=== PATIENT | female | born 1975 | race African-American/Black ===

== ENCOUNTER 2022-05-24 14:57 | Emergency (ER) | payer BC, SELFPAY ==
--- NOTE | ~2022-05-24 | XR_ITS ---
EXAM: XR finger 5th LT min 2V DATE: 05/24/2022 15:34 HISTORY: LT 5TH FINGER PAIN , INJURY . COMPARISON: None available. FINDINGS: Normal mineralization. No fracture or dislocation. No lytic or blastic lesion. Mild scatte red degenerative change. No erosion or periosteal change. Soft tissues within normal limits. IMPRESSION: No acute osseous finding in the left fifth digit. Reviewed, dictated and finalized at location [facility]
--- NOTE | 2022-05-24 15:01 | ED.UPPEXIN ---
HPI - Extremity Injury (Upper) General Chief Complaint: Extremity Injury, Upper Stated Complaint: Left pinky finger injury Time Seen by Provider: 05/24/22 15:01 Source: patient Mode of arrival: ambulatory Limitations: no limitations History of Present Illness HPI narrative: Ms. Choi is a 47-year-old female patient presenting to the clinic today with complaints of left 5th finger injury. She reports she smashed her left pinky finger in between a folding chair and then smacked her finger up against a wall. Related Data Home Medications Medication Instructions Recorded Confirmed amlodipine 10 mg tablet 10 mg DAILY 05/24/22 05/24/22 Allergies Allergy/AdvReac Type Severity Reaction Status Date / Time tramadol AdvReac Nausea and Verified 05/24/22 15:08 Vomiting Review of Systems Review of Systems: Pertinent positives per HPI. Patient denies any fever, chills, rash, headache, visual changes, dizziness, cough, runny nose, sore throat, shortness of breath, chest pain, palpitations, nausea, vomiting, diarrhea, constipation, abdominal pain, or any urinary issues. PMFSH Social History Social History Alcohol intake: never Comments At the time of my signature, I reviewed and agree with the nursing past medical, surgical, social, and family history. There is no relevant family history pertinent to the patient complaint. Exam Narrative: General: Well-developed, well nourished, in no apparent distress Head: Normocephalic, atraumatic. Cardio: Regular rate and rhythm, s1 and s2 normal, no murmur appreciated. Resp: Clear to auscultation bilaterally, no rhonchi, rales, wheezing or rubs. Musculoskeletal: No deformity, redness and swelling noted to the proximal left 5th finger joint, tender to palpation, grossly normal range of motion, muscle strength strong and equal, peripheral pulse strong, no cyanosis, normal gait and station Course Course Emergency Course: Portions of this record may have been created with voice recognition software. Level of Care: Express Care Visit Vital Signs Vital signs: Vital Signs Temperature 36.6 C 05/24/22 15:06 Pulse Rate 70 05/24/22 15:06 Respiratory Rate 18 05/24/22 15:06 Blood Pressure 171/98 H 05/24/22 15:06 Pulse Oximetry 100 05/24/22 15:06 Oxygen Delivery Room Air 05/24/22 15:06 Temperature 36.6 C 05/24/22 15:06 Pulse Rate 70 05/24/22 15:06 Respiratory Rate 18 05/24/22 15:06 Blood Pressure 171/98 H 05/24/22 15:06 Pulse Oximetry 100 05/24/22 15:06 Oxygen Delivery Room Air 05/24/22 15:06 Vital signs reviewed MDM - Extremity Injury (Upper) MDM Narrative Medical decision making narrative: At the time of visit patient is resting comfortably on the exam table. x-ray was completed and was negative for any sign of fracture or malalignment of the left 5th finger. I suspect the patient has a contusion/ soft tissue injury of the left 5th finger. Supportive measures were discussed with the patient she voiced understanding of discharge instructions and agrees to treatment plan. Differential Diagnosis Differential diagnosis: Likely other ( Finger fracture, finger sprain , finger contusion) Imaging Data Radiologist's impression: Close Finger X-Ray (Signed) [facility] - 05/24/22 Launch?[facility] [place] [address] XRay Report Signed Patient: Catrachita Choi : 1975 MR#: [id number] Age/Sex: 47 / F Acct:[id number] Loc: [facility]? ? ADM Date: 05/24/22Attending Dr: Ordering Physician: Prosper Contreras APRN Date of Service: 05/24/22 Procedure(s): XR finger 5th LT min 2V Accession Number(s): [id number] cc: Ananya, Raya Gonzalez APRN; Prosper Contreras APRN~ EXAM:? XR finger 5th LT min 2V DATE: 05/24/2022 15:34 HISTORY: LT 5TH FINGER PAIN ,
[2022-05-24 15:06] VITALS: BP 171/98; PULSE 70; RESP 18; TEMP 36.6; O2SAT 100
== END 2022-05-24 15:54 | disposition home or self-care (01) ==
PROVIDERS: Emergency Provider Nurse Practitioner Family; PCP Nurse Practitioner Family
DX: S60.052A Contusion of left little finger without damage to nail, initial encounter (principal); X58.XXXA Exposure to other specified factors, initial encounter; M25.442 Effusion, left hand
CPT/HCPCS: 73140; 99213; G0463

== ENCOUNTER 2024-10-01 16:49 | Inpatient (IN) | payer OTHER, SELFPAY ==
[2024-10-01] VITALS (22 sets, daily range): BP systolic 136–161; BP diastolic 76–105; PULSE 64–108; RESP 13–25; TEMP 36.8; O2SAT 98–100
--- NOTE | ~2024-10-01 | CT_ITS ---
EXAMINATION: CTA brain carotid DATE: 10/01/2024 23:11 INDICATION: Persistent dizziness TECHNIQUE: Computed tomographic angiography (CTA) of the head was performed without and with 100 mL O mnipaque-350 intravenous contrast. CTA of the neck was performed with intravenous contrast. The dose- length product was 1746.99 mGy-cm. Maximum intensity projection and volume rendered 3D-reconstruction s were created by the technologist on a separate workstation. COMPARISON: None. FINDINGS: CT BRAIN: No acute large vessel infarct, intracranial hemorrhage, mass, or hydrocephalus. Nodular mucosal thick ening in all paranasal sinuses except the frontal sinuses. Aerated secretions in the left maxillary a nd ethmoid sinuses. The mastoid air cells are clear. CTA HEAD: 3 mm saccular aneurysm projecting off the left anterior cerebral artery at the level of the anterior communication artery. 4 mm hyperdensity at the anterior interhemispheric fissure, associated with the anterior portion of the inferior sagittal sinus, and enhancing to the same degree. No large vessel o cclusion, high flow vascular malformation or extravasation. CTA NECK: Aortic arch and proximal great vessels: Normal arch anatomy. Mild dilation of the aortic arch to 3.1 cm Atherosclerotic calcifications at the visualized aortic arch and proximal great vessels. Right common carotid, carotid bifurcation, and internal carotid artery: Calcified atherosclerotic christina que at the carotid bifurcation.There is % stenosis of the proximal right internal carotid artery rela tive to normal distal artery lumen diameter (NASCET criteria). Left common carotid, carotid bifurcation, and internal carotid artery: Calcified atherosclerotic plaq ue at the carotid bifurcation.There is % stenosis of the proximal left internal carotid artery relati ve to normal distal artery lumen diameter (NASCET criteria). Vertebral arteries: Somewhat limited evaluation of the vertebral arteries due to beam hardening, meta l artifact, and quantum mottle. No significant plaque or stenosis. Left vertebral artery is dominant. Other findings: Enlarged thyroid. 2.2 cm left thyroid nodule. IMPRESSION: No acute intracranial process. Mucoperiosteal sinus disease, with possible acute sinusitis involving the left maxillary and ethmoid sinuses. No large vessel intracranial occlusion or high-grade intracranial stenosis. 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 4 mm h yperdensity associated with the anterior inferior sagittal sinus, possibly representing a small venou s confluence. DVA, AVM, fenestration, or aneurysm not excluded. Consider nonemergent but timely MRI o f the brain without and with contrast, with MRA/MRV. No carotid or vertebral artery occlusion, dissection, or significant stenosis. 2.2 cm left thyroid nodule, recommend outpatient thyroid ultrasound for further characterization. Reviewed, dictated and finalized at location K. IMPRESSION: No acute intracranial process. Mucoperiosteal sinus disease, with possible acute sinusitis involving the left maxillary and ethmoid sinuses. No large vessel intracranial occlusion or high-grade intracranial stenosis. 3 mm left anterior cerebral artery aneurysm at the level of the anterior commun ication artery. 4 mm hyperdensity associated with the anterior inferior sagitta l sinus, possibly representing a small venous confluence. DVA, AVM, fenestratio n, or aneurysm not excluded. Consider nonemergent but timely MRI of the brain w ithout and with contrast, with MRA/MRV. No carotid or vertebral artery occlusion, dissection, or significant stenosis. 2.2 cm left thyroid nodule, recommend outpatient thyroid ultrasound for further characterization.
--- NOTE | ~2024-10-01 | MR_ITS ---
EXAMINATION: MR brain/brain stem wo con DATE: 10/02/2024 13:48 INDICATION: Transient ischemic episode TECHNIQUE: Magnetic resonance imaging (MRI) of the brain and brainstem was performed without intraven ous contrast. Sequences included sagittal and axial T1-weighted SE, axial diffusion-weighted FS SE, a xial T2*-weighted GRE, axial T2-weighted FLAIR, and axial T2-weighted FSE. Apparent diffusion coeffic ient (ADC) maps were created. COMPARISON: None. FINDINGS: There are no areas of restricted diffusion to suggest acute infarction. No intracranial hemorrhage or abnormal intracranial mass lesion. There are scattered areas of nonspecific increased T2-weighted si gnal intensity in the cerebral white matter, predominantly involving the deep and periventricular whi te matter. There are no intraparenchymal signal abnormalities seen on the other pulse sequences. The ventricles are symmetric and normal in size. There are no abnormal extra-axial fluid collections. Derek w voids are seen in the cerebral arteries on the T2-weighted sequences consistent with their expected patency. Moderate mucosal thickening throughout the paranasal sinuses most prominent in the left max illary sinus. Visualized orbits and soft tissues are unremarkable. IMPRESSION: 1. Normal brain. 2. Sinus disease. Reviewed, dictated and finalized at location A.
--- NOTE | ~2024-10-01 | CT_ITS ---
EXAMINATION: CT diagnostic chest wo con DATE: 10/01/2024 23:02 INDICATION: diffuse rhonchi TECHNIQUE: Computed tomography (CT) of the chest was performed with 100 mL Omnipaque-350 intravenous contrast. Automated exposure control and iterative reconstruction technique were employed. The dose-l ength product was 723.76 mGy-cm. COMPARISON: X-ray chest, same date. FINDINGS: CHEST: Thoracic aorta: Dilation of the thoracic aortic arch to 3.3 cm. Mild atherosclerotic calcification. Lung parenchyma and airways: Scattered subcentimeter pulmonary nodules. Patent airways. Mild dependen t scar/atelectasis. Scattered small air cysts. Thoracic inlet, axillae and chest wall: Enlarged thyroid gland. No axillary lymphadenopathy. Mediastinum: Dilated central pulmonary arteries. No lymphadenopathy. Heart and pericardium: Cardiomegaly. Coronary artery calcifications: Absent. Pleura: No effusion or mass. Upper abdomen: No significant finding. Thoracic bones: No acute osseous finding in the chest. IMPRESSION: Thyroid goiter. Scattered sub-6 mm pulmonary nodules, which require no additional evaluation unless the patient is at high risk, in which case consider low-dose noncontrast CT of the chest in one year. Dilated central pulmonary arteries as can be seen with pulmonary arterial hypertension. Reviewed, dictated and finalized at location K. IMPRESSION: Thyroid goiter. Scattered sub-6 mm pulmonary nodules, which require no additional evaluation un less the patient is at high risk, in which case consider low-dose noncontrast C T of the chest in one year. Dilated central pulmonary arteries as can be seen with pulmonary arterial hyper tension.
--- NOTE | ~2024-10-01 | XR_ITS ---
XR chest 1V portable Ordering provider: Spring Mejia History: 49 years Female with . palpitations . Comparison: None. FINDINGS: MEDIASTINUM: The cardiac silhouette is not enlarged. LUNGS: No infiltrates, effusions or pneumothorax. OTHER: No free air under the diaphragm. IMPRESSION: No acute cardiopulmonary pathology Reviewed, dictated and finalized at location A.
--- NOTE | ~2024-10-01 | US_ITS ---
US thyroid INDICATION: Thyroid goiter TECHNIQUE: Real-time sonographic images of the thyroid gland were obtained. COMPARISON: No prior studies for comparison. FINDINGS: The right thyroid lobe measures 6.5 x 2.4 x 2.1 cm. The left thyroid lobe measures 7 x 2.2 x 3 cm. There is normal echotexture and echogenicity throughout the thyroid gland. There is a 11 mm cyst in the right thyroid lobe, no clinical significance. There are multiple small cysts of the left lobe. Additionally in the left lobe there is a complex heterogeneous mass measuring 2.9 x 2.3 x 2.2 c m which is solid, predominantly hypoechoic, wider than tall, ill-defined margins without echogenic fo ci, TR 4. Increased bilateral vascular flow is present. IMPRESSION: 1. Complex 2.9 cm left thyroid mass, TR 4. Ultrasound-guided fine-needle aspiration biopsy recommend ed. Reviewed, dictated and finalized at location A. IMPRESSION: 1. Complex 2.9 cm left thyroid mass, TR 4. Ultrasound-guided fine-needle aspir ation biopsy recommended.
--- NOTE | ~2024-10-01 | MR_ITS ---
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 COMPARISON: None. FINDINGS: There is normal flow related signal seen within the vertebral, basilar and internal carotid arteries. There is no proximal stenosis. Both A1 and P1 segments are patent. Again seen is a 3 mm aneurysm a rising from the origin of the intercommunicating artery from the left anterior cerebral artery. Flow in the cerebral arteries is symmetric. IMPRESSION: 1. Redemonstration of a 3 mm saccular aneurysm arising at the junction of the anterior cerebral and a nterior communicating arteries. Otherwise unremarkable brain MR angiogram. Reviewed, dictated and finalized at location A. IMPRESSION: 1. Redemonstration of a 3 mm saccular aneurysm arising at the junction of the a nterior cerebral and anterior communicating arteries. Otherwise unremarkable br ain MR angiogram.
--- OUTSIDE RECORDS SUMMARY | 2024-10-01 16:52 | XMS_ITS | CONTINUITY OF CARE DOCUMENT ---
Author Name rober richter Address Unknown Organization [facility] Address [address] [place] [address] Phone [phone] Care Team Providers Care Yeast Washer Name Role Phone Brisa DOSS, Amanuel Unavailable IRVING ISBELL MD Unavailable IRVING ISBELL MD Unavailable PROBLEMS Condition Status Date Provider Notes HTN active Amanuel Ledezma MD Family History of CVA or Stroke: active ? Holden Ledezma MD Family History of Sudden Cardiac : active ? Amanuel Ledezma MD Hypertension active ? Amanuel Ledezma MD Obesity active Amanuel Ledezma MD ENCOUNTERS Date Type Provider Location Encounter Diagnosis - In-person encounter Office Visit Amanuel Ledezma MD [place] [facility] HTNFamily History of CVA or Stroke:Family History of Sudden Cardiac :Hypertension Obesity VITAL SIGNS Date Observation Value Provider Body Mass Index (Ratio) 41.50 kg/m2 Dane Ledezma MD blood pressure, cuff size large Ke yulissa Borja blood pressure, diastolic 100 mm[Hg] Keron Borja blood pressure, systolic 160 mm[Hg] Janie Borja oxygen saturation, oximetry 98 % Melany Borja respiratory rate E&M 18 /min Melany estrella pulse rate 72 /min Melany painting weight E&M 265 [lb_av] Melany Makamandeep lder height E&M 67 [in_i] Melany Sloancrystalilla lder ALLERGIES No Known Drug Allergies HISTORY OF MEDICATION USE Medication Status Instructions Dates Provider Indications Com ments AMLODIPINE BESYLATE 10 MG ORAL TABLET active 1 po daily 3 Amanuel Ledezam MD METOPROLOL TARTRATE 25 MG ORAL TABLET active one tab. twice daily 3 Melany oBrja SOCIAL HISTORY Date Observation Value Provider alcohol use no Amanuel Leggett D passive cigarette sm payton exposure no Amanuel Ledezma MD social history E&M S moking History: Gab gomez is a former smoker. 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 Ledezma MD smoking, date started 17 Melany Borja smoking history, tot al pack/day 1/2 ppd Melany Jonh smoking, year quit 2008 Melany rocha cigarette use yes Melany Makluca stallings smoking status Former smoker Melany Maksylvia parsons FAMILY HISTORY Family Member Condition Mother Negative FH of Coron levy Artery Disease Father Family History of Vaughn dden Cardiac : Father Family History of CV A or Stroke: INSURANCE PROVIDERS Payer name Policy type / Coverage type [place] [employer] MEDICAID (2) Medicaid [id number] ADVANCE DIRECTIVES Name Date DISCUSSED - NO DECISION MADE TREATMENT PLAN Date Name Performer [facility] up [facility] up [facility] elig[facility] Follow up Ra eligio Ledezma [facility] Follow up Ra eligio Ledezma MD HISTORY OF PROCEDURES Procedure Date Procedure Name Provider Procedure Notes S tatus EKG Amanuel Ledezma MD complete d SNOMED-CT: [id number] Current Medications Documented Amanuel Ledezma MD completed
--- OUTSIDE RECORDS SUMMARY | 2024-10-01 16:52 | XMS_ITS | Encounter Summary ---
Author Organization [facility] Address [address] [place] [address] Care Team Providers Care Building Repair Maintenance Supervisor Name Role Phone Raya Hare NP Primary Care Provider Divina Alicea MD Primary Care Provider + Encounter Details Date Type Department Care Team (Late st Contact Info) Description 08/30/2021 [email or web address] Message Enc [facility] Family Medicine [address] [address] Raya Hare NP Hematology referral Social History Tobacco Use Types Packs/Day Years Used Date Smoking Tobacco: Former Cigarettes Q uit: 05/22/2009 Smokeless Tobacco: Never Alcohol Use Standard Drinks/Week Comments Not Currently 0 (1 standard drink = 0.6 oz pur e alcohol) PHQ-2 Answer Date Recorded PHQ-2 Score - If the patient scores above 3, please move on to questions 3-9 0 02/17/2020 Comments No Sex and Gender Information Value Date Recorded Sex Assigned at Female 06/10/2024 11:08 AM MIXER WHIPPED TOPPING Legal Sex Female 5:01 PM CDT Gender Identity Female 09/30/2024 12:20 PM CDT Sexual Orientation Not on file documented as of this encounter Plan of Treatment Upcoming Encounters Date Type Department Care Team (Late st Contact Info) Description 07/07/2025 10:30 AM MIXER WHIPPED TOPPING Office Visit [facility] Family Medicine [facility] [address] [place] [address] [phone] Divina Ness MD [address] [place] [address] documented as of this encounter Visit Diagnoses Not on filedocumented in this encounter Additional Health Concerns Infection Onset Date Last Indicated Resolved Time 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
--- OUTSIDE RECORDS SUMMARY | 2024-10-01 16:52 | XMS_ITS | Encounter Summary ---
Author Organization [facility] Address [address] [place] [address] Care Team Providers Care Bull Driver Name Role Phone Raya Hare ORTHOPEDICS TEACHER Primary Care Provider Divina Alicea MD Primary Care Provider + Encounter Details Date Type Department Care Team (Late Contact Info) Description 11/01/2022 Avance Pay Message Enc [facility] Family Medicine [facility] [address] [place] [address] Shahana, [facility] Provider Amlodipine Social History Tobacco Use Types Packs/Day Years [...] Sex Assigned at Female 06/10/2024 11:08 AM RESTAURANT HOSTESS Legal Sex Female 5:01 PM CDT Gender Identity Female 09/30/2024 12:20 PM CDT Sexual Orientation Not on file COVID-19 Exposure Response Date Recorded In the last 10 days, have yo u been in contact with someone who was confirmed or suspected to have Coronavirus/COVID-19? No / Unsure 10/13/2022 2:54 PM CDT documented as of this encounter Plan of Treatment Upcoming Encounters Date Type Department Care Team (Late st Contact Info) Description 07/07/2025 10:30 AM RESTAURANT HOSTESS Office Visit [facility] Family Medicine [facility] [address] [facility] [address] [place] [address] Divina Ness MD [address] [place] [address] documented as of this encounter Visit Diagnoses Not on filedocumented in this encounter Additional Health Concerns Infection Onset Date Last Indicated Resolved Time MRSA 12/26/2016 12/26/2016 COVID-19 Rule Out 05/02/2024 05/02/2024 05/02/2024 3:48 PM RESTAURANT HOSTESS documented as of this encounter Care Teams Bull Driver Relationship Specialty Start Date End Date Raya Hare ORTHOPEDICS TEACHER PCP - General NURSE PRACTITIONER 02/17/20 10/18/23 Divina Ness MD [address] [place] [address] PCP - General FAMILY PRACTICE 03/11/24 documented as of this encounter
--- OUTSIDE RECORDS SUMMARY | 2024-10-01 16:52 | XMS_ITS | Encounter Summary ---
Author Organization [facility] Address [address] [place] [address] Care Team Providers Care Track Inspecting Supervisor Name Role Phone Divina Ness MD Primary Care Provider + Encounter Details Date Type Department Care Team (Latest Contact Info) Description 09/30/2024 Travel Social History Tobacco Use Types Packs/Day Years Used Date Smoking Tobacco: Former Cigarettes 2 2009 Passive Smoke Exposure: Past Smokeless Tobacco: Never Alcohol Use Standard Drinks/Week Comments Never 0 (1 standard drink = 0.6 oz pur e alcohol) PHQ-2 Answer Date Recorded Patient Health Questionnaire-2 Score 0 06/24/2024 Comments No Sex and Gender Information Value Date Recorded Sex Assigned at Female 06/10/2024 11:08 AM TEACHER ASSISTANT Legal Sex Female 5:01 PM CDT Gender Identity Female 09/30/2024 12:20 PM CDT Sexual Orientation Not on file documented as of this encounter Plan of Treatment Upcoming Encounters Date Type Department Care Team (Late st Contact Info) Description 07/07/2025 10:30 AM TEACHER ASSISTANT Office Visit [facility] Family [facility] [address] [place], [place] [phone] Divina Ness MD [address] [place] [address] documented as of this encounter Visit Diagnoses Not on filedocumented in this encounter Additional Health Concerns Infection Onset Date Last Indicated Resolved Time MRSA 12/26/2016 12/26/2016 documented as of this encounter Care Teams Track Inspecting Supervisor Relationship Specialty Start Date End Date Divina Ness MD [address] [place] [address] PCP - General FAMILY PRACTICE 03/11/24 documented as of this encounter
--- OUTSIDE RECORDS SUMMARY | 2024-10-01 16:52 | XMS_ITS | Encounter Summary ---
Author Organization [facility] Address [address] [place] [address] Care Team Providers Care Reducer Name Role Phone Divina Ness MD Primary Care Provider + Reason for Visit * Reason Comments Dizziness/lightheadedness Patient presen ts with c/o dizziness and lightheaded x Monday Encounter Details Date Type Department Care Team (Late st Contact Info) Description 09/30/2024 12:20 PM CDT Office Visit [facility] Medical [facility] [address] [id number] Marivel Robison NP [address] [place] [address] Dizziness/lightheaded ness (Patient presents with c/o dizziness and lightheaded x Monday) Social History Tobacco Use Types Packs/Day Years Used Date Smoking Tobacco: Former Cigarettes 2 - 2009 Passive Smoke Exposure: Past Smokeless Tobacco: Never Tobacco Cessation:Counseling Given: No Alcohol Use Standard Drinks/Week Comments Never 0 (1 standard drink = 0.6 oz pur e alcohol) PHQ-2 Answer Date Recorded Patient Health Questionnaire-2 Score 0 06/24/2024 Comments No Sex and Gender Information Value Date Recorded Sex Assigned at Female 06/10/2024 11:08 AM SOCK EXAMINER Legal Sex Female 5:01 PM CDT Gender Identity Female 09/30/2024 12:20 PM CDT Sexual Orientation Not on file documented as of this encounter Last Filed Vital Signs Vital Sign Reading Time Taken Comments Blood Pressure 122/92 09/30/2024 12:21 PM CDT Pulse 66 09/30/2024 12:21 PM CDT Temperature 36.4 C (97.6 F) 09/30/2024 12:21 PM CDT Respiratory Rate 20 09/30/2024 12:21 PM CDT Oxygen Saturation 100% 09/30/2024 12:21 PM CDT Inhaled Oxygen Concentration - - Weight 129.3 kg (285 lb) 09/30/2024 12:21 PM CDT Height - - Body Mass Index 46 06/24/2024 10:40 AM SOCK EXAMINER documented in this encounter Patient Instructions * Attachments The following attachments cannot be sent through Care Everywhere. * Vertigo (a Type of Dizziness) Discharge Instructions (Jamaican) * Vestibular Exercises (Jamaican) documented in this encounter Progress Notes * Marivel Robison NP - 09/30/2024 12:20 PM CDT Reason for Visit: Dizziness/lightheadedness (Patient presents with c/o dizziness and lightheaded x Monday) History of Present Illness: Catrachita is a 49-year-old female who presents to office with complaints of dizziness and lightheadedness for the past 3 days. She denies any recent injury. Denies any severe headache or blurred vision. Denies any chest pain, palpitations shortness of breath. Denies any new medications that she recently started. She reports her symptoms occur at random times and will last for a few seconds. Medications: Current Outpatient Medications: albuterol (PROVENTIL) (2.5 MG/3ML) 0.083% nebulizer solution, Take 3 mLs (2.5 mg total) by nebulization every 6 (six) hours as needed for Wheezing., Disp: 360 mL, Rfl: 1 albuterol sulfate HFA 108 (90 Base) MCG/ACT inhaler, Inhale 2 puffs into the lungs every 6 (six) hours as needed for Wheezing. May substitute any form of albuterol., Disp: 18 g, Rfl: 3 amLODIPine (NORVASC) 5 MG tablet, Take 1 tablet (5 mg total) by mouth daily., Disp: 90 tablet, Rfl:1 clonazePAM (KLONOPIN) 0.5 MG tablet, TAKE 1 TABLET(0.5 MG) BY MOUTH THREE TIMES DAILY NEEDED FORANXIETY (Patient taking differently: Take by mouth 3 (three) times daily as needed. FOR ANXIETY prn), Disp: 10 tablet, Rfl: 0 cyclobenzaprine (FLEXERIL) 10 MG tablet, Take 1 tablet (10 mg total) by mouth 3 (three) times dailyas needed for Muscle Spasms., Disp: 30 tablet, Rfl: 2 fluticasone-salmeterol (ADVAIR DISKUS) 500-50 MCG/ACT inhaler, Inhale 1 puff into the lungs 2 (two)times daily., Disp: 180 each, Rfl: 3 lidocaine (LIDODERM) 5 %, APPLY ONE PATCH ON THE SKIN DAILY, REMOVE AND DISCARD PATCH WITHIN 12 HOURS OR DIRECTED BY MD, Disp: 30 patch, Rfl: 0 meclizine (ANTIVERT) 12.5 MG tablet, Take 1 tablet (12.5 mg total) by mouth 3 (three) times daily as needed., Disp: 30 tablet, Rfl: 0 meloxicam (MOBIC) 7.5 MG tablet, Take 1 tablet (7.5 mg total) by mouth daily., Disp: 30 tablet, Rfl: 1 PARoxetine (PAXIL) 30 MG tablet, Take 1 tablet (30 mg total) by mouth every morning., Disp: 90 tablet, Rfl: 0 Review of patient's allergies indicates: Allergen Reactions Tramadol Unknown and Nausea and Vomiting Past Medical History[1] OB History No obstetric history on file. Past Surgical History[2] Social History[3] Family History[4] ROS: Review of Systems Constitutional: Negative for chills, diaphoresis, fever, malaise/fatigue and weight loss. HENT: Negative for congestion, ear discharge, ear pain, hearing loss, nosebleeds, sinus pain, sore throat and tinnitus. Eyes: Negative for blurred vision, double vision, photophobia, pain, discharge and redness. Respiratory: Negative for cough, hemoptysis, sputum production, shortness of breath, wheezing and stridor. Cardiovascular: Negative for chest pain, palpitations, orthopnea, claudication, leg swelling and PND. Gastrointestinal: Negative for abdominal pain, blood in stool, constipation, diarrhea, heartburn, melena, nausea and vomiting. Genitourinary: Negative for dysuria, flank pain, frequency, hematuria and urgency. Musculoskeletal: Negative for back pain, falls, joint pain, myalgias and neck pain. Skin: Negative for itching and rash. Neurological: Positive for dizziness (intermittent). Negative for tingling, tremors, sensory change, speech change, focal weakness, seizures, loss of consciousness, weakness and headaches. Endo/Heme/Allergies: Negative for environmental allergies and polydipsia. Does not bruise/bleed easily. Psychiatric/Behavioral: Negative for depression, hallucinations, memory loss, substance abuse and suicidal ideas. The patient is not nervous/anxious and does not have insomnia. Physical Exam Constitutional: General: She is not in acute distress. Appearance: Normal appearance. She is obese. She is not ill-appearing, toxic- appearing or diaphoretic. Eyes: Pupils: Pupils are equal, round, and reactive to light. Cardiovascular: Rate and Rhythm: Normal rate and regular rhythm. Pulses: Normal pulses. Heart sounds: Normal heart sounds. Pulmonary: Effort: Pulmonary effort is normal. Breath sounds: Normal breath sounds. Musculoskeletal: Right lower leg: No edema. Left lower leg: No edema. Skin: General: Skin is warm and dry. Findings: No rash. Neurological: General: No focal deficit present. Mental Status: She is alert and oriented to person, place, and time. Comments: Negative roberta phillip Psychiatric: Mood and Affect: Mood normal. Behavior: Behavior normal. Thought Content: Thought content normal. Vitals: 09/30/24 1221 09/30/24 1246 09/30/24 1247 09/30/24 1249 BP: (!) 122/92 BP - Orthostatic: 130/78 141/88 147/89 Patient Position: Sitting Lying Orthostatic Sitting Orthostatic Standing Orthostatic BP Location: Left arm Left arm Left arm Left arm Pulse: 66 Pulse - Orthostatic: 60 64 82 Temp: 97.6 ??F (36.4 ??C) Weight: 129.3 kg (285 lb) Assessment/Recommendations/Plan Encounter Diagnose(s) ICD-10-CM SNOMED CT(R) 1. Dizziness R42 DIZZINESS CBC W/DIFF AUTOMATED FERRITIN COMPREHENSIVE METABOLIC PANEL TSH W/REFLEX meclizine (ANTIVERT) 12.5 MG tablet TSH W/REFLEX COMPREHENSIVE METABOLIC PANEL FERRITIN CBC W/DIFF AUTOMATED 2. Lightheadedness R42 LIGHTHEADEDNESS CBC W/DIFF AUTOMATED FERRITIN COMPREHENSIVE METABOLIC PANEL TSH W/REFLEX TSH W/REFLEX COMPREHENSIVE METABOLIC PANEL FERRITIN CBC W/DIFF AUTOMATED COLLECTION VENOUS BLOOD VENIPUNCTURE 3. Anemia, unspecified type D64.9 ANEMIA CBC W/DIFF AUTOMATED FERRITIN FERRITIN CBC W/DIFF AUTOMATED Discussed with patient differential diagnosis to cause dizziness and lightheadedness. At this current time patient to rise slowly upon standing. Encourage staying well-hydrated. Will provide a short prescription of meclizine to help with symptom management. Patient updated us in 2 days how she is doing. We also obtain lab work today drawl any underlying issue causing her symptoms. Follow up: update in 2 days MARIVEL ROBISON NP 09/30/2024 2:44 PM [1] Past Medical History: Diagnosis Date Anemia Anxiety Asthma (HHS/HCC) Depression Hypertension [2] Past Surgical History: Procedure Laterality Date SECTION [3] Social History Tobacco Use Smoking status: Former Current packs/day: 0.00 Types: Cigarettes Start date: 2004 Quit date: 2009 Years since quittin.3 Passive exposure: Past Smokeless tobacco: Never Vaping Use Vaping status: Never Used Substance Use Topics Alcohol use: Never Drug use: Yes Types: Marijuana Comment: daily [4] Family History Problem Relation Name Age of Onset Scleroderma Mother Stroke Father Jassi No Known Problems Sister Heart Disease Brother Dre Mental Health Daughter No Known Problems Daughter No Known Problems Daughter Breast Cancer Maternal Aunt 52 Cosigned by Divina Ness MD at 10/01/2024 7:42 AM CDT documented in this encounter Plan of Treatment Upcoming Encounters Date Type Department Care Team (Late st Contact Info) Description 07/07/2025 10:30 AM SOCK EXAMINER Office Visit [facility] [place] [address] [facility] [address] [place] [address] Divina Ness MD [address] [place] [id number] documented as of this encounter Procedures Procedure Name Priority Date/Time Associated Diagnosis Comments COLLECTION VENOUS BLOOD VENIPUNCTURE Routine 09/30/2024 12:52 PM CDT Lightheadedness TSH W/REFLEX Routine 09/30/2024 12:52 PM CDT Dizziness Lightheadedness COMPREHENSIVE METABOLIC PANEL Routine 09/30/2024 12:52 PM CDT Dizziness Lightheadedness CBC W/DIFF AUTOMATED Routine 09/30/2024 12:52 PM CDT Dizziness Lightheadedness Anemia, unspecified type FERRITIN Routine 09/30/2024 12:52 PM CDT Dizziness Lightheadedness Anemia, unspecified type documented in this encounter Results * TSH W/REFLEX (09/30/2024 12:52 PM CDT) TSH 0.573 0.358 - 3.740 uIU/ML 10/01/2024 10:53 AM CDT [facility] 09/30/2024 12:5 2 PM CDT us Marivel Robison [employer] Final Res ult [facility] [address] [place] [address], * (ABNORMAL) COMPREHENSIVE METABOLIC PANEL (09/30/2024 12:52 PM CDT) SODIUM S/P/B 140 136 - 145 MMOL/L 10/01/2024 10:53 AM CDT [facility] POTASSIUM S/P/B 4.7 3.5 - 5.1 MMOL/L 10/01/2024 10:53 AM CDT [facility] CHLORIDE S/P/B 105 98 - 107 MMOL/L 10/01/2024 10:53 AM CDT [facility] CO2 28.3 21 - 32 MMOL/L 10/01/2024 10:53 AM CDT [facility] GLUCOSE 86 70 - 99 MG/DL 10/01/2024 10:53 [facility] BUN 20(H) 7 - 18 MG/DL 10/01/2024 10:53 AM [facility] CREATININE S/P/B 0.98 0.55 - 1.02 MG/DL 10/01/2024 10:53 AM T [facility] CALCIUM S/P/B 9.1 8.4 - 10.5 MG/DL 10/01/2024 10:53 AM CDT [facility] BILIRUBIN TOTAL S/P/B 0.2 0.2 - 1.0 MG/DL 10/01/2024 10:53 AM T [facility] ALKALINE PHOSPHATASE S/P/B 92 39 - 100 U/L 10/01/2024 10:53 AM T [facility] AST 12(L) 15 - 37 U/L 10/01/2024 10:53 AM T [facility] ALT 16 14 - 59 U/L 10/01/2024 10:53 AM T [facility] TOTAL PROTEIN S/P/B 6.8 6.4 - 8.2 G/DL 10/01/2024 10:53 AM [facility] ALBUMIN S/P/B 3.5 3.4 - 5.0 G/DL 10/01/2024 10:53 AM [facility] ANION GAP 6.7 5 - 15 MMOL/L 10/01/2024 10:53 AM T [facility] Comment:REFERENCE RANGE NOT ESTABLISHED OSMOLALITY (CALC) 292 MOSM/KG 025 10:53 AM T [facility] Comment:REFERENCE RANGE NOT ESTABLISHED GFR ESTIMATE 72(L) >90 ML/MIN/1. 73 M2 10/01/2024 10:53 AM [facility] GFR NOTES GFR REFERENCE S: 10/01/2024 10:53 AM [facility] Comment: THE ESTIMATED GFR IS CALCULATED USING THE 2020 CKD-EPI EQUATION. THE FOLLOWING CATEGORIES FOR GRADING RENAL FUNCTION ARE RECOMMENDED BY THE INTERNATIONAL SOCIETY OF NEPHROLOGY (KDIGO 2012 CLINICAL PRACTICE GUIDELINE). G1,NORMAL OR HIGH: >89 ml/min/1.73 m2 G2,MILDLY DECREASED: 60-89 ml/min/1.73 m2 G3A,MILDLY TO MODERATELY DECREASED: 45-59 ml/min/1.73 m2 G3B,MODERATELY TO SEVERELY DECREASED: 30-44 ml/min/1.73 m2 G4,SEVERELY DECREASED: 15-29 ml/min/1.73 m2 G5,KIDNEY FAILURE: <15 ml/min/1.73 m2 09/30/2024 12:5 2 PM CDT Marivel Robison [employer] Final Res ult Performing Organization Address [facility]/ZIP Co de Phone Number [address] [address], * FERRITIN (09/30/2024 12:52 PM CDT) FERRITIN 39.0 8 - 252 NG/ML 10/01/2024 10:53 AM CDT [facility] 09/30/2024 12:5 2 PM CDT Marivel Robison [employer] Final Res ult Performing Organization Address City/[facility]/ZIP Co de Phone Number [address] [address], [place] [phone] * (ABNORMAL) CBC W/DIFF AUTOMATED (09/30/2024 12:52 PM CDT) WBC 6.34 4.00 - 10.80 x10'3/uL 09/30/2024 7:50 PM CDT [facility] RBC 3.49(L) 4.10 - 5.40 x10'6/uL 09/30/2024 7:50 PM [facility] HGB 10.6(L) 12.0 - 16.0 G/DL 09/30/2024 7:50 PM CDT [facility] HCT 33.8(L) 36.0 - 47.0 % 09/30/2024 7:50 PM CDT [facility] MCV 96.8 78.0 - 100.0 FL 09/30/2024 7:50 PM CDT [facility] MCH 30.4 27.0 - 31.0 PG 09/30/2024 7:50 PM CDT [facility] MCHC 31.4(L) 33.0 - 36.0 G/DL 09/30/2024 7:50 PM T [facility] RDW 14.6(H) 11.5 - 14.5 % 09/30/2024 7:50 PM CDT [facility] PLT 407(H) 150 - 350 x10'3/uL 09/30/2024 7:50 PM CDT [facility] MPV 10.8(H) 7.4 - 10.4 FL 09/30/2024 7:50 PM CDT [facility] DIFFERENTIAL TYPE AUTOMATED DIFFERENTIAL 09/30/2024 7:50 PM CDT [facility] NEUTROPHILS % 65.6 % 09/30/2024 7:50 PM CDT [facility] LYMPHOCYTES % 24.6 % 09/30/2024 7:50 PM CDT [facility] MONOCYTES % 6.8 % 09/30/2024 7:50 PM CDT [facility] EOSINOPHILS % 2.7 % 09/30/2024 7:50 PM CDT [facility] BASOPHILS % 0.3 % 09/30/2024 7:50 PM CDT [facility] IMMATURE GRANS % 0.0 % 09/30/2024 7:50 PM CDT [facility] ABS. NEUTROPHILS 4.16 1.60 - 8.30 x10'3/uL 09/30/2024 7:50 PM CDT -[facility] ABS. LYMPHOCYTES 1.56 0.80 - 4.70 x10'3/uL 09/30/2024 7:50 PM CDT [facility] ABS. MONOCYTES 0.43 0.00 - 1.50 x10'3/uL 09/30/2024 7:50 PM CDT [facility] ABS. EOSINOPHILS 0.17 0.00 - 0.40 x10'3/uL 09/30/2024 7:50 PM CDT [facility] ABS. BASOPHILS 0.02 0.00 - 0.20 x10'3/uL 09/30/2024 7:50 PM CDT -[facility] ABS. 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
--- OUTSIDE RECORDS SUMMARY | 2024-10-01 16:52 | XMS_ITS | Encounter Summary ---
Author Organization [facility] Address [address] [place] [address] Care Team Providers Care Coach Operator Name Role Phone Raya Hare NP Primary Care Provider Divina Alicea MD Primary Care Provider + Encounter Details Date Type Department Care Team (Late st Contact Info) Description 07/17/2023 MyChart Message Enc [facility] Family [facility] [address] [place] [address] Raya Hare NP Refill Social History Tobacco Use Types Packs/Day Years Used Date Smoking Tobacco: Former Cigarettes Q uit: 05/22/2009 Smokeless Tobacco: Never Alcohol Use Standard Drinks/Week Comments Not Currently 0 (1 standard drink = 0.6 oz pur e alcohol) PHQ-2 Answer Date Recorded Patient Health Questionnaire-2 Score 1 02/20/2023 Comments No Sex and Gender Information Value Date Recorded Sex Assigned at Female 06/10/2024 11:08 AM HOTEL ASSOCIATE Legal Sex Female 5:01 PM CDT Gender Identity Female 09/30/2024 12:20 PM CDT Sexual Orientation Not on file documented as of this encounter Progress Notes * Vijay Sims MA - 07/21/2023 8:13 AM CST Spoke to pt, she did recieve the medication requested. L ASSOCIATE documented in this encounter Plan of Treatment Upcoming Encounters Date Type Department Care Team (Late st Contact Info) Description 07/07/2025 10:30 AM HOTEL ASSOCIATE Office Visit [facility] Family Medicine [facility] [address] [place] [address] Divina Ness MD [address] [place], [place] [phone] documented as of this encounter Visit Diagnoses Not on filedocumented in this encounter Additional Health Concerns Infection Onset Date Last Indicated Resolved Time MRSA 12/26/2016 12/26/2016 COVID-19 Rule Out 05/02/2024 05/02/2024 05/02/2024 3:48 PM HOTEL ASSOCIATE documented as of this encounter Care Teams Coach Operator Relationship Specialty Start Date End Date Raya Hare ARSON AND BOMB INVESTIGATOR PCP - General NURSE PRACTITIONER 02/17/20 10/18/23 Divina Ness MD [address] [place] [address] PCP - General FAMILY PRACTICE 03/11/24 documented as of this encounter
--- OUTSIDE RECORDS SUMMARY | 2024-10-01 16:52 | XMS_ITS | Encounter Summary ---
Author Organization [facility] Address [address] [place] [address] Care Team Providers Care Director Distribution Name Role Phone Divina Ness MD Primary Care Provider + Encounter Details Date Type Department Care Team (Latest Contact Info) Description 10/01/2024 Results Follow-Up [facility] Family Medicine - [place] [address] [facility] [address] [place] [address] Marivel Robison NP [address] [place] [address] [place] [address] TSH W/REFLEX, COMPREHENSIVE METABOLIC PANEL, FERRITIN, CBC W/DIFF AUTOMATED Social History Tobacco Use Types Packs/Day Years [...] Sex Assigned at Female 06/10/2024 11:08 AM SOAKER HELPER Legal Sex Female 5:01 PM CDT Gender Identity Female 09/30/2024 12:20 PM CDT Sexual Orientation Not on file documented as of this encounter Plan of Treatment Upcoming Encounters Date Type Department Care Team (Late st Contact Info) Description 07/07/2025 10:30 AM SOAKER HELPER Office Visit [facility] Family [facility] - [place] [address] [facility] [address] [place] [address] Divina Ness MD [address] [place] [address] documented as of this encounter Visit Diagnoses Not on filedocumented in this encounter Additional Health Concerns Infection Onset Date Last Indicated Resolved Time MRSA 12/26/2016 12/26/2016 documented as of this encounter Care Teams Director Distribution Relationship Specialty Start Date End Date Divina Ness MD [address] [facility] [address] [place] [id number] PCP - General FAMILY PRACTICE 03/11/24 documented as of this encounter
--- OUTSIDE RECORDS SUMMARY | 2024-10-01 16:52 | XMS_ITS | Encounter Summary ---
Author Organization [facility] Address [address] [place] [address] Care Team Providers Care Linux System Administrator Name Role Phone Elmer Miranda DO Primary Care Provider [phone] Raya Hare NP Primary Care Provider Gertrudis Divina Gasca MD Primary Care Provider + Encounter Details Date Type Department Care Team (Latest Contact Info) Description 03/27/2018 Abstract [facility] Josué Farrell MD Social History Tobacco Use Types Packs/Day Years Used Date Smoking Tobacco: Never Assessed Comments Unknown Sex and Gender Information Value Date Recorded Sex Assigned at Female 06/10/2024 11:08 AM TELEMARKETING AGENT Legal Sex Female 5:01 PM CDT Gender Identity Female 09/30/2024 12:20 PM CDT Sexual Orientation Not on file documented as of this encounter Plan of Treatment Upcoming Encounters Date Type Department Care Team (Late st Contact Info) Description 07/07/2025 10:30 AM TELEMARKETING AGENT Office Visit [facility] Family Medicine [facility] [address] [facility] [address] [place] [address] [phone] Divina Ness MD [address] [facility] [address] [place] [address] documented as of this encounter Visit Diagnoses Not on filedocumented in this encounter Additional Health Concerns Infection Onset Date Last Indicated Resolved Time MRSA 12/26/2016 12/26/2016 COVID-19 Rule Out 05/02/2024 05/02/2024 05/02/2024 3:48 PM TELEMARKETING AGENT documented as of this encounter Care Teams Linux System Administrator Relationship Specialty Start Date End Date Elmer Miranda DO PCP - General FAMILY PRACTICE 04/16/18 02/16/20 Raya Hare NP PCP - General NURSE PRACTITIONER 02/17/20 10/18/23 Divina Ness MD [address] [address] PCP - General FAMILY PRACTICE 03/11/24 documented as of this encounter
--- OUTSIDE RECORDS SUMMARY | 2024-10-01 16:52 | XMS_ITS | Encounter Summary ---
Author Organization [facility] Address [address] [place] [address] Care Team Providers Care Hardware Installer Name Role Phone Divina Ness MD Primary Care Provider + Encounter Details Date Type Department Care Team (Late st Contact Info) Description 10/01/2024 MyChart Message Enc [facility] Family Medicine - [place] [address] [place] [phone] Divina Ness MD [address] [place] [address] Dizziness Social History Tobacco Use Types Packs/Day Years Used Date Smoking Tobacco: Former Cigarettes 2009 Passive Smoke Exposure: Past Smokeless Tobacco: Never Alcohol Use Standard Drinks/Week Comments Never 0 (1 standard drink = 0.6 oz pur e alcohol) PHQ-2 Answer Date Recorded Patient Health Questionnaire-2 Score 0 06/24/2024 Comments No Sex and Gender Information Value Date Recorded Sex Assigned at Female 06/10/2024 11:08 AM WATER AEROBICS INSTRUCTOR Legal Sex Female 5:01 PM CDT Gender Identity Female 09/30/2024 12:20 PM CDT Sexual Orientation Not on file documented as of this encounter Progress Notes * Mariam Karimi LPN - 10/01/2024 4:46 PM CDT Letter has been entered into patient chart and she is aware to look on my chart for it. * Marivel Robison NP - 10/01/2024 4:28 PM CDT Ok to provide her a work note for today. If symptoms are not improving/worsening encourage her to follow up.Once I get a chance to look at her labs I will send her a message as well. documented in this encounter Plan of Treatment Upcoming Encounters Date Type Department Care Team (Late st Contact Info) Description 07/07/2025 10:30 AM WATER AEROBICS INSTRUCTOR Office Visit [facility] Family Medicine - [place] [address] [place], [place] [phone] Divina Ness MD [address] [place], [place] [phone] documented as of this encounter Visit Diagnoses Not on filedocumented in this encounter Additional Health Concerns Infection Onset Date Last Indicated Resolved Time MRSA 12/26/2016 12/26/2016 documented as of this encounter Care Teams Hardware Installer Relationship Specialty Start Date End Date Divina Ness MD [address] [place], [place] [address] PCP - General FAMILY PRACTICE 03/11/24 documented as of this encounter
--- OUTSIDE RECORDS SUMMARY | 2024-10-01 16:52 | XMS_ITS | Clinical Summary ---
Author Organization [facility] Address [address] [place] [address] Phone Care Team Providers Care Complaint Adjuster Name Role Phone Raya Hare APRN, NATALEE Primary Care Provider + Sean Nichole MD Unavailable [phone] Allergies Active Allergy Reactions Criticality Noted Date Comments Tramadol Unknown 06/08/2015 Medications amLODIPine (NORVASC) 10 MG Tablet Take 10 mg by mouth. 07/23/2018 Active Metoprolol Succinate 50 MG Capsule ER 24 Hour Sprinkle Take by mouth. Active ferrous sulfate 325 (65 Fe) MG Tablet Take 1 Tab by mouth daily. 30 Tab 2 08/28/2018 Active Active Problems Problem Noted Date Diagnosed Date Iron deficiency anemia due to chronic blood loss 08/24/2018 Family History Medical History Relation Name Comments Diabetes Father Diabetes Maternal Grandmother Relation Name Status Comments Father Maternal Grandmother Mother Social History Tobacco Use Types Packs/Day Years Used Date Smoking Tobacco: Former Smokeless Tobacco: Never Alcohol Use Standard Drinks/Week Comments Never 0 (1 standard drink = 0.6 oz pur e alcohol) AUDIT-C Answer Date Recorded Frequency of Alcohol Consumption Never 08/24/2018 Average Number of Drinks Not on file 019 Frequency of Binge Drinking Not on file 09/2018 PHQ-2 Answer Date Recorded PHQ-2 Score 0 2019 Comments Unknown Sex and Gender Information Value Date Recorded Sex Assigned at Not on file Legal Sex Female 8:54 AM CDT Gender Identity Not on file Sexual Orientation Not on file Last Filed Vital Signs Vital Sign Reading Time Taken Comments Blood Pressure 130/78 08/24/2018 9:16 AM CDT Pulse 70 08/24/2018 9:16 AM CDT Temperature 36.6 C (97.8 F) 08/24/2018 9:16 AM CDT Respiratory Rate 20 08/24/2018 9:16 AM CDT Oxygen Saturation 98% 08/24/2018 9:16 AM CDT Inhaled Oxygen Concentration - - Weight 126.2 kg (278 lb 3.2 oz) 08/24/2018 9:16 AM CDT Height 167.6 cm (5' 6 ) 08/24/2018 9:16 AM CDT Body Mass Index 44.9 08/24/2018 9:16 AM CDT Plan of Treatment Health Maintenance Due Date Last Done Comments Hepatitis C Virus (HCV) Screening 1977 TdaP Immunization 1977 Hepatitis B Immunization (1 of 3 - 19+ 3-dose series) 02/01/1996 Colonoscopy 2022 Colorectal Cancer Screening 2022 Influenza Immunization (#1) 01/21/202403/23, 03/23/2020, 03/18/2019, Additional history exists SARS-COV-2 Immunization ( - 2023- season) 2024 03/08/2021, 02/15/2021 Respiratory Syncytial Virus (RSV) Immunization (Adult) (1 - 1-dose 75+ series) 02/01/2052 Meningococcal Immunization (ACWY) Aged Out No longer eligible based on patient's age to complete this topic Pneumococcal Immunization Combined Aged Out No longer eligible based on patient's age to complete this topic Rotavirus Immunization Aged Out No lo nger eligible based on patient's age to complete this topic Insurance MEDICAID [place] Care Teams Complaint Adjuster Relationship Specialty Start Date End Date Raya Hare APRN, CARDIOLOGY SPECIALIST [address] [place] [address] PCP - General Family Medicine 08/30/21 Sean Nichole MD [address] [place] [phone] Consulting Physician Oncology 08/30/21
--- OUTSIDE RECORDS SUMMARY | 2024-10-01 16:52 | XMS_ITS | Referral Summary ---
Author Organization [facility] Address [address] [place] [address] Care Team Providers Care Hat And Cap Opener Name Role Phone Raya Hare PATIENT SAFETY OFFICER Primary Care Provider [phone] Elmer Miranda DO Unavailable [phone] Leni Goldstein PATIENT SAFETY OFFICER Unavailable [phone] Allergies Active Allergy Reactions Criticality Noted Date Comments Tramadol Nausea & Vomiting Low 09/22/2021 Medications albuterol 2.5 mg /3 mL (0.083 %) nebulizer solution USE 1 VIAL VIA NEBULIZER EVERY 6 HOURS NEEDED FOR WHEEZING 2 Active albuterol HFA (PROVENTIL HFA,VENTOLIN HFA,PROAIR HFA) 90 mcg/actuation inhaler Inhale 1-2 puffs 6 Active amLODIPine (NORVASC) 5 mg tablet 2 Active ferrous sulfate 325 mg (65 mg of elemental iron) tablet Take 325 mg by mouth daily 9 Active Aerochamber Plus Flow-Vu spacer USE WITH ALBUTEROL INHALER 2 Active ascorbic acid (VITAMIN C) 500 mg tablet,chewable Acti ve Active Problems Problem Noted Date Diagnosed Date Anemia 09/13/2021 Immunizations Immunization Administration Dates Next Due Hep A, Adult 03/18/2019 Influenza, Quadrivalent, Spl it, Preservative Free, Intramuscular 04/14/2021,03/23/2020,03/18/2019,04/16,05/01/2017,04/11/2016 Influenza, Unspecified 05/18/2015 PPD TEST 11/28/2007 Tetanus toxoid, adsorbed 01/05/2007 Social History Tobacco Use Types Packs/Day Years Used Date Smoking Tobacco: Former Smokeless Tobacco: Never AUDIT-C Answer Date Recorded Q1: How often do you have a drink containing alc ohol? Never 09/22/2021 Average Number of Drinks Not on file 022 Frequency of Binge Drinking Not on file 08/2021 Personal Safety Answer Date Recorded Getting School Help Needed Not on file 08/04 Comments Unknown Sex and Gender Information Value Date Recorded Sex Assigned at Not on file Legal Sex Female 11:37 PM WOOD TECHNOLOGIST Gender Identity Not on file Sexual Orientation Not on file Last Filed Vital Signs Vital Sign Reading Time Taken Comments Blood Pressure 150/98 02/01/2022 8:14 AM CDT Pulse 56 02/01/2022 8:14 AM CDT Temperature 36.6 C (97.9 F) 02/01/2022 8:14 AM CDT Respiratory Rate 18 02/01/2022 8:14 AM CDT Oxygen Saturation 100% 02/01/2022 8:14 AM CDT Inhaled Oxygen Concentration - - Weight 130.7 kg (288 lb 3.2 oz) 02/01/2022 8:14 AM CDT Height 167.6 cm (5' 6 ) 02/01/2022 8:14 AM CDT Body Mass Index 46.52 02/01/2022 8:14 AM CDT Plan of Treatment Not on file Insurance CIGNA CIGNA OPEN ACCESS Care Teams Hat And Cap Opener Relationship Specialty Start Date End Date [place] [address] [place] [address] PCP - General Nurse Practitioner 08/12/21 Elmer [place] [address] [place] [address] 08/12/21 Leni Goldstein NP [address] [place] [address] Nurse Practitioner Medical Oncology 09/02/22
--- OUTSIDE RECORDS SUMMARY | 2024-10-01 16:52 | XMS_ITS | Encounter Summary ---
Author Organization [facility] Address [address] [place] [address] Care Team Providers Care Carton And Can Supply Supervisor Name Role Phone Raya Hare DRAW TENDER Primary Care Provider Divina Alicea MD Primary Care Provider + Encounter Details Date Type Department Care Team (Late st Contact Info) Description 10/20/2021 [employer] Message Enc [facility] Family Medicine [address] [address] [facility] Provider Lab results Social History Tobacco Use Types Packs/Day Years [...] Sex Assigned at Female 06/10/2024 11:08 AM PUBLIC SAFETY POLICE Legal Sex Female 5:01 PM CDT Gender Identity Female 09/30/2024 12:20 PM CDT Sexual Orientation Not on file documented as of this encounter Plan of Treatment Upcoming Encounters Date Type Department Care Team (Late st Contact Info) Description 07/07/2025 10:30 AM PUBLIC SAFETY POLICE Office Visit [facility] Family Medicine [facility] [address] [place] [phone] Divina Ness MD [address] [place] [address] documented as of this encounter Visit Diagnoses Not on filedocumented in this encounter Additional Health Concerns Infection Onset Date Last Indicated Resolved Time 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
--- OUTSIDE RECORDS SUMMARY | 2024-10-01 16:52 | XMS_ITS | Encounter Summary ---
Author Organization [facility] Address [address] [place] [address] Care Team Providers Care Air Route Traffic Controller Name Role Phone Raya Hare FLAG CAR DRIVER Primary Care Provider Divina Alicea MD Primary Care Provider + Encounter Details Date Type Department Care Team (Late st Contact Info) Description 02/24/2023 MyChart Message Enc [facility] Medical [facility] Family Medicine [address] [address] [place], [facility] Provider Tetanus Social History Tobacco Use Types Packs/Day Years Used Date Smoking Tobacco: Former Cigarettes Q uit: 05/22/2009 Smokeless Tobacco: Never Alcohol Use Standard Drinks/Week Comments Not Currently 0 (1 standard drink = 0.6 oz pur e alcohol) PHQ-2 Answer Date Recorded Patient Health Questionnaire-2 Score 1 02/20/2023 Comments No Sex and Gender Information Value Date Recorded Sex Assigned at Female 06/10/2024 11:08 AM INFECTION PREVENTION PRACTITIONER Legal Sex Female 5:01 PM CDT Gender Identity Female 09/30/2024 12:20 PM CDT Sexual Orientation Not on file documented as of this encounter Plan of Treatment Upcoming Encounters Date Type Department Care Team (Late st Contact Info) Description 07/07/2025 10:30 AM INFECTION PREVENTION PRACTITIONER Office Visit [facility] Family Medicine [facility] [address] [place] [phone] Divina Ness MD [address] [place], [place] [phone] documented as of this encounter Visit Diagnoses Not on filedocumented in this encounter Additional Health Concerns Infection Onset Date Last Indicated Resolved Time 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
--- OUTSIDE RECORDS SUMMARY | 2024-10-01 16:52 | XMS_ITS | Clinical Summary ---
Author Organization [facility] Address [facility] access hospital[address] [place] [address] Care Team Providers Care Auto Transport Driver Name Role Phone Divina Bartholomew MD Primary Care Provider + Allergies Active Allergy Reactions Criticality Noted Date Comments Tramadol Unknown,Nausea and Vomiting Low 06/08/19 16 Medications clonazePAM (KLONOPIN) 0.5 MG tabletIndications :Panic disorder TAKE 1 TABLET(0.5 MG) BY MOUTH THREE TIMES DAILY NEEDED FOR ANXIETY 10 tablet 08/04/19 24 Active Additional Information Patient taking differently: (No dose reported), Oral 3 times daily PRN,FOR ANXIETY prn, Reported on 09/30/2024 PARoxetine (PAXIL) 30 MG tabletIndications :Panic disorder Take 1 tablet (30 mg total) by mouth every morning. 90 tablet 08/04/19 24 Active lidocaine (LIDODERM) 5 %Indications:Acut e right-sided low back pain with bilateral sciatica APPLY ONE PATCH ON THE SKIN DAILY, REMOVE AND DISCARD PATCH WITHIN 12 HOURS OR DIRECTED BY MD 30 patch 09/05/19 24 Active albuterol sulfate HFA 108 (90 Base) MCG/ACT inhalerIndication s:Moderate persistent asthma without complication (HHS/HCC) Inhale 2 puffs into the lungs every 6 (six) hours as needed for Wheezing. May substitute any form of albuterol. 18 g 3 03/11/20 24 Active albuterol (PROVENTIL) (2.5 MG/3ML) 0.083% nebulizer solutionIndicatio ns:Moderate persistent asthma without complication (HHS/HCC) Take 3 mLs (2.5 mg total) by nebulization every 6 (six) hours as needed for Wheezing. 360 mL 1 06/24/19 25 Active cyclobenzaprine (FLEXERIL) 10 MG tabletIndications :Lumbar radiculopathy Take 1 tablet (10 mg total) by mouth 3 (three) times daily as needed for Muscle Spasms. 30 tablet 2 06/24/19 25 Active meloxicam (MOBIC) 7.5 MG tabletIndications :Lumbar radiculopathy Take 1 tablet (7.5 mg total) by mouth daily. 30 tablet 1 06/24/19 25 Active amLODIPine (NORVASC) 5 MG tabletIndications :Essential hypertension Take 1 tablet (5 mg total) by mouth daily. 90 tablet 1 06/24/19 25 Active fluticasone-salme terol (ADVAIR DISKUS) 500-50 MCG/ACT inhalerIndication s:Moderate persistent asthma without complication (HHS/HCC) Inhale 1 puff into the lungs 2 (two) times daily. 180 each 3 06/24/19 25 Active meclizine (ANTIVERT) 12.5 MG tabletIndications :Dizziness Take 1 tablet (12.5 mg total) by mouth 3 (three) times daily as needed. 30 tablet 10/01/19 25 025 Active Active Problems Problem Noted Date Diagnosed Date Iron deficiency anemia tyron lizarraga to inadequate dietary iron intake 03/25/2024 Lumbar radiculopathy 03/11/2024 Overview (06/24/2024): Patient notes back issues since she moved in October 2023. Pain is in the lumbar region and radiates posteriorly on the right especially to her knee but also does extend into the heel of her right foot. She notes a numb tingly sensation in the ankle which is particularly bothersome. She was not able to pursue physical therapy due to cost. She reports that she noted some improvement with meloxicam and cyclobenzaprine. Assessment & Plan (06/24/2024 12:10 PM AUDIT OFFICER): Chronic. Continue combination meloxicam and cyclobenzaprine which did seem to help symptoms. Assessment & Plan (03/11/2024 10:44 AM CDT): Now chronic and not controlled. Trial gabapentin and provided titration schedule. Encouraged her to find physical therapy exercises online if she is not able to do them in person. Request an update if she would like to see a enrollment specialist or pain management. Essential hypertension 03/29/2019 Overview (03/11/2024): Patient takes amlodipine. She does not check her blood pressure at home. Assessment & Plan (03/11/2024 10:42 AM CDT): Chronic and controlled. Check BMP. Continue amlodipine. Panic attack 03/29/2019 Iron deficiency anemia due to chronic blood loss 08/24/2018 Overview (06/24/2024): Due to menstrual cycle. Heavy bleeding. Has completed iron transfusions without repeat CBC since that time. Did not tolerate oral iron in the past. Has not met with PIPE INSTALLER yet to discuss abnormal uterine bleeding. Assessment & Plan (06/24/2024 12:08 PM AUDIT OFFICER): Will check CBC and iron panel to confirm she is repleted. Strongly advised her to establish with PIPE INSTALLER to discuss options for abnormal uterine bleeding. Referral entered this time. Assessment & Plan (03/11/2024 10:42 AM CDT): Will repeat CBC and iron panel to determine if she requires an iron transfusion. Encouraged her to schedule with PIPE INSTALLER to consider a Mirena IUD to manage bleeding and prevent iron deficiency anemia. Moderate persistent asthma (HHS/HCC) 06/30/2017 Overview (06/24/2024): Previously lived in a house with mold. Now that she has moved, symptoms have improved. She does have a nebulizer at home. Illness does worsen symptoms. She had recent illness. She feels like her lungs have not improved. She does smoke marijuana daily. Assessment & Plan (06/24/2024 12:07 PM AUDIT OFFICER): Not yet controlled. Increase Advair to 500-50 mcg dose. Encouraged her to discontinue smoking marijuana. Provided refill on nebulizer solution as well. Assessment & Plan (03/11/2024 10:42 AM CDT): Chronic and controlled. Recommend continued albuterol as needed but will start Advair which she can use at the first sign of symptoms should she become ill. Menometrorrhagia 06/08/2015 Encounters Date Type Department Care Team Description 10/01/2024 Results Follow-Up [address] [place] [address] Marivel Robison NP TSH W/REFLEX, COMPREHENSIVE METABOLIC PANEL, FERRITIN, CBC W/DIFF AUTOMATED 10/01/2024 MyChart Message Enc [address] [place] [address] Divina Bartholomew MD Dizziness 10/01/2024 MyChart Message Enc [address] [place] [address] Marivel Robison NP Dizziness 09/30/2024 12:20 PM CDT Office Visit [address] [place] [address] Marivel Robison NP Dizziness/lightheaded ness (Patient presents with c/o dizziness and lightheaded x Monday) 09/30/2024 Travel from Last 3 Months Immunizations Immunization Administration Dates Next Due Fluzone 6 Months+ Quad (0.5 mL Prefilled Syringe) 03/23/2020,03/18/2019,04/16/2018 Hepatitis A (Havrix [address]) 03/18/2019 Influenza (Generic) 03/22/2024,04/11/2016,2014 Influenza Adult (Generic) 02/06/2023,10/2021,04/14/2021,2016,05/01/2017,04/11/2016 Tdap (Adacel) 06/24/2024 Tetanus Toxoid Inj 01/05/2007 Family History Medical History Relation Comments Heart Disease Brother Mental Health Daughter 1 No Known Problems Daughter 2 No Known Problems Daughter 3 Stroke Father Breast Cancer Maternal Aunt Scleroderma Mother No Known Problems Sister Relation Status Comments Brother Daughter 1 Alive Daughter 2 Alive Daughter 3 Alive Father Maternal Aunt Alive Mother Sister Alive Social History Tobacco Use Types Packs/Day Years [...] Sex Assigned at Female 06/10/2024 11:08 AM AUDIT OFFICER Legal Sex Female 5:01 PM CDT Gender Identity Female 09/30/2024 12:20 PM CDT Sexual Orientation Not on file Last Filed [...] (285 lb) 09/30/2024 12:21 PM CDT Height 167.6 cm (5' 6 ) 06/24/2024 10:40 AM AUDIT OFFICER Body Mass Index 46 06/24/2024 10:40 AM AUDIT OFFICER Plan of Treatment Upcoming Encounters Date Type Department Care Team (Late st Contact Info) Description 07/07/2025 10:30 AM AUDIT OFFICER Office Visit [facility] - [place] [address] [place] [phone] Divina Bartholomew MD [address] [place] [id number] Health Maintenance Due Date Last Done Comments Hepatitis B Vaccines (1 of 3 - 19+ 3-dose series) 02/01/1996 Pneumococcal Vaccine: Pediatrics (0 to 5 Years) and At-Risk Patients (6 to 49 Years) (1 of 2 - PCV) 02/01/1996 Cervical Cancer Screening Pap with HPV Testing (Age 30 to 64) Every 5 Years 2007 Annual Physical 06/24/2025 06/24/2024, 0205/2023, 02/20/2023 Colorectal Cancer Screening FIT-DNA (3 Years) 03/08/2026 03/08/2023, 03/08/2023 Mammogram Screening 05/01/2026 05/01/2024 Cervical Cancer Screening Pap Smear (Age 30 to 64) Every 3 Years 06/22/2028 06/22/2023 Cervical Cancer Screening with HPV 06/22/2028 DTaP, Tdap and Td Vaccines (2 - Td or Tdap) 06/24/2034 06/24/2024, 01/05/2007 Hepatitis C Completed 02/20/2023 COVID-19 Vaccine Completed 03/22/2024, , 03/08/2021, Additional history exists PHQ-2 (Physician [place]) Completed 06/24/2024 Meningococcal B Vaccine Aged Out No l onger eligible based on patient's age to complete this topic Meningococcal Vaccine Aged Out No nikolas gilberto eligible based on patient's age to complete this topic RSV Immunizations Under 20 Months Aged Out No longer eligible based on patient's age to complete this topic Procedures Procedure Name Priority Date/Time Associated Diagnosis Comments COLLECTION VENOUS BLOOD VENIPUNCTURE Routine 09/30/2024 12:52 PM CDT Lightheadedness CBC W/DIFF AUTOMATED Routine 09/30/2024 12:52 PM CDT Dizziness Lightheadedness Anemia, unspecified type FERRITIN Routine 09/30/2024 12:52 PM CDT Dizziness Lightheadedness Anemia, unspecified type COMPREHENSIVE METABOLIC PANEL Routine 09/30/2024 12:52 PM CDT Dizziness Lightheadedness TSH W/REFLEX Routine 09/30/2024 12:52 PM CDT Dizziness Lightheadedness MG SCREENING W FAUSTINO ONEL DIGI Routine 05/01/2024 4:08 PM AUDIT OFFICER Screening mammogram for breast cancer CYTOPATH CERV/VAG THIN LAYER Routine 06/22/2023 4:00 PM AUDIT OFFICER COLOGUARD (EXACT SCIENCE) Routine 03/08/2023 4:47 PM CDT Screening for colon cancer HEPATITIS C ANTIBODY Routine 02/20/2023 12:58 PM CDT Encounter for hepatitis C screening test for low risk patient Health maintenance examination from Last 3 Months or Most Recently Relevant to Health Maintenance Results * TSH W/REFLEX (09/30/2024 12:52 PM CDT) TSH 0.573 0.358 - 3.740 uIU/ML 10/01/2024 10:53 AM CDT [facility] 09/30/2024 12:5 2 PM CDT us Marivel Robison [facility] Final Res ult [facility] [address] [place] [address], * (ABNORMAL) COMPREHENSIVE METABOLIC PANEL (09/30/2024 12:52 PM CDT) SODIUM S/P/B 140 136 - 145 MMOL/L 10/01/2024 10:53 AM CDT [facility] POTASSIUM S/P/B 4.7 3.5 - 5.1 MMOL/L 10/01/2024 10:53 AM CDT [facility] CHLORIDE S/P/B 105 98 - 107 MMOL/L 10/01/2024 10:53 AM CDT [facility] CO2 28.3 21 - 32 MMOL/L 10/01/2024 10:53 AM CDT [facility] GLUCOSE 86 70 - 99 MG/DL 10/01/2024 10:53 AM CDT [facility] BUN 20(H) 7 - 18 MG/DL 10/01/2024 10:53 AM CDT [facility] CREATININE S/P/B 0.98 0.55 - 1.02 MG/DL 10/01/2024 10:53 AM [facility] CALCIUM S/P/B 9.1 8.4 - 10.5 MG/DL 10/01/2024 10:53 AM [facility] BILIRUBIN TOTAL S/P/B 0.2 0.2 - 1.0 MG/DL 10/01/2024 10:53 AM [facility] ALKALINE PHOSPHATASE S/P/B 92 39 - 100 U/L 10/01/2024 10:53 AM T [facility] AST 12(L) 15 - 37 U/L 10/01/2024 10:53 AM [facility] ALT 16 14 - 59 U/L 10/01/2024 10:53 AM [facility] TOTAL PROTEIN S/P/B 6.8 6.4 - 8.2 G/DL 10/01/2024 10:53 AM [facility] ALBUMIN S/P/B 3.5 3.4 - 5.0 G/DL 10/01/2024 10:53 AM [facility] ANION GAP 6.7 5 - 15 MMOL/L 10/01/2024 10:53 AM [facility] Comment:REFERENCE RANGE NOT ESTABLISHED OSMOLALITY (CALC) 292 MOSM/KG 025 10:53 AM [facility] Comment:REFERENCE RANGE NOT ESTABLISHED GFR ESTIMATE 72(L) >90 ML/MIN/1. 73 M2 10/01/2024 10:53 AM [facility] GFR NOTES GFR REFERENCE S: 10/01/2024 10:53 AM [facility] Comment: THE ESTIMATED GFR IS CALCULATED USING [...] ml/min/1.73 m2 09/30/2024 12:5 2 PM CDT us Marivel Robison [facility] Final Res ult [facility] [address] [place] [address], * (ABNORMAL) CBC W/DIFF AUTOMATED (09/30/2024 12:52 PM CDT) WBC 6.34 4.00 - 10.80 x10'3/uL 09/30/2024 7:50 PM CDT [facility] RBC 3.49(L) 4.10 - 5.40 x10'6/uL 09/30/2024 7:50 PM CDT [facility] HGB 10.6(L) 12.0 - 16.0 G/DL 09/30/2024 7:50 PM CDT [facility] HCT 33.8(L) 36.0 - 47.0 % 09/30/2024 7:50 PM CDT [facility] MCV 96.8 78.0 - 100.0 FL 09/30/2024 7:50 PM CDT [facility] MCH 30.4 27.0 - 31.0 PG 09/30/2024 7:50 PM CDT [facility] MCHC 31.4(L) 33.0 - 36.0 G/DL 09/30/2024 7:50 PM CDT [facility] RDW 14.6(H) 11.5 - 14.5 % 09/30/2024 7:50 PM CDT [facility] PLT 407(H) 150 - 350 x10'3/uL 09/30/2024 7:50 PM [address] [facility] MPV 10.8(H) 7.4 - 10.4 FL 09/30/2024 7:50 PM CDT [facility] DIFFERENTIAL TYPE AUTOMATED DIFFERENTIAL 09/30/2024 7:50 PM [address] [facility] NEUTROPHILS % 65.6 % 09/30/2024 7:50 PM CDT [facility] LYMPHOCYTES % 24.6 % 09/30/2024 7:50 PM CDT [facility] MONOCYTES % 6.8 % 09/30/2024 7:50 PM CDT [facility] EOSINOPHILS % 2.7 % 09/30/2024 7:50 PM CDT [facility] BASOPHILS % 0.3 % 09/30/2024 7:50 PM CD[address] [facility] IMMATURE GRANS % 0.0 % 09/30/2024 7:50 PM CDT [facility] ABS. NEUTROPHILS 4.16 1.60 - 8.30 x10'3/uL 09/30/2024 7:50 PM CDT [facility] ABS. LYMPHOCYTES 1.56 0.80 - 4.70 x10'3/uL 09/30/2024 7:50 PM CDT [facility] ABS. MONOCYTES 0.43 0.00 - 1.50 x10'3/uL 09/30/2024 7:50 PM CDT [facility] ABS. EOSINOPHILS 0.17 0.00 - 0.40 x10'3/uL 09/30/2024 7:50 PM CDT [facility] ABS. BASOPHILS 0.02 0.00 - 0.20 x10'3/uL 09/30/2024 7:50 PM [address] [facility] ABS. IMMATURE GRANULOCYTES 0.00 0.00 - 0.03 x10'3/uL 09/30/2024 7:50 PM CDT [facility] 09/30/2024 12:5 2 PM CDT Marivel Robison [facility] Final Res ult Performing Organization Address City/[facility]/ZIP Co de Phone Number [facility] [address] [place] [address], [place] [phone] * FERRITIN (09/30/2024 12:52 PM CDT) FERRITIN 39.0 8 - 252 NG/ML 10/01/2024 10:53 AM CDT [facility] 09/30/2024 12:5 2 PM CDT Marivel Robison [facility] Final Res ult Performing Organization Address [facility] Co de Phone Number [place] [id number] [place] [address], [place] [phone] * MG SCREENING W FAUSTINO ONEL DIGI (05/01/2024 4:08 PM AUDIT OFFICER) Anatomical Region Laterality Modality Breast Bilateral Mammography 05/01/2024 5:30 PM AUDIT OFFICER Impressions 05/01/2024 5:34 PM AUDIT OFFICER ===== IMPRESSION: ===== 1. No mammographic evidence of malignancy Assessment: ACR BI-RADS 2 - BENIGN FINDING(S) Recommendation: 1:Routine Screening Bilateral Comments: Ordered By: DIVINA BARTHOLOMEW Interpreted By: Carlos Bynum, 05/01/2024 5:30 PM Narrative 05/01/2024 5:34 PM AUDIT OFFICER [facility] [address] [place] [address] EXAMINATION: Digital bilateral screening mammogram with 3-D tomosynthesis EXAM DATE/TIME: 05/01/2024 3:45 PM REASON FOR EXAM: Routine screening Breast carcinoma in maternal aunt at age 52 COMPARISON: Baseline Technique: Digital screening mammography of both breasts was performed in addition to 3-D Tomosynthesis technique. This study was read with the assistance of a computer-aided detection system. Tissue density: There are scattered areas of fibroglandular density. Findings: There is no focal asymmetry, dominant mass lesion, area of skin thickening, or cluster of suspicious appearing calcifications in either breast to suggest malignancy. Multiple bilateral benign nodularity. us Divina Bartholomew MD MAMMO Final Re sult * Cytopath Cerv/Vag Thin Layer (06/22/2023 4:00 PM AUDIT OFFICER) CLINICAL INFORMATION: WELL WOMAN EXAM [place] Clinical Information: 06/11/23 REGULAR [place] Date of Last Pap NONE GIVEN [place] Previous Biopsy? NONE GIVEN [place] SOURCE (QST) Cervix, Endocervix [place] STATEMENT OF ADEQUACY: [place] Comment: Satisfactory for evaluation. Endocervical/transformation zone component present. PAP INTERPRETATION/RES ULTS Cytology Results: Negative for intraepithelial lesion or malignancy. [facility] [place] COMMENT: This Pap test has been evaluated with computer assisted technology. [facility] [place] ITEM REPAIR MANAGER [facility] [place] Comment: BES, CT(ASCP) CT screening location: [place] [address] [address] [address] COMMENT: [place] Comment: EXPLANATORY NOTE: The Pap is a screening test for cervical cancer. It is not a diagnostic test and is subject to false negative and false positive results. It is most reliable when a satisfactory sample, regularly obtained, is submitted with relevant clinical findings and history, and when the Pap result is evaluated along with historic and current clinical information. HPV INTERMEDIATE/HIGH RISK Not Detected NOT DETECTED [facility] [place] Comment: Not Detected High Risk HPV types (16,18,31,33,35,39,45,51,52, 56,58,59,66,68) were not detected. Other HPV types which cause anogenital lesions may be present. The significance of the other types of HPV in malignant processes has not been established. Methodology: Real Time PCR 06/22/2023 4:00 PM AUDIT OFFICER 06/26/2023 9:53 AM AUDIT OFFICER Narrative [facility] - 06/29/2023 3:09 PM AUDIT OFFICER FASTING: UNKNOWN Resulting Agency Comment Performing Organization Information: Site ID: [id number] Name: [facility] Address: [address] [place] [address] Director: Alvaro Casillas M.D.,PhD Site ID: [id number] [facility]: [facility] Address: [address] [place] [id number] Director: Marisela Turner Raya Hare [facility] [employer] PATHOLOG[facility]/CYTOLOGY ORDERABLES F inal Result [facility] [address], [facility] [address] , * COLOGUARD (EXACT SCIENCE) (03/08/2023 4:47 PM CDT) COLOGUARD RESULT Negative Negative [employer] (CLIA #:[id number]) Comment: NEGATIVE TEST RESULT. A negative Cologuard result indicates a low likelihood that a colorectal cancer (CRC) or advanced adenoma (adenomatous polyps with more advanced pre-malignant features) is present. The chance that a person with a negative Cologuard test has a colorectal cancer is less than 1 in 1500 (negative predictive value >99.9%) or has an advanced adenoma is less than 5.3% (negative predictive value 94.7%). These data are based on a prospective cross-sectional study of 10,000 individuals at average risk for colorectal cancer who were screened with both Cologuard and colonoscopy. (Hugh Diaz al, N Engl J Med 2014;370(87):7626-1357) The normal value (reference range) for this assay is negative. COLOGUARD RE-SCREENING RECOMMENDATION: Periodic colorectal cancer screening is an important part of preventive healthcare for asymptomatic individuals at average risk for colorectal cancer. Following a negative Cologuard result, the [place] [employer] Society and U.S. Multi-Society Task Force screening guidelines recommend a Cologuard re-screening interval of 3 years. References: [place] [employer] Guideline for Colorectal Cancer Screening: https://www.cancer.org/cancer/xdpfy-wohiqg-yrpnqa/dqkjegbjt-zuolzesoj-vrxvbgz/ac s-rec ommendations.html.; Matthew DK, Yana [place], Joan GuadalupeK, Colorectal Cancer Screening: Recommendations for Physicians and Patients from the U.S. Multi-Society Task Force on Colorectal Cancer Screening , Am J Gastroenterology 2017; 112:8224-1321. TEST DESCRIPTION: Composite algorithmic analysis of stool DNA-biomarkers with hemoglobin immunoassay. Quantitative values of individual biomarkers are not reportable and are not associated with individual biomarker result reference ranges. Cologuard is intended for colorectal cancer screening of adults of either sex, 45 years or older, who are at average-risk for colorectal cancer (CRC). Cologuard has been approved for use by the U.S. FDA. The performance of Cologuard was established in a cross sectional study of average-risk adults aged 50-84. Cologuard performance in patients ages 45 to 49 years was estimated by sub-group analysis of near-age groups. Colonoscopies performed for a positive result may find as the most clinically significant lesion: colorectal cancer [4.0%], advanced adenoma (including sessile serrated polyps greater than or equal to 1cm diameter) [20%] or non- advanced adenoma [31%]; or no colorectal neoplasia [45%]. These estimates are derived from a prospective cross-sectional screening study of 10,000 individuals at average risk for colorectal cancer who were screened with both Cologuard and colonoscopy. (Hugh Corona, N Engl J Med 2014;370(14):8705-6554.) Cologuard may produce a false negative or false positive result (no colorectal cancer or precancerous polyp present at colonoscopy follow up). A negative Cologuard test result does not guarantee the absence of CRC or advanced adenoma (pre-cancer). The current Cologuard screening interval is every 3 years. ([place] [employer] and U.S. Multi-Society Task Force). Cologuard performance data in a 10,000 patient pivotal study using colonoscopy as the reference method can be accessed at the following location: www.Bottle.O-film/results. Additional description of the Cologuard test process, warnings and precautions can be found at www.cologuard.com. STOOL STOOL SPECIMEN / Unknown 03/08/2023 4:47 PM CDT 03/09/2023 4:25 PM CDT Raya Hare [employer] [employer] BODY FLUIDS AND STOOLS ORDERABL ES Final Result Performing Organization Address [facility] Co de Phone Number [employer], [facility] [address] [phone], [employer] (CLIA #:[id number]) [address] [place] [address] * HEPATITIS C ANTIBODY ([facility] ONLY) (02/20/2023 12:58 PM CDT) HEPATITIS C AB NON-REACTI VE NON-REACT AN 02/20/2023 10:22 PM CDT [facility] Comment: ANTIBODIES TO HCV NOT DETECTED. DOES NOT EXCLUDE THE POSSIBILITY OF EXPOSURE TO HCV. 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
--- OUTSIDE RECORDS SUMMARY | 2024-10-01 16:52 | XMS_ITS | Encounter Summary ---
Author Organization [facility] Address [address] [place] [address] Care Team Providers Care Integration Manager Name Role Phone Raya Hare NP Primary Care Provider Divina Alicea MD Primary Care Provider + Encounter Details Date Type Department Care Team (Late st Contact Info) Description 08/10/2021 HMP Communications Message Enc [facility] Family Medicine - [address] [address] Shahana, [facility] Provider Nebulizer kit Social History Tobacco Use Types Packs/Day Years [...] Sex Assigned at Female 06/10/2024 11:08 AM LIVESTOCK LABORER Legal Sex Female 5:01 PM CDT Gender Identity Female 09/30/2024 12:20 PM CDT Sexual Orientation Not on file documented as of this encounter Progress Notes * Ricky Moore RN - 08/10/2021 2:49 PM CDT Pt is scheduled on 08/23/2021. * Vijay Sims MA - 08/10/2021 12:04 PM CDT Approve or deny. Last visit with MYCHART PROVIDER in FAMILY PRACTICE was on: No match found. With Polo Sullivan aster 02/10/2021 Next visit with MYCHART PROVIDER in FAMILY PRACTICE is on: No match found Nothing scheduled at this time. 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
--- OUTSIDE RECORDS SUMMARY | 2024-10-01 16:52 | XMS_ITS | Encounter Summary ---
Author Organization [facility] Address [address] [place] [address] Care Team Providers Care Conciliation Court Judge Name Role Phone Divina Ness MD Primary Care Provider + Encounter Details Date Type Department Care Team (Late st Contact Info) Description 03/13/2024 Hospital Orders Only [address] [phone] Divina Ness MD [address] [place] [address] Social History Tobacco Use Types Packs/Day Years Used Date Smoking Tobacco: Former Cigarettes Q uit: 05/22/2009 Passive Smoke Exposure: Past Smokeless Tobacco: Never Alcohol Use Standard Drinks/Week Comments Not Currently 0 (1 standard drink = 0.6 oz pur e alcohol) PHQ-2 Answer Date Recorded Patient Health Questionnaire-2 Score 0 03/11/2024 Comments No Sex and Gender Information Value Date Recorded Sex Assigned at Female 06/10/2024 11:08 AM NURSING HOME ASSISTANT Legal Sex Female 5:01 PM CDT Gender Identity Female 09/30/2024 12:20 PM CDT Sexual Orientation Not on file documented as of this encounter Plan of Treatment Upcoming Encounters Date Type Department Care Team (Late st Contact Info) Description 07/07/2025 10:30 AM NURSING HOME ASSISTANT Office Visit [address] [address] Divina Ness MD [address] [place] [address] documented as of this encounter Visit Diagnoses Not on filedocumented in this encounter Additional Health Concerns Infection Onset Date Last Indicated Resolved Time 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
--- OUTSIDE RECORDS SUMMARY | 2024-10-01 16:52 | XMS_ITS | Clinical Summary ---
Author Organization [facility] Address [address] [place] [address] Care Team Providers Care Mimeographer Name Role Phone Unavailable Primary Care Provider Unavailabl e Source Comments [facility],non-owned Affiliates and Associated Physician Practices is amultiple site organization consisting of ambulatory clinics and hospital sitesin [place], [place], [place] and [place]. This disclosure is being madepursuant to the Care Everywhere program and may not contain all information available regarding this patient. Last updated 18.[facility] Allergies No known active allergies Medications * Be aware that medications may not be up to date on this document. Alwaysverify current medications with the patient. olmesartan (BENICAR) 20 MG tablet Take by mouth daily. Active amlodipine (NORVASC) 10 MG tablet Take by mouth daily. Active levonorgestrel-e thinyl estradiol (SEASONIQUE) 0.15-0.03 &0.01 MG tablet Take by mouth daily. Active Social History Tobacco Use Types Packs/Day Years Used Date Smoking Tobacco: Never Assessed Comments Unknown Sex and Gender Information Value Date Recorded Sex Assigned at Not on file Legal Sex Female 8:47 AM COMMUNICATIONS OFFICER Gender Identity Not on file Sexual Orientation Not on file Last Filed Vital Signs Vital Sign Reading Time Taken Comments Blood Pressure - - Pulse - - Temperature - - Respiratory Rate - - Oxygen Saturation - - Inhaled Oxygen Concentration - - Weight 98.4 kg (217 lb) 09/11/2009 7:50 PM CDT Height - - Body Mass Index - - Plan of Treatment Health Maintenance Due Date Last Done Comments LISA (AGES 45-75) - COL ON CA SCREENING 1977 COLON MONITORING 1977 COLONOSCOPY - COLON CA SCREENING 1977 CT COLONOGRAPHY - COLON CA SCREENING 1977 Colorectal Cancer Screening 1977 FIT - COLON CA SCREENING 1977 FLEX SIG - COLON CA SCREENING 1977 LIPID TESTING 1977 MAMMOGRAM 1977 HIV SCREENING 02/01/1992 HEPATITIS C SCREENING 01/27/1995 DTAP/TDAP/TD VACCINES (1 - Tdap) 02/01/1996 HEPATITIS B VACCINE (1 of 3 - 19+ 3-dose series) 02/01/1996 COVID-19 VACCINE (1 - 2023-2 5 season) 2024 DEPRESSION SCREENING 05/22/2024 INFLUENZA VACCINE (Season Ended) 2025 ZOSTER VACCINE (1 of 2) 2027 HIB VACCINE Aged Out No longer eligi ble based on patient's age to complete this topic HPV VACCINE Aged Out No longer eligi ble based on patient's age to complete this topic MENINGOCOCCAL (Group B) VACC INE SHARED DECISION-MAKING Aged Out No longer eligibl e based on patient's age to complete this topic MENINGOCOCCAL GROUPS A/C/Y/W VACCINE Aged Out No longer eligible b ased on patient's age to complete this topic PNEUMOCOCCAL VACCINE Aged Out No long er eligible based on patient's age to complete this topic
--- OUTSIDE RECORDS SUMMARY | 2024-10-01 16:52 | XMS_ITS | Encounter Summary ---
Author Organization [facility] Address [address] [place] [address] Care Team Providers Care Part Time Flexible Clerk Name Role Phone Raya Hare NP Primary Care Provider Divina Alicea MD Primary Care Provider + Encounter Details Date Type Department Care Team (Late st Contact Info) Description 08/10/2021 IMScoutingt Message Enc [facility] Family Medicine - [address] [address] Raya Hare NP Left knee January 2021 Social History Tobacco Use Types Packs/Day Years [...] Sex Assigned at Female 06/10/2024 11:08 AM YOGA TEACHER Legal Sex Female 5:01 PM CDT Gender Identity Female 09/30/2024 12:20 PM CDT Sexual Orientation Not on file documented as of this encounter Progress Notes * Raya Hare NP - 08/10/2021 4:14 PM CDT That is fine * Ricky Moore RN - 08/10/2021 2:44 PM CDT Okay for referral? It looks like Mirna saw her in Jan for this issue. 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
--- OUTSIDE RECORDS SUMMARY | 2024-10-01 16:52 | XMS_ITS | Encounter Summary ---
Author Organization [facility] Address [address] [place] [address] Care Team Providers Care Liner Machine Operator Helper Name Role Phone Divina Ness MD Primary Care Provider + Encounter Details Date Type Department Care Team (Late Contact Info) Description 10/01/2024 MyChart Message Enc [address] [place] [address] Marivel Robison NP [address] [place] [address] Dizziness Social History Tobacco Use Types [...] Sex Assigned at Female 06/10/2024 11:08 AM COMPRESSED GAS TESTER Legal Sex Female 5:01 PM CDT Gender Identity Female 09/30/2024 12:20 PM CDT Sexual Orientation Not on file documented as of this encounter Progress Notes * Anastasiia Sheikh MA - 10/01/2024 4:30 PM CDT Duplicate documented in this encounter Plan of Treatment Upcoming Encounters Date Type Department Care Team (Late Contact Info) Description 07/07/2025 10:30 AM COMPRESSED GAS TESTER Office Visit [address] [place] [address], [place] [address] Divina Ness MD [address] [place] [address] documented as of this encounter Visit Diagnoses Not on filedocumented in this encounter Additional Health Concerns Infection Onset Date Last Indicated Resolved Time MRSA 12/26/2016 12/26/2016 documented as of this encounter Care Teams Liner Machine Operator Helper Relationship Specialty Start Date End Date Divina Ness MD [address] [place] [address] PCP - General FAMILY PRACTICE 03/11/24 documented as of this encounter
--- OUTSIDE RECORDS SUMMARY | 2024-10-01 16:52 | XMS_ITS | Clinical Summary ---
Author Organization [facility] Address [address] [place] [address] Care Team Providers Care Dynamics Ax Technical Architect Name Role Phone Raya Hare NP Primary Care Provider [phone] Elmer Miranda DO Unavailable [phone] Leni Goldstein RENAL MEDICINE SPECIALIST Unavailable [phone] Allergies Active Allergy Reactions Criticality Noted Date [...] PPD TEST 11/28/2007 Tetanus toxoid, adsorbed 01/05/2007 Surgical History Surgery Date Site/Laterality Comments COLONOSCOPY SECTION 12/08/1998 SECTION 08/02/2001 SECTION 12/31/2005 Family History Medical History Relation Name Comments Aneurysm Father Scleroderma Mother Relation Name Status Comments Brother Alive Father Mother Sister Alive Social History Tobacco Use [...] on file Legal Sex Female 11:37 PM REHABILITATION ASSISTANT Gender Identity Not on file Sexual Orientation Not on file Obstetrics History Last Filed Vital Signs Vital Sign Reading [...] 02/01/2022 8:14 AM CDT Plan of Treatment Health Maintenance Due Date Last Done Comments Breast Cancer Screening-Mammogram 1977 Cervical Cancer Screening 1977 Colon Cancer Screening-Colonoscopy 1977 Depression Screening 1977 Hepatitis C Screening 1977 Hepatitis B Screening 1995 Regular Well Visit/Exam 18-64 1995 DTaP/Tdap/Td Vaccine (1 - Tdap) 01/06/2007 01/05/2007 Covid-19 Vaccine ( season) 2024 03/08/2021, 02/15/2021 Influenza Vaccine (#1) 2024 , 03/23/2020, 03/18/2019, Additional history exists Pneumococcal vaccine <65 Aged Out No longer eligible based on patient's age to complete this topic Insurance CIGNA CIGNA OPEN ACCESS Care Teams Dynamics Ax Technical Architect Relationship Specialty Start Date End Date Raya Hare, RENAL MEDICINE SPECIALIST [address] [place] [address] PCP - General Nurse Practitioner 08/12/21 Elmer Miranda DO [address] [place] [address] 08/12/21 Leni Goldstein, RENAL MEDICINE SPECIALIST [address] [place] [phone] Nurse Practitioner Medical Oncology 09/02/22
--- NOTE | 2024-10-01 18:10 | ECG_ITS ---
Test Date: 2024-10-01 21:07:57 Measurements Intervals [place] Rate: 111 P: 67 VA: 162 QRS: 47 QRSD: 98 T: 67 QT: 316 QTc: 430 Interpretive Statements SINUS TACHYCARDIA BASELINE ARTIFACT LIMITS INTERPRETATION No previous ECG available for comparison Electronically Signed On 10-02-2024 11:53:08 CDT by Bran Rosario M.D.
--- NOTE | 2024-10-01 18:14 | ED.DIZZY ---
HPI - Dizziness General Chief Complaint: Dizziness <Spring Mejia PA-C - Last Filed: 10/01/24 18:15> Stated Complaint: dizziness for 4 days <Spring Mejia PA-C - Last Filed: 10/01/24 18:15> Time Seen by Provider: 10/01/24 19:03 <Spring Mejia PA-C - Last Filed: 10/01/24 18:15> Focused HPI: 49-year-old female presents emergency department for dizziness for the past 4 days. Patient states she feels dizzy and lightheaded like the room is spinning and like she might pass out. She states symptoms are worse when she goes from sitting to standing position. She went to her PCP yesterday and had labs drawn but are unsure of the results. States her symptoms have persisted which prompted her to come to the ED. she denies vision changes, focal numbness or weakness, chest pain or shortness of breath. States she did have some fluttering in her chest the other day but that has since resolved. Denies lower extremity edema, hemoptysis, history of VTE, recent surgeries or hospitalizations. She has never had symptoms like this before. GENERAL: Well-appearing, well-nourished, and in no acute distress. HEAD: Normocephalic, atraumatic. CHEST: Clear to auscultation. ?No respiratory distress. HEART: Regular rate and rhythm.? NEURO: ?Alert and oriented x4. Cranial nerves 2-12 intact. Strength 5/5 in BUE and BLE. Sensation intact throughout Patient screened in triage and initial orders placed.? ?Additional care and disposition to be based upon?diagnostic testing and treatment. <Spring Mejia PA-C - Last Filed: 10/01/24 18:15> Related Data Home Medications: Home Medications ?Medication ?Instructions ?Recorded ?Confirmed ?Last Taken ?Type amlodipine 10 mg tablet 10 mg DAILY 05/24/22 05/24/22 Unknown History <Spring Meija PA-C - Last Filed: 10/01/24 18:15> Allergies/Adverse Reactions: Allergies Allergy/AdvReac Type Severity Reaction Status Date / Time tramadol AdvReac Nausea and Verified 10/01/24 17:16 Vomiting <Spring Mejia PA-C - Last Filed: 10/01/24 18:15> [facility] Social History Social History: Social History Alcohol intake: never <Spring Mejia PA-C - Last Filed: 10/01/24 18:15> Exam Narrative: APPEARANCE: No apparent distress. Head: atraumatic. EYES: EOMI, NOSE: Atraumatic NECK: Trachea midline RESPIRATORY: No increased rate of breathing, speaking sentences, diffuse wheezing CARDIOVASCULAR: RRR, ABDOMINAL: Non-distended MUSCULOSKELETAl: No obvious deformities NEURO: Alert. Cranial nerves 2-12 grossly intact. Sensation light touch, motor function cerebellar function intact for 4 extremities. Gait exam was deferred. SKIN:: Warm, dry. Normal color PSYCHIATRIC: Normal affect <Elmer Mead MD - Last Filed: 10/02/24 00:35> Course Vital Signs Vital signs: Vital Signs Temperature 98.2 F 10/01/24 17:13 Pulse Rate 75 10/01/24 17:13 Respiratory Rate 18 10/01/24 17:13 Blood Pressure 161/94 H 10/01/24 17:13 Pulse Oximetry 100 10/01/24 17:13 Oxygen Delivery Room Air 10/01/24 17:13 Temperature 98.2 F 10/01/24 17:13 Pulse Rate 97 10/01/24 23:16 Respiratory Rate 15 10/01/24 23:16 Blood Pressure 153/94 H 10/01/24 23:16 Pulse Oximetry 99 10/01/24 23:16 Oxygen Delivery Room Air 10/01/24 19:28 <Spring Mejia PA-C - Last Filed: 10/01/24 18:15> Vital Signs Temperature 98.2 F 10/01/24 17:13 Pulse Rate 75 10/01/24 17:13 Respiratory Rate 18 10/01/24 17:13 Blood Pressure 161/94 H 10/01/24 17:13 Pulse Oximetry 100 10/01/24 17:13 Oxygen Delivery Room Air 10/01/24 17:13 Temperature 98.2 F 10/01/24 17:13 Pulse Rate 97 10/01/24 23:16 Respiratory Rate 15 10/01/24 23:16 Blood Pressure 153/94 H 10/01/24 23:16 Pulse Oximetry 99 10/01/24 23:16 Oxygen Delivery Room Air 10/01/24 19:28 <Elmer Mead MD - Last Filed: 10/02/24 00:35> MDM - Dizziness MDM Narrative Medical decision making narrative: -Course: 49-year-old female presenting with [address] brain negative. 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 Unclear etiology and significance. Radiology recommended MRI with and without contrast with MRA MRV. Case was discussed with Dr. Mcbride who was in agreement that the patient needs an MRI. Patient will be admitted to the hospital for further imaging. On lung exam patient wheezing with scattered rhonchi. She was given a breathing treatment with improvement. CT ordered to evaluate for occult pneumonia which showed dilated pulmonary arteries but no other pertinent findings. Patient has significant anxiety and required Valium to go into the CT scanner. -DDX includes but is not limited to: Peripheral vertigo, central vertigo, intracranial hemorrhage, posterior stroke, cerebral venous thrombosis, -Co-morbidities complicating care: Asthma, anxiety <Elmer Mead MD - Last Filed: 10/02/24 00:35> Lab Data Result diagrams: 10/01/24 18:50 10/01/24 18:50 <Spring Mejia PA-C - Last Filed: 10/01/24 18:15> Labs: Lab Results 10/01/24 10/01/24 Range/Units 18:50 18:55 WBC 8.3 (4.5-10.0) K/mm3 RBC 3.55 L (4.2-5.4) M/mm3 Hgb 10.7 L (12.0-15.0) g/dL Hct 34.3 L (37.0-47.0) % MCV 96.6 (80-100) fl MCH 30.1 (26-34) pg MCHC 31.2 L (32-36) g/dl RDW 14.7 H (11.5-14.5) % Plt Count 371 (150-375) k/mm3 MPV 10.0 (7.4-10.4) fl Immature Gran % (Auto) 0.4 (0-0.5) % Neut % (Auto) 65.1 (45.5-73.1) % Lymph % (Auto) 25.5 (18.3-44.2) % Carson % (Auto) 6.8 (2.6-8.5) % Eos % (Auto) 1.8 (0-4.4) % Baso % (Auto) 0.4 (0.2-1.2) % Lymph # (Auto) 2.11 (0.9-3.2) K/mm3 Carson # (Auto) 0.6 (0.1-0.6) K/mm3 Eos # (Auto) 0.2 (0-0.3) K/mm3 Baso # (Auto) 0.0 (0.0-0.1) K/mm3 Abs Immat Gran (auto) 0.03 (0.00-0.031) K/mm3 Absolute Neuts (auto) 5.4 (1.3-6.7) K/mm3 Absolute Nucleated RBC 0.000 (0.0-0.012) K/mm3 Nucleated RBC % 0.0 (0.0-0.2) % Sodium 139 (137-145) mmol/L Potassium 3.7 (3.4-5.0) mmol/L Chloride 108 H (98-107) mmol/L Carbon Dioxide 26 (22-30) mmol/L Anion Gap 5 (4-12) mmol/L BUN 16 (7-17) mg/dL Creatinine 0.93 (0.7-1.0) mg/dL Estim Creat Clear Calc 90 ml/min Estimated GFR > 60 (59 - ) Glucose 114 H (65-110) mg/dL Calcium 8.9 (8.4-10.2) mg/dL Magnesium 1.8 (1.6-2.3) mg/dL Total Bilirubin 0.3 (0.2-1.3) mg/dL AST 23 (14-36) U/L ALT 15 (6-35) U/L Alkaline Phosphatase 79 (38-126) U/L Troponin I < 0.012 (0.000-0.034) ng/mL Total Protein 7.0 (6.3-8.2) g/dL Albumin 4.1 (3.5-5.1) g/dL Urine Color Yellow (Yellow) Urine Appearance Clear (Clear) Urine pH 5.5 (5.0-9.0) Ur Specific [place] 1.028 (1.001-1.035) Urine Protein Trace (Negative) mg/dL Urine Glucose (UA) Negative (Negative) mg/dL Urine Ketones Trace H (Negative) mg/dL Ur Blood (Man) Negative (Negative) Urine Nitrate Negative (Negative) Urine Bilirubin Negative (Negative) Urine Urobilinogen 1.0 (<2.0) mg/dL Leukocyte Esterase Rfl Negative (Negative) SANTIAGO/UL Urine RBC 0-2 (0-2) /hpf Urine WBC 6-10 H (0-3) /hpf Ur Squamous Epith Cells Moderate (Few) /hpf Urine Bacteria 2+ H /hpf Urine Casts 0-2 POC Urine HCG, Qual Negative (Negative) <Spring Mejia PA-C - Last Filed: 10/01/24 18:15> Lab Results 10/01/24 10/01/24 Range/Units 18:50 18:55 WBC 8.3 (4.5-10.0) K/mm3 RBC 3.55 L (4.2-5.4) M/mm3 Hgb 10.7 L (12.0-15.0) g/dL Hct 34.3 L (37.0-47.0) % MCV 96.6 (80-100) fl MCH 30.1 (26-34) pg MCHC 31.2 L (32-36) g/dl RDW 14.7 H (11.5-14.5) % Plt Count 371 (150-375) k/mm3 MPV 10.0 (7.4-10.4) fl Immature Gran % (Auto) 0.4 (0-0.5) % Neut % (Auto) 65.1 (45.5-73.1) % Lymph % (Auto) 25.5 (18.3-44.2) % Carson % (Auto) 6.8 (2.6-8.5) % Eos % (Auto) 1.8 (0-4.4) % Baso % (Auto) 0.4 (0.2-1.2) % Lymph # (Auto) 2.11 (0.9-3.2) K/mm3 Carson # (Auto) 0.6 (0.1-0.6) K/mm3 Eos # (Auto) 0.2 (0-0.3) K/mm3 Baso # (Auto) 0.0 (0.0-0.1) K/mm3 Abs Immat Gran (auto) 0.03 (0.00-0.031) K/mm3 Absolute Neuts (auto) 5.4 (1.3-6.7) K/mm3 Absolute Nucleated RBC 0.000 (0.0-0.012) K/mm3 Nucleated RBC % 0.0 (0.0-0.2) % Sodium 139 (137-145) mmol/L Potassium 3.7 (3.4-5.0) mmol/L Chloride 108 H (98-107) mmol/L Carbon Dioxide 26 (22-30) mmol/L Anion Gap 5 (4-12) mmol/L BUN 16 (7-17) mg/dL Creatinine 0.93 (0.7-1.0) mg/dL Estim Creat Clear Calc 90 ml/min Estimated GFR > 60 (59 - ) Glucose 114 H (65-110) mg/dL Calcium 8.9 (8.4-10.2) mg/dL Magnesium 1.8 (1.6-2.3) mg/dL Total Bilirubin 0.3 (0.2-1.3) mg/dL AST 23 (14-36) U/L ALT 15 (6-35) U/L Alkaline Phosphatase 79 (38-126) U/L Troponin I < 0.012 (0.000-0.034) ng/mL Total Protein 7.0 (6.3-8.2) g/dL Albumin 4.1 (3.5-5.1) g/dL Urine Color Yellow (Yellow) Urine Appearance Clear (Clear) Urine pH 5.5 (5.0-9.0) Ur Specific [place] 1.028 (1.001-1.035) Urine Protein Trace (Negative) mg/dL Urine Glucose (UA) Negative (Negative) mg/dL Urine Ketones Trace H (Negative) mg/dL Ur Blood (Man) Negative (Negative) Urine Nitrate Negative (Negative) Urine Bilirubin Negative (Negative) Urine Urobilinogen 1.0 (<2.0) mg/dL Leukocyte Esterase Rfl Negative (Negative) SANTIAGO/UL Urine RBC 0-2 (0-2) /hpf Urine WBC 6-10 H (0-3) /hpf Ur Squamous Epith Cells Moderate (Few) /hpf Urine Bacteria 2+ H /hpf Urine Casts 0-2 POC Urine HCG, Qual Negative (Negative) <Elmer Mead MD - Last Filed: 10/02/24 00:35> Discharge Plan Discharge Clinical Impression: Dizziness, Aneurysm, cerebral, Abnormal computed tomography angiography (CTA), Asthma exacerbation <Spring Mejia PA-C - Last Filed: 10/01/24 18:15> Patient Disposition: Still a Patient <Spring Mejia PA-C - Last Filed: 10/01/24 18:15> Condition: Stable <Spring Mejia PA-C - Last Filed: 10/01/24 18:15> Patient Language: Surinamese <Spring Mejia PA-C - Last Filed: 10/01/24 18:15> Prescriptions: No Action amlodipine 10 mg tablet 10 mg DAILY <Spring Mejia PA-C - Last Filed: 10/01/24 18:15> Follow-up/Referrals: Ananya,Raya De Guzman APRN [Primary Care Provider] - <ELIZABETH Gagnon Last Filed: 10/01/24 18:15>
--- NOTE | 2024-10-01 19:00 | PC.NURSE ---
PT REFUSED TO HAVE IV PLACED WITH LAB DRAW. SHE STATES HER ANXIETY IS TOO HIGH TO KEEP IN AN IV WHILE IN TRIAGE
[2024-10-01 19:01] LABS: Basophils Percent Auto 0.4 % (0.2-1.2); Eosinophils Absolute Auto 0.2 K/mm3 (0-0.3); Eosinophils Percent Auto 1.8 % (0-4.4); Hematocrit 34.3 % (37.0-47.0); Hemoglobin 10.7 g/dL (12.0-15.0); Immature Granulocyte Absolute 0.03 K/mm3 (0.00-0.031); Immature Granulocyte Percent A 0.4 % (0-0.5); Lymphocytes Absolute Auto 2.11 K/mm3 (0.9-3.2); Lymphocytes Percent Auto 25.5 % (18.3-44.2); Mean Corpuscular HGB Conc 31.2 g/dl (32-36); Mean Corpuscular Hemoglobin 30.1 pg (26-34); Mean Corpuscular Volume 96.6 fl (80-100); Monocytes Absolute Auto 0.6 K/mm3 (0.1-0.6); Monocytes Percent Auto 6.8 % (2.6-8.5); Neutrophils Absolute Auto 5.4 K/mm3 (1.3-6.7); Neutrophils Percent Auto 65.1 % (45.5-73.1); Platelet Count Result 371 k/mm3 (150-375); Red Blood Count 3.55 M/mm3 (4.2-5.4); Red Cell Distribution Width 14.7 % (11.5-14.5); White Blood Count 8.3 K/mm3 (4.5-10.0)
[2024-10-01 19:05] LABS: BEDSIDEPREGUCG Negative (Negative)
[2024-10-01 19:15] LABS: Magnesium 1.8 mg/dL (1.6-2.3)
[2024-10-01 19:16] LABS: Alanine Aminotransferase 15 U/L (6-35); Albumin Level 4.1 g/dL (3.5-5.1); Alkaline Phosphatase 79 U/L (38-126); Anion Gap 5 mmol/L (4-12); Aspartate Amino Transferase 23 U/L (14-36); Bilirubin,Total 0.3 mg/dL (0.2-1.3); Blood Urea Nitrogen 16 mg/dL (7-17); Calcium 8.9 mg/dL (8.4-10.2); Carbon Dioxide 26 mmol/L (22-30); Chloride 108 mmol/L (98-107); Estimated CRCL calculation 90 ml/min; Estimated Glomerular Filt Rate > 60; Glucose 114 mg/dL (65-110); Potassium 3.7 mmol/L (3.4-5.0); Sodium 139 mmol/L (137-145)
--- OUTSIDE RECORDS SUMMARY | 2024-10-01 19:20 | XMS_ITS | Clinical Summary ---
Author Organization [facility] Address [address] [place] [address] Care Team Providers Care Turret Punch Press Operator Name Role Phone Raya Hare NP Primary Care Provider [phone] Elmer Miranda DO Unavailable [phone] Leni Goldstein APPLICATION PROCESSOR Unavailable [phone] Allergies Active Allergy Reactions Criticality Noted Date [...] on file Legal Sex Female 11:37 PM LOSS PREVENTION OFFICER Gender Identity Not on file Sexual [...] Insurance CIGNA CIGNA OPEN ACCESS Care Teams Turret Punch Press Operator Relationship Specialty Start Date End Date Raya Hare, APPLICATION PROCESSOR [address] [place] [address] PCP - General Nurse Practitioner 08/12/21 Elmer Miranda DO [address] [place] [address] 08/12/21 Leni Goldstein, APPLICATION PROCESSOR [address] [place] [address] [id number] Nurse Practitioner Medical Oncology 09/02/22
--- OUTSIDE RECORDS SUMMARY | 2024-10-01 19:20 | XMS_ITS | Encounter Summary ---
Author Organization [facility] Address [address] [place] [address] Care Team Providers Care Rock Crusher Operator Name Role Phone Raya Hare ONCOLOGY TRANSPLANT NETWORK MANAGER Primary Care Provider Divina Alicea MD Primary Care Provider + Encounter Details Date Type Department Care Team (Late Contact Info) Description 11/01/2022 [employer] Message Enc [facility] Family Medicine [facility] [address] [place] [address] Shahana, [facility] Provider Amlodipine Social History Tobacco Use Types [...] Sex Assigned at Female 06/10/2024 11:08 AM NURSE'S ASSISTANT Legal Sex Female 5:01 PM CDT [...] st Contact Info) Description 07/07/2025 10:30 AM NURSE'S ASSISTANT Office Visit [facility] Family Medicine [facility] [address] [facility] [address] [place] [address] Divina Ness MD [address] [place] [address] documented as of this encounter Visit Diagnoses Not on filedocumented in this encounter Additional Health Concerns Infection Onset Date Last Indicated Resolved Time MRSA 12/26/2016 12/26/2016 COVID-19 Rule Out 05/02/2024 05/02/2024 05/02/2024 3:48 PM NURSE'S ASSISTANT documented as of this encounter Care Teams Rock Crusher Operator Relationship Specialty Start Date End Date Raya Hare ONCOLOGY TRANSPLANT NETWORK MANAGER PCP - General NURSE PRACTITIONER 02/17/20 10/18/23 Divina Ness MD [address] [place] [address] PCP - General FAMILY PRACTICE 03/11/24 documented as of this encounter
--- OUTSIDE RECORDS SUMMARY | 2024-10-01 19:20 | XMS_ITS | Referral Summary ---
Author Organization [facility] Address [address] [place] [address] Care Team Providers Care City Council Member Name Role Phone Raya Hare PREVENTION COORDINATOR Primary Care Provider [phone] Elmer Miranda DO Unavailable [phone] Leni Goldstein PREVENTION COORDINATOR Unavailable [phone] Allergies Active Allergy Reactions Criticality Noted Date [...] on file Legal Sex Female 11:37 PM NEEDLE POLISHER Gender Identity Not on file Sexual Orientation [...] Insurance CIGNA CIGNA OPEN ACCESS Care Teams City Council Member Relationship Specialty Start Date End Date Raya [place] [address] [place] [address] PCP - General Nurse Practitioner 08/12/21 Elmer Miranda [place] [address] [place] [address] 08/12/21 Leni Goldstein NP [address] [place] [address] Nurse Practitioner Medical Oncology 09/02/22
--- OUTSIDE RECORDS SUMMARY | 2024-10-01 19:20 | XMS_ITS | Encounter Summary ---
Author Organization [facility] Address [address] [place] [address] Care Team Providers Care [place] Boatman Name Role Phone Divina Ness MD Primary Care Provider + Encounter Details Date Type Department Care Team (Latest Contact Info) Description 10/01/2024 Results Follow-Up [facility] Family Medicine - [place] [address] [facility] [address] [place] [address] Marivel Robison NP [address] [place] [address] TSH W/REFLEX, COMPREHENSIVE METABOLIC PANEL, FERRITIN, [...] Sex Assigned at Female 06/10/2024 11:08 AM SUPERCHARGE REPAIR SUPERVISOR Legal Sex Female 5:01 PM CDT Gender Identity Female 09/30/2024 12:20 PM CDT Sexual Orientation Not on file documented as of this encounter Plan of Treatment Upcoming Encounters Date Type Department Care Team (Late st Contact Info) Description 07/07/2025 10:30 AM SUPERCHARGE REPAIR SUPERVISOR Office Visit [facility] Family Medicine - [place] [address] [facility] [address] [place] [address] Divina Ness MD [address] [place] [address] documented as of this encounter Visit Diagnoses Not on filedocumented in this encounter Additional Health Concerns Infection Onset Date Last Indicated Resolved Time MRSA 12/26/2016 12/26/2016 documented as of this encounter Care Teams [place] Boatman Relationship Specialty Start Date End Date Divina Ness MD [address] [facility] [address] [place] [address] PCP - General FAMILY PRACTICE 03/11/24 documented as of this encounter
--- OUTSIDE RECORDS SUMMARY | 2024-10-01 19:20 | XMS_ITS | Encounter Summary ---
Author Organization [facility] Address [address] [place] [address] Care Team Providers Care Cto Name Role Phone Divina Ness MD Primary Care Provider + Reason for Visit * Reason Comments Dizziness/lightheadedness Patient presen ts with c/o dizziness and lightheaded x Monday Encounter Details Date Type Department Care Team (Late st Contact Info) Description 09/30/2024 12:20 PM CDT Office Visit [facility] Medical [facility] Family Medicine [facility] [address] [address] Marivel Robison NP [address] [place] [address] Dizziness/lightheaded ness (Patient presents with c/o dizziness [...] Sex Assigned at Female 06/10/2024 11:08 AM GUIDE DOG TRAINER Legal Sex Female 5:01 PM CDT Gender [...] Body Mass Index 46 06/24/2024 10:40 AM GUIDE DOG TRAINER documented in this encounter Patient Instructions * Attachments The following attachments cannot be sent through Care Everywhere. * Vertigo (a Type of Dizziness) Discharge Instructions (Nepalese) * Vestibular Exercises (Nepalese) documented in this encounter Progress Notes * [...] st Contact Info) Description 07/07/2025 10:30 AM GUIDE DOG TRAINER Office Visit [facility] Medical Group Family Medicine - [place] [address] [facility] [address] [place] [address] Divina Ness MD [address] [place] [phone] documented as of this encounter Procedures Procedure [...] - 3.740 uIU/ML 10/01/2024 10:53 AM CDT [facility] 09/30/2024 12:5 2 PM CDT us Marivel Robison [facility] Final Res ult [facility] [address] [place] [address], * (ABNORMAL) COMPREHENSIVE METABOLIC PANEL (09/30/2024 12:52 PM CDT) SODIUM S/P/B 140 136 - 145 MMOL/L 10/01/2024 10:53 AM CDT [facility] POTASSIUM S/P/B 4.7 3.5 - 5.1 MMOL/L 10/01/2024 10:53 AM CDT [facility] CHLORIDE S/P/B 105 98 - 107 MMOL/L 10/01/2024 10:53 AM CDT [facility] CO2 28.3 21 - 32 MMOL/L 10/01/2024 10:53 AM CDT [facility] GLUCOSE 86 70 - 99 MG/DL 10/01/2024 10:53 [facility] BUN 20(H) 7 - 18 MG/DL 10/01/2024 10:53 AM [facility] CREATININE S/P/B 0.98 0.55 - 1.02 MG/DL 10/01/2024 10:53 AM T [facility] CALCIUM S/P/B 9.1 8.4 - 10.5 MG/DL 10/01/2024 10:53 AM CDT [facility] BILIRUBIN TOTAL S/P/B 0.2 0.2 - 1.0 MG/DL 10/01/2024 10:53 AM T [facility] ALKALINE PHOSPHATASE S/P/B 92 39 - 100 U/L 10/01/2024 10:53 AM T [facility] AST 12(L) 15 - 37 U/L 10/01/2024 10:53 AM T [facility] ALT 16 14 - 59 U/L 10/01/2024 10:53 AM T [facility] TOTAL PROTEIN S/P/B 6.8 6.4 - 8.2 G/DL 10/01/2024 10:53 AM [facility] ALBUMIN S/P/B 3.5 3.4 - 5.0 G/DL 10/01/2024 10:53 AM [facility] ANION GAP 6.7 5 - 15 MMOL/L 10/01/2024 10:53 AM T [facility] Comment:REFERENCE RANGE NOT ESTABLISHED OSMOLALITY (CALC) 292 MOSM/KG 025 10:53 AM T [facility] Comment:REFERENCE RANGE NOT ESTABLISHED GFR ESTIMATE 72(L) >90 ML/MIN/1. 73 M2 10/01/2024 10:53 AM [facility] GFR NOTES GFR REFERENCE S: 10/01/2024 10:53 AM [facility] Comment: THE ESTIMATED GFR IS CALCULATED USING [...] 09/30/2024 12:5 2 PM CDT Marivel Robison [facility] Final Res ult Performing Organization Address [facility]/ZIP Co de Phone Number [address] [address], * FERRITIN (09/30/2024 12:52 PM CDT) FERRITIN 39.0 8 - 252 NG/ML 10/01/2024 10:53 AM CDT [facility] 09/30/2024 12:5 2 PM CDT Marivel Robison [facility] Final Res ult Performing Organization Address City/[facility]/ZIP Co de Phone Number [address] [address], [place] [phone] * (ABNORMAL) CBC W/DIFF AUTOMATED (09/30/2024 12:52 PM CDT) WBC 6.34 4.00 - 10.80 x10'3/uL 09/30/2024 7:50 PM CDT [facility] RBC 3.49(L) 4.10 - 5.40 x10'6/uL 09/30/2024 7:50 PM [facility] HGB 10.6(L) 12.0 - 16.0 G/DL 09/30/2024 7:50 PM CDT [facility] HCT 33.8(L) 36.0 - 47.0 % 09/30/2024 7:50 PM CDT [facility] MCV 96.8 78.0 - 100.0 FL 09/30/2024 7:50 PM CDT [facility] MCH 30.4 27.0 - 31.0 PG 09/30/2024 7:50 PM CDT [facility] MCHC 31.4(L) 33.0 - 36.0 G/DL 09/30/2024 7:50 PM T [facility] RDW 14.6(H) 11.5 - 14.5 % 09/30/2024 7:50 PM CDT [facility] PLT 407(H) 150 - 350 x10'3/uL 09/30/2024 7:50 PM CDT [facility] MPV 10.8(H) 7.4 - 10.4 FL 09/30/2024 7:50 PM CDT [facility] DIFFERENTIAL TYPE AUTOMATED DIFFERENTIAL 09/30/2024 7:50 PM CDT [facility] NEUTROPHILS % 65.6 % 09/30/2024 7:50 PM CDT [facility] LYMPHOCYTES % 24.6 % 09/30/2024 7:50 PM CDT [facility] MONOCYTES % 6.8 % 09/30/2024 7:50 PM CDT [facility] EOSINOPHILS % 2.7 % 09/30/2024 7:50 PM CDT [facility] BASOPHILS % 0.3 % 09/30/2024 7:50 PM CDT [facility] IMMATURE GRANS % 0.0 % 09/30/2024 7:50 PM CDT [facility] ABS. NEUTROPHILS 4.16 1.60 - 8.30 x10'3/uL 09/30/2024 7:50 PM CDT -[facility] ABS. LYMPHOCYTES 1.56 0.80 - 4.70 x10'3/uL 09/30/2024 7:50 PM CDT MG-[facility] ABS. MONOCYTES 0.43 0.00 - 1.50 x10'3/uL 09/30/2024 7:50 PM CDT MG-[facility] ABS. EOSINOPHILS 0.17 0.00 - 0.40 x10'3/uL 09/30/2024 7:50 PM CDT MG-[facility] ABS. BASOPHILS 0.02 0.00 - 0.20 x10'3/uL 09/30/2024 7:50 PM CDT -[facility] ABS. IMMATURE GRANULOCYTES 0.00 0.00 - 0.03 x10'3/uL 09/30/2024 7:50 PM CDT -[facility] 09/30/2024 12:5 2 PM CDT us Marivel Robison [facility] Final Res ult [facility] [address] [place] [address], documented in this encounter Visit Diagnoses Diagnosis Dizziness Dizziness and giddiness Lightheadedness Dizziness and giddiness Anemia, unspecified type documented in this encounter Additional Health Concerns Infection Onset Date Last Indicated Resolved Time MRSA 12/26/2016 12/26/2016 documented as of this encounter Care Teams Cto Relationship Specialty Start Date End Date Divina Ness MD [address] [place] [address] PCP - General FAMILY PRACTICE 03/11/24 documented as of this encounter
--- OUTSIDE RECORDS SUMMARY | 2024-10-01 19:20 | XMS_ITS | Clinical Summary ---
Author Organization [facility] Address [address] [place] [address] Phone Care Team Providers Care Bottom Crane Operator Name Role Phone Raya Hare APRN, NATALEE Primary Care Provider + Sean Nichole MD Unavailable [phone] Allergies Active Allergy Reactions Criticality Noted Date [...] this topic Insurance MEDICAID [place] Care Teams Bottom Crane Operator Relationship Specialty Start Date End Date Raya Hare APRN, COLLAR STARCHER [address] [place] [address] PCP - General Family Medicine 08/30/21 Sean Nichole MD [address] [place] [phone] Consulting Physician Oncology 08/30/21
--- OUTSIDE RECORDS SUMMARY | 2024-10-01 19:20 | XMS_ITS | Encounter Summary ---
Author Organization [facility] Address [address] [place] [address] Care Team Providers Care Library Cataloging Technician Name Role Phone Divina Ness MD Primary Care Provider + Encounter Details Date Type Department Care Team (Late st Contact Info) Description 03/13/2024 Hospital Orders Only [address] [phone] Divina eNss MD [address] [place] [address] Social History Tobacco Use Types Packs/Day [...] Sex Assigned at Female 06/10/2024 11:08 AM RELEASE MANAGER Legal Sex Female 5:01 PM CDT Gender Identity Female 09/30/2024 12:20 PM CDT Sexual Orientation Not on file documented as of this encounter Plan of Treatment Upcoming Encounters Date Type Department Care Team (Late st Contact Info) Description 07/07/2025 10:30 AM RELEASE MANAGER Office Visit [address] [address] Divina Ness MD [address] [place] [address] documented as of this encounter Visit Diagnoses Not on filedocumented in this encounter Additional Health Concerns Infection Onset Date Last Indicated Resolved Time MRSA 12/26/2016 12/26/2016 COVID-19 Rule Out 05/02/2024 05/02/2024 05/02/2024 3:48 PM RELEASE MANAGER documented as of this encounter Care Teams Library Cataloging Technician Relationship Specialty Start Date End Date Divina Ness MD [address] [facility] [address] [place] [address] PCP - General FAMILY PRACTICE 03/11/24 documented as of this encounter
--- OUTSIDE RECORDS SUMMARY | 2024-10-01 19:20 | XMS_ITS | Encounter Summary ---
Author Organization [facility] Address [address] [place] [address] Care Team Providers Care Wellness Health Coach Name Role Phone Raya Hare NP Primary Care Provider Divina Alicea MD Primary Care Provider + Encounter Details Date Type Department Care Team (Late st Contact Info) Description 08/10/2021 [employer] Message Enc [facility] Family Medicine - [address] [address] Shahana, [facility] Provider Nebulizer kit Social History Tobacco Use [...] Sex Assigned at Female 06/10/2024 11:08 AM PAID SEARCH MANAGER Legal Sex Female 5:01 PM CDT [...] st Contact Info) Description 07/07/2025 10:30 AM PAID SEARCH MANAGER Office Visit [facility] Family Medicine - [place] [address] [place] [address] Divina Ness MD [address] [place], [place] [address] documented as of this encounter Visit Diagnoses Not on filedocumented in this encounter Additional Health Concerns Infection Onset Date Last Indicated Resolved Time MRSA 12/26/2016 12/26/2016 COVID-19 Rule Out 05/02/2024 05/02/2024 05/02/2024 3:48 PM PAID SEARCH MANAGER documented as of this encounter Care Teams Wellness Health Coach Relationship Specialty Start Date End Date Raya Hare NP PCP - General NURSE PRACTITIONER 02/17/20 10/18/23 Divina Ness MD [address] [place] [address] PCP - General FAMILY PRACTICE 03/11/24 documented as of this encounter
--- OUTSIDE RECORDS SUMMARY | 2024-10-01 19:20 | XMS_ITS | CONTINUITY OF CARE DOCUMENT ---
Author Name rober richter Address Unknown Organization [facility] Address [address] [facility] [address] [place] [address] Phone [phone] Care Team Providers Care Replanting Machine Crewman Name Role Phone Brisa DOSS, Amanuel Unavailable [phone] IRVING ISBELL MD Unavailable IRVING ISBELL MD Unavailable [phone] PROBLEMS Condition Status Date Provider Notes HTN active Amanuel Ledezma MD Family History of CVA or Stroke: active ? Holden Ledezma MD Family History of Sudden Cardiac : active ? Amanuel Ledezma MD Hypertension active ? Amanuel Ledezma MD Obesity active Amanuel Ledezma MD ENCOUNTERS Date Type Provider Location Encounter Diagnosis - In-person encounter Office Visit Amanuel Ledezma MD [place] [facility] HTNFamily History of CVA or Stroke:Family [...] Makamandeep lder height E&M 67 [in_i] Melany Sloancrystallila lder ALLERGIES No Known Drug Allergies HISTORY OF MEDICATION USE Medication Status Instructions Dates Provider Indications Com ments AMLODIPINE BESYLATE 10 MG ORAL TABLET active 1 po daily 3 Amanuel Ledezma MD METOPROLOL TARTRATE 25 MG ORAL TABLET active one tab. twice daily 3 Melany Borja SOCIAL HISTORY Date Observation Value Provider alcohol use no Amanuel Leggett D passive cigarette sm payton exposure no Amanuel Ledezma MD social history E&M S moking History: aGb gomez is a former smoker. 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
--- OUTSIDE RECORDS SUMMARY | 2024-10-01 19:20 | XMS_ITS | Encounter Summary ---
Author Organization [facility] Address [address] [place] [address] Care Team Providers Care Hose Cementer Name Role Phone Raya Hare NP Primary Care Provider Divina Alicea MD Primary Care Provider + Encounter Details Date Type Department Care Team (Late st Contact Info) Description 08/10/2021 [employer] Message Enc [facility] Family Medicine - [address] [address] Raya Hare NP Left knee [...] Sex Assigned at Female 06/10/2024 11:08 AM MEASUREMENT SUPERVISOR Legal Sex Female 5:01 PM CDT [...] st Contact Info) Description 07/07/2025 10:30 AM MEASUREMENT SUPERVISOR Office Visit [facility] Family Medicine - [place] [address] [place] [address] Divina Ness MD [address] [place] [address] documented as of this encounter Visit Diagnoses Diagnosis Chronic pain of left knee- Primary Pain in joint, lower leg documented in this encounter Additional Health Concerns Infection Onset Date Last Indicated Resolved Time MRSA 12/26/2016 12/26/2016 COVID-19 Rule Out 05/02/2024 05/02/2024 05/02/2024 3:48 PM MEASUREMENT SUPERVISOR documented as of this encounter Care Teams Hose Cementer Relationship Specialty Start Date End Date Raya Hare QUALITY ASSURANCE CALIBRATOR PCP - General NURSE PRACTITIONER 02/17/20 10/18/23 Divina Ness MD [address] [place] [address] PCP - General FAMILY PRACTICE 03/11/24 documented as of this encounter
--- OUTSIDE RECORDS SUMMARY | 2024-10-01 19:20 | XMS_ITS | Encounter Summary ---
Author Organization [facility] Address [address] [place] [address] Care Team Providers Care Finance Director Name Role Phone Raya Hare NP Primary Care Provider Divina Alicea MD Primary Care Provider + Encounter Details Date Type Department Care Team (Late st Contact Info) Description 07/17/2023 MyChart Message Enc [facility] Family [facility] [address] [place] [address] Raya Hare NP Refill Social [...] Sex Assigned at Female 06/10/2024 11:08 AM MANAGER OF FINANCIAL REPORTING Legal Sex Female 5:01 PM CDT Gender Identity Female 09/30/2024 12:20 PM CDT Sexual Orientation Not on file documented as of this encounter Progress Notes * Vijay Sims MA - 07/21/2023 8:13 AM CST Spoke to pt, she did recieve the medication requested. GER OF FINANCIAL REPORTING documented in this encounter Plan of Treatment Upcoming Encounters Date Type Department Care Team (Late st Contact Info) Description 07/07/2025 10:30 AM MANAGER OF FINANCIAL REPORTING Office Visit [facility] Family Medicine [facility] [address] [place] [address] Divina Ness MD [address] [place], [place] [address] documented as of this encounter Visit Diagnoses Not on filedocumented in this encounter Additional Health Concerns Infection Onset Date Last Indicated Resolved Time MRSA 12/26/2016 12/26/2016 COVID-19 Rule Out 05/02/2024 05/02/2024 05/02/2024 3:48 PM MANAGER OF FINANCIAL REPORTING documented as of this encounter Care Teams Finance Director Relationship Specialty Start Date End Date Raya Hare TAB BUILDER PCP - General NURSE PRACTITIONER 02/17/20 10/18/23 Divina Ness MD [address] [place] [address] PCP - General FAMILY PRACTICE 03/11/24 documented as of this encounter
--- OUTSIDE RECORDS SUMMARY | 2024-10-01 19:20 | XMS_ITS | Encounter Summary ---
Author Organization [facility] Address [address] [place] [address] Care Team Providers Care Medical Legal Investigator Name Role Phone Raya Hare WEAVING SUPERVISOR Primary Care Provider Divina Alicea MD Primary Care Provider + Encounter Details Date Type Department Care Team (Late st Contact Info) Description 02/24/2023 MyChart Message Enc [facility] Medical [facility] Family Medicine [address] [address] Shahana, [facility] Provider Tetanus Social History Tobacco Use Types [...] Sex Assigned at Female 06/10/2024 11:08 AM BIOLOGY ADJUNCT INSTRUCTOR Legal Sex Female 5:01 PM CDT Gender Identity Female 09/30/2024 12:20 PM CDT Sexual Orientation Not on file documented as of this encounter Plan of Treatment Upcoming Encounters Date Type Department Care Team (Late st Contact Info) Description 07/07/2025 10:30 AM BIOLOGY ADJUNCT INSTRUCTOR Office Visit [facility] Medical [facility] Family Medicine [facility] [address] [place] [phone] Divina Ness MD [address] [place], [place] [phone] documented as of this encounter Visit Diagnoses Not on filedocumented in this encounter Additional Health Concerns Infection Onset Date Last Indicated Resolved Time MRSA 12/26/2016 12/26/2016 COVID-19 Rule Out 05/02/2024 05/02/2024 05/02/2024 3:48 PM BIOLOGY ADJUNCT INSTRUCTOR documented as of this encounter Care Teams Medical Legal Investigator Relationship Specialty Start Date End Date Raya Hare NP PCP - General NURSE PRACTITIONER 02/17/20 10/18/23 Divina Ness MD [address] [address] PCP - General FAMILY PRACTICE 03/11/24 documented as of this encounter
--- OUTSIDE RECORDS SUMMARY | 2024-10-01 19:20 | XMS_ITS | Encounter Summary ---
Author Organization [facility] Address [address] [place] [address] Care Team Providers Care Bingo Clerk Name Role Phone Raya Hare PALS SPECIALIST Primary Care Provider Divina Alicea MD Primary Care Provider + Encounter Details Date Type Department Care Team (Late st Contact Info) Description 10/20/2021 [employer] Message Enc [facility] Family Medicine [address] [address] [employer], [facility] Provider Lab results Social History Tobacco Use [...] Sex Assigned at Female 06/10/2024 11:08 AM SECURITY ASSISTANT Legal Sex Female 5:01 PM CDT Gender Identity Female 09/30/2024 12:20 PM CDT Sexual Orientation Not on file documented as of this encounter Plan of Treatment Upcoming Encounters Date Type Department Care Team (Late st Contact Info) Description 07/07/2025 10:30 AM SECURITY ASSISTANT Office Visit [facility] Family Medicine [facility] [address] [place] [phone] Divina Ness MD [address] [place] [address] documented as of this encounter Visit Diagnoses Not on filedocumented in this encounter Additional Health Concerns Infection Onset Date Last Indicated Resolved Time MRSA 12/26/2016 12/26/2016 COVID-19 Rule Out 05/02/2024 05/02/2024 05/02/2024 3:48 PM SECURITY ASSISTANT documented as of this encounter Care Teams Bingo Clerk Relationship Specialty Start Date End Date Raya Hare PALS SPECIALIST PCP - General NURSE PRACTITIONER 02/17/20 10/18/23 Divina Ness MD [address] [address] PCP - General FAMILY PRACTICE 03/11/24 documented as of this encounter
--- OUTSIDE RECORDS SUMMARY | 2024-10-01 19:20 | XMS_ITS | Encounter Summary ---
Author Organization [facility] Address [address] [place] [address] Care Team Providers Care Sales Service Promoter Name Role Phone Divina Ness MD Primary Care Provider + Encounter Details Date Type Department Care Team (Late st Contact Info) Description 10/01/2024 MyChart Message Enc [facility] Family Medicine - [place] [address] [place] [address] Divina Ness MD [address] [place] [address] Dizziness Social History Tobacco Use [...] Assigned at Female 06/10/2024 11:08 AM WATER TAXI OPERATOR Legal Sex Female 5:01 PM CDT Gender [...] Contact Info) Description 07/07/2025 10:30 AM WATER TAXI OPERATOR Office Visit [facility] Family Medicine - [place] [address] [place], [place] [address] Divina Ness MD [address] [place], [place] [phone] documented as of this encounter Visit Diagnoses Not on filedocumented in this encounter Additional Health Concerns Infection Onset Date Last Indicated Resolved Time MRSA 12/26/2016 12/26/2016 documented as of this encounter Care Teams Sales Service Promoter Relationship Specialty Start Date End Date Divina Ness MD [address] [place], [place] [phone] PCP - General FAMILY PRACTICE 03/11/24 documented as of this encounter
--- OUTSIDE RECORDS SUMMARY | 2024-10-01 19:20 | XMS_ITS | Clinical Summary ---
Author Organization [facility] Address [address] [place] [address] Care Team Providers Care Entry Level Account Manager Name Role Phone Unavailable Primary Care Provider Unavailabl e Source Comments [facility],non-owned Affiliates and Associated Physician Practices is amultiple site organization consisting of ambulatory clinics and hospital sitesin [place], [place], [place] and [place]. This disclosure is being madepursuant to the Care Everywhere program and may not contain all information available regarding this patient. Last updated 18.[facility] Allergies No known active allergies Medications * [...] on file Legal Sex Female 8:47 AM MATERIALS ASSISTANT Gender Identity Not on file Sexual [...]
--- OUTSIDE RECORDS SUMMARY | 2024-10-01 19:20 | XMS_ITS | Encounter Summary ---
Author Organization [facility] Address [address] [place] [address] Care Team Providers Care Patient Services Technician Name Role Phone Raya Hare NP Primary Care Provider Divina Alicea MD Primary Care Provider + Encounter Details Date Type Department Care Team (Late st Contact Info) Description 08/30/2021 Mingglhart Message Enc [facility] Family Medicine [address] [address] Raya Hare NP Hematology referral [...] Sex Assigned at Female 06/10/2024 11:08 AM COIN PURSE FRAMER Legal Sex Female 5:01 PM CDT Gender Identity Female 09/30/2024 12:20 PM CDT Sexual Orientation Not on file documented as of this encounter Plan of Treatment Upcoming Encounters Date Type Department Care Team (Late st Contact Info) Description 07/07/2025 10:30 AM COIN PURSE FRAMER Office Visit [facility] Family Medicine [facility] [address] [place] [address] [phone] Divina Ness MD [address] [place] [address] documented as of this encounter Visit Diagnoses Not on filedocumented in this encounter Additional Health Concerns Infection Onset Date Last Indicated Resolved Time MRSA 12/26/2016 12/26/2016 COVID-19 Rule Out 05/02/2024 05/02/2024 05/02/2024 3:48 PM COIN PURSE FRAMER documented as of this encounter Care Teams Patient Services Technician Relationship Specialty Start Date End Date Raya Hare ENVIRONMENTAL SERVICES LEAD PCP - General NURSE PRACTITIONER 02/17/20 10/18/23 Divina Ness MD [address] [address] PCP - General FAMILY PRACTICE 03/11/24 documented as of this encounter
--- OUTSIDE RECORDS SUMMARY | 2024-10-01 19:20 | XMS_ITS | Encounter Summary ---
Author Organization [facility] Address [address] [place] [address] Care Team Providers Care Facial Operator Name Role Phone Elmer Miranda DO Primary Care Provider [phone] Raya Hare NP Primary Care Provider Gertrudis Divina Gasca MD Primary Care Provider + Encounter Details Date Type Department Care Team (Latest Contact Info) Description 03/27/[address] [facility] Josué Farrell MD Social History Tobacco Use Types Packs/Day Years Used Date Smoking Tobacco: Never Assessed Comments Unknown Sex and Gender Information Value Date Recorded Sex Assigned at Female 06/10/2024 11:08 AM GIFT CONSULTANT Legal Sex Female 5:01 PM CDT Gender Identity Female 09/30/2024 12:20 PM CDT Sexual Orientation Not on file documented as of this encounter Plan of Treatment Upcoming Encounters Date Type Department Care Team (Late st Contact Info) Description 07/07/2025 10:30 AM GIFT CONSULTANT Office Visit [facility] Family Medicine [place] [address] [facility] [address] [place] [phone] Divina Ness MD [address] [facility] [address] [place] [address] documented as of this encounter Visit Diagnoses Not on filedocumented in this encounter Additional Health Concerns Infection Onset Date Last Indicated Resolved Time MRSA 12/26/2016 12/26/2016 COVID-19 Rule Out 05/02/2024 05/02/2024 05/02/2024 3:48 PM GIFT CONSULTANT documented as of this encounter Care Teams Facial Operator Relationship Specialty Start Date End Date Elmer Miranda DO PCP - General FAMILY PRACTICE 04/16/18 02/16/20 Raya Hare NP PCP - General NURSE PRACTITIONER 02/17/20 10/18/23 Divina Ness MD [address] [address] PCP - General FAMILY PRACTICE 03/11/24 documented as of this encounter
--- OUTSIDE RECORDS SUMMARY | 2024-10-01 19:20 | XMS_ITS | Encounter Summary ---
Author Organization [facility] Address [address] [place] [address] Care Team Providers Care Curtain Cutter Name Role Phone Divina Ness MD Primary Care Provider + Encounter Details Date Type Department Care Team (Late Contact Info) Description 10/01/2024 MyChart Message Enc [address] [place] [address] Marivel Robison NP [address] [place] [address] Dizziness Social History Tobacco Use Types [...] Sex Assigned at Female 06/10/2024 11:08 AM STUDIO OPERATOR Legal Sex Female 5:01 PM CDT Gender Identity Female 09/30/2024 12:20 PM CDT Sexual Orientation Not on file documented as of this encounter Progress Notes * Anastasiia Sheikh MA - 10/01/2024 4:30 PM CDT Duplicate documented in this encounter Plan of Treatment Upcoming Encounters Date Type Department Care Team (Late Contact Info) Description 07/07/2025 10:30 AM STUDIO OPERATOR Office Visit [address] [place] [address], [place] [address] Divina Ness MD [address] [place] [address] documented as of this encounter Visit Diagnoses Not on filedocumented in this encounter Additional Health Concerns Infection Onset Date Last Indicated Resolved Time MRSA 12/26/2016 12/26/2016 documented as of this encounter Care Teams Curtain Cutter Relationship Specialty Start Date End Date Divina Ness MD [address] [place] [address] PCP - General FAMILY PRACTICE 03/11/24 documented as of this encounter
--- OUTSIDE RECORDS SUMMARY | 2024-10-01 19:20 | XMS_ITS | Encounter Summary ---
Author Organization [facility] Address [address] [place] [address] Care Team Providers Care Telecommunications Clerk Name Role Phone Divina Ness MD Primary [...] Sex Assigned at Female 06/10/2024 11:08 AM POWERHOUSE TENDER Legal Sex Female 5:01 PM CDT Gender Identity Female 09/30/2024 12:20 PM CDT Sexual Orientation Not on file documented as of this encounter Plan of Treatment Upcoming Encounters Date Type Department Care Team (Late st Contact Info) Description 07/07/2025 10:30 AM POWERHOUSE TENDER Office Visit [facility] Family Medicine [facility] [address] [place], [place] [phone] Divina Ness MD [address] [place] [address] documented as of this encounter Visit Diagnoses Not on filedocumented in this encounter Additional Health Concerns Infection Onset Date Last Indicated Resolved Time MRSA 12/26/2016 12/26/2016 documented as of this encounter Care Teams Telecommunications Clerk Relationship Specialty Start Date End Date Divina Ness MD [address] [place] [address] PCP - General FAMILY PRACTICE 03/11/24 documented as of this encounter
--- OUTSIDE RECORDS SUMMARY | 2024-10-01 19:20 | XMS_ITS | Clinical Summary ---
Author Organization [facility] Address Formerly [facility], 1926[id number] [place] [address] Care Team Providers Care Blanking Press Operator Name Role Phone Divina Bartholomew MD Primary [...] cyclobenzaprine. Assessment & Plan (06/24/2024 12:10 PM FISHER POT): Chronic. Continue combination meloxicam and cyclobenzaprine which did seem to help symptoms. Assessment & Plan (03/11/2024 10:44 AM CDT): Now chronic and not controlled. Trial gabapentin and provided titration schedule. Encouraged her to find physical therapy exercises online if she is not able to do them in person. Request an update if she would like to see a desktop support specialist or pain management. Essential hypertension 03/29/2019 [...] in the past. Has not met with SUPERVISOR FERTILIZ[employer] PROCESSING yet to discuss abnormal uterine bleeding. Assessment & Plan (06/24/2024 12:08 PM FISHER POT): Will check CBC and iron panel to confirm she is repleted. Strongly advised her to establish with [employer] to discuss options for abnormal uterine bleeding. Referral entered this time. Assessment & Plan (03/11/2024 10:42 AM CDT): Will repeat CBC and iron panel to determine if she requires an iron transfusion. Encouraged her to schedule with SUPERVISOR FERTIL[employer] PROCESSING to consider a Mirena IUD to manage [...] daily. Assessment & Plan (06/24/2024 12:07 PM FISHER POT): Not yet controlled. Increase Advair to 500-50 [...] Department Care Team Description 10/01/2024 Results Follow-Up [address] [place] [address] Marivel Robison NP TSH W/REFLEX, COMPREHENSIVE METABOLIC PANEL, FERRITIN, CBC W/DIFF AUTOMATED 10/01/2024 MyChart Message Enc [address] [place] [address] Divina Bartholomew MD Dizziness 10/01/2024 MyChart Message Enc [address] [place] [address] Marivel Robison NP Dizziness 09/30/2024 12:20 PM CDT Office Visit [address] [place] [address] Marivel Robison NP Dizziness/lightheaded ness (Patient presents [...] Sex Assigned at Female 06/10/2024 11:08 AM FISHER POT Legal Sex Female 5:01 PM CDT Gender [...] cm (5' 6 ) 06/24/2024 10:40 AM FISHER POT Body Mass Index 46 06/24/2024 10:40 AM FISHER POT Plan of Treatment Upcoming Encounters Date Type Department Care Team (Late st Contact Info) Description 07/07/2025 10:30 AM FISHER POT Office Visit [facility] Family Medicine - [place] [address] [facility] [address] [place] [phone] Divina Bartholomew MD [address] [place] [address] Health Maintenance Due Date Last Done Comments [...] , 03/08/2021, Additional history exists PHQ-2 (Physician [place]) Completed 06/24/2024 Meningococcal B Vaccine Aged Out [...] FAUSTINO ONEL DIGI Routine 05/01/2024 4:08 PM FISHER POT Screening mammogram for breast cancer CYTOPATH CERV/VAG THIN LAYER Routine 06/22/2023 4:00 PM FISHER POT COLOGUARD (EXACT SCIENCE) Routine 03/08/2023 4:47 PM CDT Screening for colon cancer HEPATITIS C ANTIBODY Routine 02/20/2023 12:58 PM CDT Encounter for hepatitis C screening test for low risk patient Health maintenance examination from Last 3 Months or Most Recently Relevant to Health Maintenance Results * TSH W/REFLEX (09/30/2024 12:52 PM CDT) TSH 0.573 0.358 - 3.740 uIU/ML 10/01/2024 10:53 AM CDT [facility] 09/30/2024 12:5 2 PM CDT us Marivel Robison WIRE SPIRAL BINDER LABORATORY Final Res ult [facility] [address] [place] [address], * (ABNORMAL) COMPREHENSIVE METABOLIC PANEL (09/30/2024 12:52 PM CDT) SODIUM S/P/B 140 136 - 145 MMOL/L 10/01/2024 10:53 AM CDT [facility] POTASSIUM S/P/B 4.7 3.5 - 5.1 MMOL/L 10/01/2024 10:53 AM CDT [facility] CHLORIDE S/P/B 105 98 - 107 MMOL/L 10/01/2024 10:53 AM CDT [facility] CO2 28.3 21 - 32 MMOL/L 10/01/2024 10:53 AM CDT [facility] GLUCOSE 86 70 - 99 MG/DL 10/01/2024 10:53 AM CDT [facility] BUN 20(H) 7 - 18 MG/DL 10/01/2024 10:53 AM CDT [facility] CREATININE S/P/B 0.98 0.55 - 1.02 MG/DL 10/01/2024 10:53 AM [facility] CALCIUM S/P/B 9.1 8.4 - 10.5 MG/DL 10/01/2024 10:53 AM [facility] BILIRUBIN TOTAL S/P/B 0.2 0.2 - 1.0 MG/DL 10/01/2024 10:53 AM [facility] ALKALINE PHOSPHATASE S/P/B 92 39 - 100 U/L 10/01/2024 10:53 AM T [facility] AST 12(L) 15 - 37 U/L 10/01/2024 10:53 AM [facility] ALT 16 14 - 59 U/L 10/01/2024 10:53 AM [facility] TOTAL PROTEIN S/P/B 6.8 6.4 - 8.2 G/DL 10/01/2024 10:53 AM [facility] ALBUMIN S/P/B 3.5 3.4 - 5.0 G/DL 10/01/2024 10:53 AM [facility] ANION GAP 6.7 5 - 15 MMOL/L 10/01/2024 10:53 AM [facility] Comment:REFERENCE RANGE NOT ESTABLISHED OSMOLALITY (CALC) 292 MOSM/KG 025 10:53 AM [facility] Comment:REFERENCE RANGE NOT ESTABLISHED GFR ESTIMATE 72(L) >90 ML/MIN/1. 73 M2 10/01/2024 10:53 AM [facility] GFR NOTES GFR REFERENCE S: 10/01/2024 10:53 AM [facility] Comment: THE ESTIMATED GFR IS [...] 12:5 2 PM CDT us Marivel Robison W[employer] SPIRAL BINDER LABORATORY Final Res ult [facility] [address] [place] [address], * (ABNORMAL) CBC W/DIFF AUTOMATED (09/30/2024 12:52 PM CDT) WBC 6.34 4.00 - 10.80 x10'3/uL 09/30/2024 7:50 PM CDT [facility] RBC 3.49(L) 4.10 - 5.40 x10'6/uL 09/30/2024 7:50 PM CDT [facility] HGB 10.6(L) 12.0 - 16.0 G/DL 09/30/2024 7:50 PM CDT [facility] HCT 33.8(L) 36.0 - 47.0 % 09/30/2024 7:50 PM CDT [facility] MCV 96.8 78.0 - 100.0 FL 09/30/2024 7:50 PM CDT [facility] MCH 30.4 27.0 - 31.0 PG 09/30/2024 7:50 PM CDT [facility] MCHC 31.4(L) 33.0 - 36.0 G/DL 09/30/2024 7:50 PM CDT [facility] RDW 14.6(H) 11.5 - 14.5 % 09/30/2024 7:50 PM CDT [facility] PLT 407(H) 150 - 350 x10'3/uL 09/30/2024 7:50 PM CDT [facility] MPV 10.8(H) 7.4 - 10.4 FL 09/30/2024 7:50 PM CDT [facility] DIFFERENTIAL TYPE AUTOMATED DIFFERENTIAL 09/30/2024 7:50 PM CDT [facility] NEUTROPHILS % 65.6 % 09/30/2024 7:50 PM CDT [facility] LYMPHOCYTES % 24.6 % 09/30/2024 7:50 PM CDT [facility] MONOCYTES % 6.8 % 09/30/2024 7:50 PM CDT [facility] EOSINOPHILS % 2.7 % 09/30/2024 7:50 PM CDT [facility] BASOPHILS % 0.3 % 09/30/2024 7:50 PM CDT [facility] IMMATURE GRANS % 0.0 % 09/30/2024 7:50 PM CDT [facility] ABS. NEUTROPHILS 4.16 1.60 - 8.30 x10'3/uL 09/30/2024 7:50 PM CDT [facility] ABS. LYMPHOCYTES 1.56 0.80 - 4.70 x10'3/uL 09/30/2024 7:50 PM CDT [facility] ABS. MONOCYTES 0.43 0.00 - 1.50 x10'3/uL 09/30/2024 7:50 PM CDT [facility] ABS. EOSINOPHILS 0.17 0.00 - 0.40 x10'3/uL 09/30/2024 7:50 PM CDT [facility] ABS. BASOPHILS 0.02 0.00 - 0.20 x10'3/uL 09/30/2024 7:50 PM CDT [facility] ABS. IMMATURE GRANULOCYTES 0.00 0.00 - 0.03 x10'3/uL 09/30/2024 7:50 PM CDT [facility] 09/30/2024 12:5 2 PM CDT Marivel Robison W[employer]ORATORY Final Res ult Performing Organization Address City/[facility]/ZIP Co de Phone Number [facility] [address] [place] [address], [place] [phone] * FERRITIN (09/30/2024 12:52 PM CDT) FERRITIN 39.0 8 - 252 NG/ML 10/01/2024 10:53 AM CDT [facility] 09/30/2024 12:5 2 PM CDT Marivel Robison W[employer] SP[employer] LABORATORY Final Res ult Performing Organization Address [facility] Co de Phone Number [place] [address] [place] [address], [place] [phone] * MG SCREENING W FAUSTINO ONEL DIGI (05/01/2024 4:08 PM FISHER POT) Anatomical Region Laterality Modality Breast Bilateral Mammography 05/01/2024 5:30 PM FISHER POT Impressions 05/01/2024 5:34 PM FISHER POT ===== IMPRESSION: ===== 1. No mammographic evidence of malignancy Assessment: ACR BI-RADS 2 - BENIGN FINDING(S) Recommendation: 1:Routine Screening Bilateral Comments: Ordered By: DIVINA BARTHOLOMEW Interpreted By: Carlos Bynum, 05/01/2024 5:30 PM Narrative 05/01/2024 5:34 PM FISHER POT [facility] [address] [place] [address] EXAMINATION: Digital bilateral screening mammogram with 3-D [...] Cytopath Cerv/Vag Thin Layer (06/22/2023 4:00 PM FISHER POT) CLINICAL INFORMATION: WELL WOMAN EXAM [place] Clinical Information: 06/11/23 REGULAR [place] Date of Last Pap NONE GIVEN [place] Previous Biopsy? NONE GIVEN [place] SOURCE (QST) Cervix, Endocervix [place] STATEMENT OF ADEQUACY: [place] Comment: Satisfactory for evaluation. Endocervical/transformation zone component present. PAP INTERPRETATION/RES ULTS Cytology Results: Negative for intraepithelial lesion or malignancy. [facility] Technologies[place] COMMENT: This Pap test has been evaluated with computer assisted technology. [facility] [employer] Technologies[place], [place] FLIGHT CREW TIME CLERK [facility] [place] Comment: BES, CT(ASCP) CT screening location: [place] [address] Administration HARRIET [place] [address] COMMENT: [place] Comment: EXPLANATORY NOTE: The Pap is [...] HPV INTERMEDIATE/HIGH RISK Not Detected NOT DETECTED On[facility] LUCMONTE MARY D Comment: Not Detected High Risk HPV types (16,18,31,33,35,39,45,51,52, 56,58,59,66,68) were not detected. Other HPV types which cause anogenital lesions may be present. The significance of the other types of HPV in malignant processes has not been established. Methodology: Real Time PCR 06/22/2023 4:00 PM FISHER POT 06/26/2023 9:53 AM FISHER POT Narrative [facility] - 06/29/2023 3:09 PM FISHER POT FASTING: UNKNOWN Resulting Agency Comment Performing Organization Information: Site ID: [id number] Name: [facility] Address: [address] [place] [address] Director: Alvaro Casillas M.D.,PhD Site ID: [id number] [facility] Address: [address] [place] [id number] Director: Marisela Turner Raya Hare WIRE SPIRAL BINDER PATHOLOGY/CYTOLOGY ORDERABLES F inal Result [facility] [address] [address], [place] [address] , * COLOGUARD (EXACT SCIENCE) (03/08/2023 4:47 PM CDT) COLOGUARD RESULT Negative Negative [employer] (CLIA #:[id number]) Comment: NEGATIVE TEST RESULT. A negative Cologuard [...] (Hugh Diaz al, N Engl J Med 2014;370(10):1283-3925) The normal value (reference range) for this assay is negative. COLOGUARD RE-SCREENING RECOMMENDATION: Periodic colorectal cancer screening is an important part of preventive healthcare for asymptomatic individuals at average risk for colorectal cancer. Following a negative Cologuard result, the [place] Cancer Society and U.S. Multi-Society Task Force screening guidelines recommend a Cologuard re-screening interval of 3 years. References: [place] [employer] Guideline for Colorectal Cancer Screening: https://www.cancer.org/cancer/ndtft-cxhtzu-ptjtrr/wunosdlmx-kdrjgjtaq-jndnflm/ac s-rec ommendations.html.; Matthew DK, Yana HATCH, Joan GuadalupeK, Colorectal Cancer Screening: Recommendations for Physicians and Patients from the U.S. Multi-Society Task Force on Colorectal Cancer Screening , Am J Gastroenterology 2017; 112:1830-4253. TEST DESCRIPTION: Composite algorithmic analysis of stool [...] colonoscopy. (Hugh Corona, N Engl J Med 2014;370(14):8607-2812.) Cologuard may produce a false negative or false positive result (no colorectal cancer or precancerous polyp present at colonoscopy follow up). A negative Cologuard test result does not guarantee the absence of CRC or advanced adenoma (pre-cancer). The current Cologuard screening interval is every 3 years. ([place] [employer] Society and U.S. Multi-Society Task Force). Cologuard performance data in a 10,000 patient pivotal study using colonoscopy as the reference method can be accessed at the following location: www.[employer].EveryScape/results. Additional description of the Cologuard test process, warnings and precautions can be found at www.cologuard.com. STOOL STOOL SPECIMEN / Unknown 03/08/2023 4:47 PM CDT 03/09/2023 4:25 PM CDT Raya Hare WIRE SPIRAL BINDER BODY FLUIDS AND STOOLS ORDERABL ES Final Result Performing Organization Address [facility] Co de Phone Number [employer] [address] [place] [phone], [employer] (CLIA #:[id number]) [address] [place] [address] * HEPATITIS C ANTIBODY ([facility] ONLY) (02/20/2023 12:58 PM CDT) HEPATITIS C AB NON-REACTI VE NON-REACT AN 02/20/2023 10:22 PM CDT [facility] Comment: ANTIBODIES TO HCV NOT DETECTED. DOES NOT EXCLUDE THE POSSIBILITY OF EXPOSURE TO HCV. 02/20/2023 12:5 8 PM CDT us Raya Hare NP LABORATORY Final Result Performing Organization Address City/[facility] Co de Phone Number [facility] [address] [place] [address], [phone] from Last 3 Months or Most Recently Relevant to Health Maintenance Additional Health Concerns Infection Onset Date Last Indicated MRSA 12/26/2016 12/26/2016 Insurance [facility] Care Teams Blanking Press Operator Relationship Specialty Start Date End Date Divina Bartholomew MD [address] [place] [address] PCP - General FAMILY PRACTICE 03/11/24
[2024-10-01 19:25] LABS: Troponin I < 0.012 ng/mL (0.000-0.034)
[2024-10-01 19:37] LABS: Add Urine Microscopic? YES; Appearance Urine Clear (Clear); Bacteria Urine 2+ /hpf; Bilirubin Urine Negative (Negative); Blood Urine Negative (Negative); Color Urine Yellow (Yellow); Glucose Urine UA Negative (Negative); Ketones Urine Trace mg/dL (Negative); Leukocyte Esterase Ur Negative LEU/UL (Negative); Nitrate Urine Negative (Negative); Non Pathogenic Casts 0-2; Protein Urine Trace mg/dL (Negative); RBC Urine 0-2 /hpf (0-2); Specific Grav Ur 1.028 (1.001-1.035); Squamous Epithelial Cell Urine Moderate /hpf (Few); pH Urine 5.5 (5.0-9.0)
[2024-10-01] MEDS: IPRATROPIUM 0.5 MG/ALBUTEROL SULFATE 2.5 MG AMPUL.NEB 3 ML 12 ML INHALATION (19:47)
[2024-10-01] MEDS: SODIUM CHLORIDE 0.9% IV 2,000 ML 999 ML IV CONT (20:14)
[2024-10-01] MEDS: MECLIZINE HCL 25 MG TABLET PO (20:15)
[2024-10-01] MEDS: MAGNESIUM SULF 2 GM/WATER 50ML 2 GM/50 ML BAG IVPB (20:15)
[2024-10-01] MEDS: diazePAM INJ (*CRX) 10 MG/2 ML SYRINGE 5 MG IV PUSH (20:15)
[2024-10-01] MEDS: dexAMETHasone SOD PHOS INJ 10 MG/ML 1 ML VIAL IV PUSH (20:16)
--- NOTE | 2024-10-01 21:19 | PC.NURSE ---
attempted to obtain ekg, patient shakey and unable to sit still for ekg
--- NOTE | 2024-10-01 21:24 | PC.NURSE ---
spoke with Dr. Mead about patient having shakiness after her breathing treatment completed, he stated to give her 30 minutes to calm down and try again.
[2024-10-02] VITALS (11 sets, daily range): BP systolic 145–148; BP diastolic 72–87; PULSE 76–100; RESP 16–24; TEMP 36.4–37; O2SAT 95–100; BMI 45.6
--- NOTE | 2024-10-02 | ECHO_ITS ---
Patient Info Name: Catrachita Choi Age: 49 years : 1975 Gender: Female Ht: 66 in Wt: 283 lbs BSA: 2.52 m2 HR: 72 bpm BP: 145 / 86 mmHg Heart Rhythm: Sinus Rhythm Technical Quality: Good Exam Date: 10/02/2024 3:27 PM Patient Status: I Admit Date: 10/02/2024 Exam Type: CA echo doppler w bubble study Complete two-dimensional, color flow and Doppler transthoracic echocardiogram is performed with agitated saline. Staff Referring Physician: Deonna Nguyễn Saw Boss: Linnette Wu Attending Provider: Aashish Tan Contrast/Agitated Saline Contrast/Ag. Saline: Agitated Saline Amount: 8.00 ml Summary 1. Agitated saline study did not reveal any dfhmx-vn-qbin shunt. 2. There is normal biventricular size and systolic function. 3. There are no significant valvular abnormalities in this study. Left Ventricle The left ventricle is normal in size and systolic function. There is concentric left ventricular remodeling. The left ventricular ejection fraction is visually estimated to be 60-65%. Right Ventricle The right ventricle is normal in size and systolic function. Left Atria The left atrium is normal size. Right Atria The right atrium is normal size. Atrial Septum Agitated saline study did not reveal any kowqp-cy-gply shunt. Aortic Valve The aortic valve is trileaflet and opens well. There is no aortic regurgitation. Pulmonic Valve The pulmonic valve is not well visualized. There is no significant pulmonic valve regurgitation by color Doppler. Mitral Valve The mitral valve leaflets are normal. Tricuspid Valve The tricuspid valve is grossly normal. There is trace tricuspid regurgitation. Pericardium/Pleural There is trivial pericardial effusion. Inferior Vena Cava Normal inferior vena cava with <50% collapse upon inspiration consistent with elevated right atrial pressure, 8 mmHg. Aorta The aortic root at the level of the sinus of Valsalva measures 3.1 cm in diameter. Left Ventricular Outflow Tract Name Value Normal LVOT 2D LVOT Diameter 2.0 cm LVOT Doppler LVOT Peak Velocity 103 cm/s LVOT Peak Gradient 4 mmHg LVOT Mean Gradient 2 mmHg LVOT VTI 23 cm LVOT VTI/AV VTI Ratio 0.8 LVOT Stroke Volume 73 ml LVOT CO 4.9 l/min LVOT CI 1.9 l/min/m2 Pulmonic Valve Name Value Normal RVOT Doppler RVOT Peak Velocity 51 cm/s RVOT Peak Gradient 1 mmHg PV Doppler PV Peak Velocity 78 cm/s PV Peak Gradient 2 mmHg Mitral Valve Name Value Normal MV Diastolic Function MV E Peak Velocity 72 cm/s MV A Peak Velocity 58 cm/s MV E/A 1.2 MV Decel Time (PW) 214 ms MV Annular TDI MV E/e' (Septal) 8.0 MV E/e' (Lateral) 7.0 MV E/e' (Average) 7.5 Tricuspid Valve Name Value Normal TV Regurgitation Doppler TR Peak Velocity 275 cm/s TR Peak Gradient 27 mmHg Estimated PAP/RSVP RA Pressure 8 mmHg <=5 PA Systolic Pressure 38 mmHg <36 RV Systolic Pressure 38 mmHg <36 TV Annular TDI TV Lateral July s' Velocity 20.0 cm/s >=9.5 Aortic Valve Name Value Normal AV Doppler AV Peak Velocity 136 cm/s AV Peak Gradient 7 mmHg AV Mean Gradient 4 mmHg AV VTI 30 cm AV Area (Cont Eq VTI) 2.4 cm2 >=3.0 AV Area (Cont Eq Mark) 2.4 cm2 AV DI (Mark) 0.76 AV Regurgitation 2D LVOT Area 3.1 cm2 Ventricles Name Value Normal LV Dimensions 2D/MM IVS Diastolic Thickness (2D) 1.3 cm 0.6-1.0 LVID Diastole (2D) 4.5 cm 3.8-5.2 LVIW Diastolic Thickness (2D) 1.3 cm 0.6-0.9 LVID Systole (2D) 2.9 cm 2.2-3.5 LVOT Diameter 2.0 cm LV Mass (2D Cubed) 221.94 g 67.00-162.00 LV Mass Index (2D Cubed) 88 g/m2 43-95 Relative Wall Thickness (2D) 0.60 <=0.42 LV Fractional Shortening/Ejection Fraction 2D/MM LV Fractional Shortening (2D) 36 % 27-45 LV EF (2D Teichholz) 65 % LV Diastolic Volume (4C MOD) 113 ml LV EF (4C MOD) 57 % LV Diastolic Volume (2C MOD) 139 ml LV EF (2C MOD) 68 % LV Diastolic Volume (BP MOD) 126 ml 46-106 LV Diastolic Volume Index (BP MOD) 50 ml/m2 29-61 LV Systolic Volume (BP MOD) 48 ml 14-42 LV Systolic Volume Index (BP MOD) 19 ml/m2 8-24 LV EF (BP MOD) 62 % 54-74 LV Diastolic Length (4C) 8.2 cm LV Systolic Length (4C) 7.1 cm LV Stroke Volume (4C MOD) 64 ml LV CO (BP MOD) 0.0 l/min LV CI (BP MOD) 0.0 l/min/m2 Atria Name Value Normal LA Dimensions LA Volume (4C A-L) 66 ml LA Volume (BP A-L) 71 ml RA Dimensions RA Systolic [place] Length (4C) 5.4 cm 2.2-2.8 RA Area (4C) 18.6 cm2 <=18.0 Report Signatures
--- NOTE | 2024-10-02 00:22 | ED_ITS ---
HPI - General Adult General Chief complaint: Dizziness Stated complaint: dizziness for 4 days Time Seen by Provider: 10/01/24 19:03 History of Present Illness HPI narrative: This is a 49 female presenting with dizziness x4 days. Related Data Home Medications ?Medication ?Instructions ?Recorded ?Confirmed ?Last Taken ?Type amlodipine 10 mg tablet 10 mg DAILY 05/24/22 05/24/22 Unknown History Allergies Allergy/AdvReac Type Severity Reaction Status Date / Time tramadol AdvReac Nausea and Verified 10/01/24 17:16 Vomiting [facility] Social History Social History Alcohol intake: never Course Vital Signs Vital signs: Vital Signs Temperature 98.2 F 10/01/24 17:13 Pulse Rate 75 10/01/24 17:13 Respiratory Rate 18 10/01/24 17:13 Blood Pressure 161/94 H 10/01/24 17:13 Pulse Oximetry 100 10/01/24 17:13 Oxygen Delivery Room Air 10/01/24 17:13 Temperature 98.2 F 10/01/24 17:13 Pulse Rate 97 10/01/24 23:16 Respiratory Rate 15 10/01/24 23:16 Blood Pressure 153/94 H 10/01/24 23:16 Pulse Oximetry 99 10/01/24 23:16 Oxygen Delivery Room Air 10/01/24 19:28 Medical Decision Making Vital Signs Vital Signs: Vital Signs Temperature 98.2 F 10/01/24 17:13 Pulse Rate 75 10/01/24 17:13 Respiratory Rate 18 10/01/24 17:13 Blood Pressure 161/94 H 10/01/24 17:13 Pulse Oximetry 100 10/01/24 17:13 Oxygen Delivery Room Air 10/01/24 17:13 Temperature 98.2 F 10/01/24 17:13 Pulse Rate 97 10/01/24 23:16 Respiratory Rate 15 10/01/24 23:16 Blood Pressure 153/94 H 10/01/24 23:16 Pulse Oximetry 99 10/01/24 23:16 Oxygen Delivery Room Air 10/01/24 19:28 Lab Data 10/01/24 18:50 10/01/24 18:50 Labs: Lab Results 10/01/24 10/01/24 Range/Units 18:50 18:55 WBC 8.3 (4.5-10.0) K/mm3 RBC 3.55 L (4.2-5.4) M/mm3 Hgb 10.7 L (12.0-15.0) g/dL Hct 34.3 L (37.0-47.0) % MCV 96.6 (80-100) fl MCH 30.1 (26-34) pg MCHC 31.2 L (32-36) g/dl RDW 14.7 H (11.5-14.5) % Plt Count 371 (150-375) k/mm3 MPV 10.0 (7.4-10.4) fl Immature Gran % (Auto) 0.4 (0-0.5) % Neut % (Auto) 65.1 (45.5-73.1) % Lymph % (Auto) 25.5 (18.3-44.2) % [place] % (Auto) 6.8 (2.6-8.5) % Eos % (Auto) 1.8 (0-4.4) % Baso % (Auto) 0.4 (0.2-1.2) % Lymph # (Auto) 2.11 (0.9-3.2) K/mm3 [place] # (Auto) 0.6 (0.1-0.6) K/mm3 Eos # (Auto) 0.2 (0-0.3) K/mm3 Baso # (Auto) 0.0 (0.0-0.1) K/mm3 Abs Immat Gran (auto) 0.03 (0.00-0.031) K/mm3 Absolute Neuts (auto) 5.4 (1.3-6.7) K/mm3 Absolute Nucleated RBC 0.000 (0.0-0.012) K/mm3 Nucleated RBC % 0.0 (0.0-0.2) % Sodium 139 (137-145) mmol/L Potassium 3.7 (3.4-5.0) mmol/L Chloride 108 H (98-107) mmol/L Carbon Dioxide 26 (22-30) mmol/L Anion Gap 5 (4-12) mmol/L BUN 16 (7-17) mg/dL Creatinine 0.93 (0.7-1.0) mg/dL Estim Creat Clear Calc 90 ml/min Estimated GFR > 60 (59 - ) Glucose 114 H (65-110) mg/dL Calcium 8.9 (8.4-10.2) mg/dL Magnesium 1.8 (1.6-2.3) mg/dL Total Bilirubin 0.3 (0.2-1.3) mg/dL AST 23 (14-36) U/L ALT 15 (6-35) U/L Alkaline Phosphatase 79 (38-126) U/L Troponin I < 0.012 (0.000-0.034) ng/mL Total Protein 7.0 (6.3-8.2) g/dL Albumin 4.1 (3.5-5.1) g/dL Urine Color Yellow (Yellow) Urine Appearance Clear (Clear) Urine pH 5.5 (5.0-9.0) Ur Specific [place] 1.028 (1.001-1.035) Urine Protein Trace (Negative) mg/dL Urine Glucose (UA) Negative (Negative) mg/dL Urine Ketones Trace H (Negative) mg/dL Ur Blood (Man) Negative (Negative) Urine Nitrate Negative (Negative) Urine Bilirubin Negative (Negative) Urine Urobilinogen 1.0 (<2.0) mg/dL Leukocyte Esterase Rfl Negative (Negative) SANTIAGO/UL Urine RBC 0-2 (0-2) /hpf Urine WBC 6-10 H (0-3) /hpf Ur Squamous Epith Cells Moderate (Few) /hpf Urine Bacteria 2+ H /hpf Urine Casts 0-2 POC Urine HCG, Qual Negative (Negative) Discharge Plan Discharge Patient Language: Barbadian Prescriptions: No Action amlodipine 10 mg tablet 10 mg DAILY Follow-up/Referrals: Ananya,Raya De Guzman APRN [Primary Care Provider] -
--- NOTE | 2024-10-02 01:56 | ADMGEN ---
This patient, Catrachita Choi, was admitted to Medical Room 251-01. Patient/family oriented to hospital policies and general routines including ID bracelet, bed and alarms, visiting hours, pain management, procedures, bathroom and other care routines, personal items, smoking policy, room service/diet, and visiting hours. Information on how to activate the Rapid Response Team has been discussed. Patient/Family are encouraged to report perceived risks to care and to ask questions if they do not understand what they are told or what they should do.
[2024-10-02] MEDS: ACETAMINOPHEN 325 MG TABLET 650 MG PO ×3 (02:57→18:12)
--- NOTE | 2024-10-02 04:38 | PM.IMHP ---
H&P: HPI History of Present Illness Date/Time: 10/02/24 04:38 Chief Complaint: Dizziness Narrative: Patient is a 49-year-old female with a past medical history of asthma, HTN, anemia, and is transfusion dependent visited the ED due to dizziness. Patient reports lately she has symptoms of dizziness, and she visited her PCP, who recommended meclizine. Lately, her symptoms have been aggravated, and she has visited the ED. She reports that her symptoms are hard to explain, like spinning in a room or lightheadedness. Pertinent ED labs: Hemoglobin 10.7, hematocrit 34.3, platelets 371, sodium 139, potassium 3.7, chloride 108, creatinine 0.[address]: Thyroid goiter. Scattered sub-6 mm pulmonary nodules require no additional evaluation unless the patient is at high risk; in this case, consider low-dose non-contrast CT of the chest in one year. Dilated central pulmonary arteries, as can be seen with pulmonary arterial hypertension. Head/neck is CTA: No acute intracranial process. Mucoperiosteal sinus disease, with possible acute sinusitis involving the left maxillary and ethmoid sinuses. No large vessel intracranial occlusion or high-grade intracranial stenosis. 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 4 mm hyperdensity associated with the anterior inferior sagittal sinus, possibly representing a small venous confluence. DVA, AVM, fenestration, or aneurysm not excluded. Consider a non-emergent but timely brain MRI without and with contrast, with MRA/MRV. No carotid or vertebral artery occlusion, dissection, or significant stenosis. 2.2 cm left thyroid nodule, recommend outpatient thyroid ultrasound for further characterization. Patient is admitted in the setting of dizziness/TIA. 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 Patient reports of having high blood pressure after giving her 1st child 20 years ago, and previously she was on three hypertensive medications, but later deescalated to one drug. 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 Patient tried OCPs and D/C, but her last option was given hysterectomy, which she did not want to do. TIA workup will be done, including echocardiogram with bubble study, and MRI. Neurology is consulted and appreciates the recommendation Review of Systems Review of Systems: All systems reviewed & are unremarkable except as noted in HPI and below PMFSH Family History Family History (Updated 10/02/24 @ 02:12 by Yesenia Byers RN) Other Unknown family medical history Social History Social History Smoking packs per day: 0.25 Smoking cigarettes per day: 5.0 Years smoked: 14 Smoking pack-years: 3.50 Smoking status: Former smoker Tobacco type: cigarettes Alcohol intake: never Substance use type: other Other substance usage details: edibles Last use: 09/27/24 Do You Feel Safe in your Home?: Yes Lack of Transportation: No Lack of Food: Never True Current Housing: I Have Housing Concerned About Future Housing: No Difficulty Paying Gas/Electric Bills: No Difficulty Paying for Meds: No Currently Unemployed: No Education: Associate Degree Difficulty w/ Childcare or Family Care: No Spiritual care concerns: No Meds Home Medications and Allergies Home Medications ?Medication ?Instructions ?Recorded ?Confirmed ?Type amlodipine 10 mg tablet 10 mg PO DAILY 05/24/22 10/02/24 History albuterol sulfate 90 mcg/actuation 2 puff inhalation Q4-6H PRN 10/02/24 10/02/24 History aerosol inhaler shortness of breath or wheezing clonazepam 0.5 mg tablet 0.5 mg PO DAILY PRN anxiety 10/02/24 10/02/24 History cyclobenzaprine 5 mg tablet 10 mg PO Q8H PRN muscle spasm 10/02/24 10/02/24 History fluticasone 250 mcg-salmeterol 50 1 inh inhalation Q12H 10/02/24 10/02/24 History mcg/dose blistr powdr for inhalation ([facility]ix[facility] Inhub) meclizine 12.5 mg tablet 12.5 mg PO DAILY 10/02/24 10/02/24 History meloxicam 7.5 mg tablet 7.5 mg PO DAILY 10/02/24 10/02/24 History paroxetine HCl 30 mg tablet 30 mg PO DAILY 10/02/24 10/02/24 History Allergies Allergy/AdvReac Type Severity Reaction Status Date / Time tramadol AdvReac Nausea and Verified 10/01/24 17:16 Vomiting Vital Signs Vital Signs - 24 hr 10/01/24 17:13 10/01/24 19:01 10/01/24 19:02 Temperature 98.2 F Pulse Rate 75 73 75 Respiratory Rate 18 21 H 22 H Blood Pressure 161/94 H 150/92 H Pulse Oximetry 100 100 100 Oxygen Delivery Room Air 10/01/24 19:15 10/01/24 19:16 10/01/24 19:26 Temperature Pulse Rate 72 86 87 Respiratory Rate 18 13 16 Blood Pressure 141/100 H 141/100 H Pulse Oximetry 100 98 100 Oxygen Delivery 10/01/24 19:28 10/01/24 19:30 10/01/24 19:31 Temperature Pulse Rate 76 64 Respiratory Rate 18 13 Blood Pressure 159/105 H Pulse Oximetry 100 100 Oxygen Delivery Room Air 10/01/24 19:45 10/01/24 19:46 10/01/24 19:53 Temperature Pulse Rate 69 73 69 Respiratory Rate 16 18 17 Blood Pressure 147/94 H Pulse Oximetry Oxygen Delivery 10/01/24 20:00 10/01/24 20:01 10/01/24 20:15 Temperature Pulse Rate 67 70 75 Respiratory Rate 17 15 19 Blood Pressure 158/87 H 140/95 H Pulse Oximetry 100 100 100 Oxygen Delivery 10/01/24 20:31 10/01/24 20:46 10/01/24 20:58 Temperature Pulse Rate 91 100 70 Respiratory Rate 22 H 22 H 18 Blood Pressure 139/76 140/87 Pulse Oximetry 100 100 Oxygen Delivery 10/01/24 21:31 10/01/24 21:46 10/01/24 23:10 Temperature Pulse Rate 100 108 H 94 Respiratory Rate 25 H 19 21 H Blood Pressure 136/80 141/89 H 136/90 Pulse Oximetry 100 100 99 Oxygen Delivery 10/01/24 23:16 10/02/24 02:09 10/02/24 02:22 Temperature 97.8 F Pulse Rate 97 90 Respiratory Rate 15 20 Blood Pressure 153/94 H 145/84 H Pulse Oximetry 99 98 Oxygen Delivery Room Air 10/02/24 02:46 Temperature Pulse Rate 88 Respiratory Rate Blood Pressure Pulse Oximetry Oxygen Delivery Exam Narrative: APPEARANCE: No apparent distress. Head: atraumatic. EYES: EOMI, NOSE: Atraumatic NECK: Trachea midline RESPIRATORY: No increased rate of breathing, speaking sentences, diffuse wheezing CARDIOVASCULAR: RRR, ABDOMINAL: Non-distended MUSCULOSKELETAl: No obvious deformities NEURO: Alert. Cranial nerves 2-12 grossly intact. Sensation light touch, motor function cerebellar function intact for 4 extremities. Gait exam was deferred. SKIN:: Warm, dry. Normal color PSYCHIATRIC: Normal affect H&P: Results Labs Labs: Short CBC 10/01/24 Range/Units 18:50 WBC 8.3 (4.5-10.0) K/mm3 Hgb 10.7 L (12.0-15.0) g/dL Hct 34.3 L (37.0-47.0) % Plt Count 371 (150-375) k/mm3 BMP 10/01/24 18:50 Sodium 139 Potassium 3.7 Chloride 108 H Carbon Dioxide 26 BUN 16 Creatinine 0.93 Glucose 114 H Calcium 8.9 Cardiac Enzymes 10/01/24 Range/Units 18:50 Troponin I < 0.012 (0.000-0.034) ng/mL Liver Function 10/01/24 Range/Units 18:50 Total Bilirubin 0.3 (0.2-1.3) mg/dL AST 23 (14-36) U/L ALT 15 (6-35) U/L Alkaline Phosphatase 79 (38-126) U/L Albumin 4.1 (3.5-5.1) g/dL Urine 10/01/24 Range/Units 18:55 Urine Color Yellow (Yellow) Urine Appearance Clear (Clear) Urine pH 5.5 (5.0-9.0) Ur Specific [place] 1.028 (1.001-1.035) Urine Protein Trace (Negative) mg/dL Urine Glucose (UA) Negative (Negative) mg/dL Assessment and Plan Assessment and plan (1) Abnormal computed tomography angiography (CTA): Code(s): R93.89 - Abnormal findings on diagnostic imaging of other specified body structures Status: Acute (2) Aneurysm, cerebral: Code(s): I67.1 - Cerebral aneurysm, nonruptured Status: Acute (3) Dizziness: Code(s): R42 - Dizziness and giddiness Status: Acute Plan CVA MRI Brain:Pending CTA neck:No acute intracranial process. Mucoperiosteal sinus disease, with possible acute sinusitis involving the left maxillary and ethmoid sinuses. No large vessel intracranial occlusion or high-grade intracranial stenosis. 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 4 mm hyperdensity associated with the anterior inferior sagittal sinus, possibly representing a small venous confluence. DVA, AVM, fenestration, or aneurysm not excluded. Consider nonemergent but timely MRI of the brain without and with contrast, with MRA/MRV. No carotid or vertebral artery occlusion, dissection, or significant stenosis. 2.2 cm left thyroid nodule, recommend outpatient thyroid ultrasound for further characterization. Strict BP control SBP <140/90 Freq neuro check and NIHS PT/OT recommendation NIHS 0 Echo Pending Bedside swallow to r/o aspiration aspirin and statin LDL goal less than 70 Patient needs to follow up with vascular surgeon in the long run preventing the major stroke. Neurology consulted awaiting recommendation Speech and swallow evaluation PT/OT eval HTN Amlodipine 10mg PO QD Anemia Chronic Transfusion dependent Monitor H and H Thyroid Nodule US Thyroid order TSH pending Pulmonary Nodule Repeat in 1 year DVT Prophylaxis: Lovenox 40mg SubQ Hospitalist MIPS Advance Care Plan I have confirmed that the patient's Advanced Care Plan is present, code status is documented, or surrogate decision maker is listed in patient medical record.: Yes Medication Reconciliation I have utilized all available resources to obtain, update and review the patients current medications (includes all prescriptions, OTC, herbals, cannabis, and nutritional supplements).: Yes
[2024-10-02 08:30] LABS: Basophils Percent Auto 0.2 % (0.2-1.2); Hematocrit 35.9 % (37.0-47.0); Hemoglobin 11.2 g/dL (12.0-15.0); Immature Granulocyte Absolute 0.12 K/mm3 (0.00-0.031); Immature Granulocyte Percent A 1.9 % (0-0.5); Lymphocytes Absolute Auto 0.52 K/mm3 (0.9-3.2); Lymphocytes Percent Auto 8.1 % (18.3-44.2); Mean Corpuscular HGB Conc 31.2 g/dl (32-36); Mean Corpuscular Hemoglobin 30.2 pg (26-34); Mean Corpuscular Volume 96.8 fl (80-100); Mean Platelet Volume 10.5 fl (7.4-10.4); Monocytes Absolute Auto 0.1 K/mm3 (0.1-0.6); Monocytes Percent Auto 1.7 % (2.6-8.5); Neutrophils Absolute Auto 5.7 K/mm3 (1.3-6.7); Neutrophils Percent Auto 88.1 % (45.5-73.1); Platelet Count Result 403 k/mm3 (150-375); Red Blood Count 3.71 M/mm3 (4.2-5.4); Red Cell Distribution Width 14.7 % (11.5-14.5); White Blood Count 6.5 K/mm3 (4.5-10.0)
[2024-10-02 08:32] LABS: Alanine Aminotransferase 19 U/L (6-35); Albumin Level 4.4 g/dL (3.5-5.1); Alkaline Phosphatase 95 U/L (38-126); Anion Gap 9 mmol/L (4-12); Aspartate Amino Transferase 34 U/L (14-36); Bilirubin,Total 0.3 mg/dL (0.2-1.3); Blood Urea Nitrogen 12 mg/dL (7-17); Calcium 9.3 mg/dL (8.4-10.2); Carbon Dioxide 21 mmol/L (22-30); Chloride 109 mmol/L (98-107); Estimated CRCL calculation 108 ml/min; Estimated Glomerular Filt Rate > 60; Glucose 148 mg/dL (65-110); Potassium 4.5 mmol/L (3.4-5.0); Sodium 139 mmol/L (137-145)
--- NOTE | 2024-10-02 08:33 | PM.IMPN ---
Progress Note: A&P Assessment and Plan (1) Abnormal computed tomography angiography (CTA): Code(s): R93.89 - Abnormal findings on diagnostic imaging of other specified body structures Status: Acute (2) Aneurysm, cerebral: Code(s): I67.1 - Cerebral aneurysm, nonruptured Status: Acute (3) Dizziness: Code(s): R42 - Dizziness and giddiness Status: Acute Plan CVA/TIA MRI Brain: WDL brain, per pt anxious/closterphobic = Ativan 0.5mg IV ordered -Recs from neuro for an MRA/MRV for further delineation, ordered on 10/02 CTA neck: No acute intracranial process. Mucoperiosteal sinus disease, with possible acute sinusitis involving the left maxillary and ethmoid sinuses. No large vessel intracranial occlusion or high-grade intracranial stenosis. 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 4 mm hyperdensity associated with the anterior inferior sagittal sinus, possibly representing a small venous confluence. DVA, AVM, fenestration, or aneurysm not excluded. Consider nonemergent but timely MRI of the brain without and with contrast, with MRA/MRV. No carotid or vertebral artery occlusion, dissection, or significant stenosis. 2.2 cm left thyroid nodule, recommend outpatient thyroid ultrasound for further characterization. Strict BP control SBP <140/90 - amlodipine 10mg daily Freq neuro check and NIHS PT/OT recommendation NIHS 0 Echo Pending Bedside swallow to r/o aspiration pending aspirin and statin LDL goal less than 70 -->Pending lipid panel 5/15 AM Patient needs to follow up with vascular surgeon in the long run preventing the major stroke. -->[facility] consulted here and recommended vascular w/u outpt due to them not doing any vascular Dr. Ignacio [phone] Neurology consulted, recs: 1. dizziness 2 incidental finding of 3mm left anterior cerebral artery aneurysm which not at the level of surgical intervention but she definitely need to be seen by the neurosurgical service for the ongoing follow-up if our neurosurgical service do not deal with the aneurysm she can be referred to the neurosurgical service as an outpatient. As per the radiologist recommendations MRA a MRV can be carried out for the further delineation. 2. 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 Thyroid nodule for which she will require the follow-u.p Speech and swallow evaluation PT/OT eval HTN Amlodipine 10mg PO QD Q4 hr VS Anemia Chronic Transfusion dependent Last iron infusion Mar & Apr 2024 Reports being followed by PCP and heme for this on no real schedule, she reports some non-compliance monitor H and H -0630 h/h stable, hgb 11.2 Thyroid Nodule US Thyroid order - per rads, recs for outpt - re-entered this order due to pt preference to get it performed inpatient TSH - 0.23, T4 & T3 WDL Pulmonary Nodule Repeat in 1 year - LDCT via PCP DVT Prophylaxis: Lovenox 40mg SubQ Subjective Date/time seen: 10/02/24 1018 Interval history: Patient is a 49-year-old female with a past medical history of asthma, HTN, and anemia (transfusion and iron infusion dependent in the past - most recently, iron infusions in Mar and Apr). patient reports to the emergency department with symptoms of dizziness, she visited her primary care provider who diagnosed her with vertigo and recommended meclizine as well as performed the Licha maneuver without success in office. Upon examination today patient reports that meclizine was started here in the emergency department and since she has been taking it, reports mild relief. She describes her symptoms as spinning or lightheadedness. Patient denies nausea vomiting. Patient admitted for TIA workup vs vertigo. Pending neurology consult, echocardiogram with bubble study, bedside swallow, MRI of the brain (Ativan for counterphobia). Also pending thyroid ultrasound as goiter was revealed on her CT scan. Pt reports that she has had x3 family members with a hx of brain aneurysm, x3 ruptured, x2 survived (Aunt x2, distant cousin). Review of Systems Review of Systems: All systems reviewed & are unremarkable except as noted in HPI and below Constitutional: Comments: Dizziness Exam Const: General: comfortable and no acute distress Other: Obese. HENMT: Ears: TM's normal bilaterally Face/Nose/Sinus: Normal nares present Mouth: Yes moist mucous membranes Eyes: General: appearance normal, both eyes and all related structures Sclera: sclerae normal Neck: Neck: supple and no JVD Carotids: bruit Resp: Effort & Inspection: normal respiratory effort Auscultation: clear to auscultation bilaterally Cardio: Rate: regular rate Rhythm: regular rhythm GI: Inspection: non-distended Auscultation: normal bowel sounds Skin: General skin exam: normal color and no rashes or lesions noted Wounds: no wounds Neuro: Speech: normal speech Motor exam (neuro): 5/5 motor strength present throughout and Normal motor muscle tone present throughout Sensory Exam: normal sensation Extrem: General: normal to inspection Psych: Mental Status: mental status grossly normal Affect: normal affect Objective Data Vital Signs Vital Signs: Vital Signs - 24 hr 10/01/24 17:13 10/01/24 19:01 10/01/24 19:02 Temperature 98.2 F Pulse Rate 75 73 75 Respiratory Rate 18 21 H 22 H Blood Pressure 161/94 H 150/92 H Pulse Oximetry 100 100 100 Oxygen Delivery Room Air 10/01/24 19:15 10/01/24 19:16 10/01/24 19:26 Temperature Pulse Rate 72 86 87 Respiratory Rate 18 13 16 Blood Pressure 141/100 H 141/100 H Pulse Oximetry 100 98 100 Oxygen Delivery 10/01/24 19:28 10/01/24 19:30 10/01/24 19:31 Temperature Pulse Rate 76 64 Respiratory Rate 18 13 Blood Pressure 159/105 H Pulse Oximetry 100 100 Oxygen Delivery Room Air 10/01/24 19:45 10/01/24 19:46 10/01/24 19:53 Temperature Pulse Rate 69 73 69 Respiratory Rate 16 18 17 Blood Pressure 147/94 H Pulse Oximetry Oxygen Delivery 10/01/24 20:00 10/01/24 20:01 10/01/24 20:15 Temperature Pulse Rate 67 70 75 Respiratory Rate 17 15 19 Blood Pressure 158/87 H 140/95 H Pulse Oximetry 100 100 100 Oxygen Delivery 10/01/24 20:31 10/01/24 20:46 10/01/24 20:58 Temperature Pulse Rate 91 100 70 Respiratory Rate 22 H 22 H 18 Blood Pressure 139/76 140/87 Pulse Oximetry 100 100 Oxygen Delivery 10/01/24 21:31 10/01/24 21:46 10/01/24 23:10 Temperature Pulse Rate 100 108 H 94 Respiratory Rate 25 H 19 21 H Blood Pressure 136/80 141/89 H 136/90 Pulse Oximetry 100 100 99 Oxygen Delivery 10/01/24 23:16 10/02/24 02:09 10/02/24 02:22 Temperature 97.8 F Pulse Rate 97 90 Respiratory Rate 15 20 Blood Pressure 153/94 H 145/84 H Pulse Oximetry 99 98 Oxygen Delivery Room Air 10/02/24 02:46 10/02/24 04:00 10/02/24 05:05 Temperature 97.6 F Pulse Rate 88 76 88 Respiratory Rate 24 H Blood Pressure 145/86 H Pulse Oximetry 95 Oxygen Delivery Intake/Output Intake/Output: Intake & Output 09/29/24 09/30/24 10/01/24 10/02/24 23:59 23:59 23:59 23:59 Intake Total 2049 Balance 2049 Meds/Results Medications: Active Medications Generic Name Dose Route Start Last Admin Trade Name Freq PRN Reason Stop Dose Admin Albuterol 2 puff 10/02/24 05:25 Albuterol Sulfate (*Sp) Aerosol 1 Puff INHALATION Q4-6H PRN shortness of breath or wheezing Amlodipine Besylate 10 mg 10/02/24 09:00 Amlodipine Besylate 10 Mg Tablet PO DAILY [facility] Clonazepam 0.5 mg 10/02/24 05:25 Clonazepam (*Crx) 0.5 Mg Tablet PO DAILY PRN anxiety Cyclobenzaprine HCl 10 mg 10/02/24 05:25 Cyclobenzaprine Hcl 10 Mg Tablet PO Q8H PRN muscle spasm Enoxaparin Sodium 40 mg 10/02/24 09:00 Enoxaparin 40 Mg/0.4 Ml Syringe SUB-Q DAILY [facility] Meclizine HCl 12.5 mg 10/02/24 09:00 Meclizine Hcl 12.5 Mg Tablet PO DAILY [facility] Paroxetine HCl 30 mg 10/02/24 09:00 Paroxetine 10 Mg Tablet PO DAILY [facility] Perflutren Lipid Microsphere 0 ml 10/02/24 05:32 Perflutren Lipid Microspheres 1.5 Ml Vial Diluted To 10 Ml Total Volume IV PUSH 10/05/24 05:32 ONCE PRN adequate visualization Protocol Fluticasone/Salmeterol 2 puff 10/02/24 08:00 Fluticasone/Salmeterol 115-21 Mcg Inhaler 1 Puff INHALATION Q12HRT [facility] Radiology Results: ITS Impressions Chest X-Ray 10/01/24 19:19 IMPRESSION: No acute cardiopulmonary pathology Chest CT 10/01/24 23:16 IMPRESSION: Thyroid goiter. Scattered sub-6 mm pulmonary nodules, which require no additional evaluation unless the patient is at high risk, in which case consider low-dose noncontrast CT of the chest in one year. Dilated central pulmonary arteries as can be seen with pulmonary arterial hypertension. Head/Neck CTA 10/01/24 23:32 IMPRESSION: No acute intracranial process. Mucoperiosteal sinus disease, with possible acute sinusitis involving the left maxillary and ethmoid sinuses. No large vessel intracranial occlusion or high-grade intracranial stenosis. 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 4 mm hyperdensity associated with the anterior inferior sagittal sinus, possibly representing a small venous confluence. DVA, AVM, fenestration, or aneurysm not excluded. Consider nonemergent but timely MRI of the brain without and with contrast, with MRA/MRV. No carotid or vertebral artery occlusion, dissection, or significant stenosis. 2.2 cm left thyroid nodule, recommend outpatient thyroid ultrasound for further characterization. Labs Labs: Laboratory Results - last 24 hr 10/01/24 10/01/24 10/02/24 18:50 18:55 06:36 WBC 8.3 RBC 3.55 L Hgb 10.7 L Hct 34.3 L MCV 96.6 MCH 30.1 MCHC 31.2 L RDW 14.7 H Plt Count 371 MPV 10.0 Immature Gran % (Auto) 0.4 Neut % (Auto) 65.1 Lymph % (Auto) 25.5 [place] % (Auto) 6.8 Eos % (Auto) 1.8 Baso % (Auto) 0.4 Lymph # (Auto) 2.11 [place] # (Auto) 0.6 Eos # (Auto) 0.2 Baso # (Auto) 0.0 Abs Immat Gran (auto) 0.03 Absolute Neuts (auto) 5.4 Absolute Nucleated RBC 0.000 Nucleated RBC % 0.0 Sodium 139 139 Potassium 3.7 4.5 Chloride 108 H 109 H Carbon Dioxide 26 21 L Anion Gap 5 9 BUN 16 12 Creatinine 0.93 0.77 Estim Creat Clear Calc 90 108 Estimated GFR > 60 > 60 Glucose 114 H 148 H Calcium 8.9 9.3 Magnesium 1.8 Total Bilirubin 0.3 0.3 AST 23 34 ALT 15 19 Alkaline Phosphatase 79 95 Troponin I < 0.012 Total Protein 7.0 8.0 Albumin 4.1 4.4 TSH (Reflex) 0.230 L Urine Color Yellow Urine Appearance Clear Urine pH 5.5 Ur Specific [place] 1.028 Urine Protein Trace Urine Glucose (UA) Negative Urine Ketones Trace H Ur Blood (Man) Negative Urine Nitrate Negative Urine Bilirubin Negative Urine Urobilinogen 1.0 Leukocyte Esterase Rfl Negative Urine RBC 0-2 Urine WBC 6-10 H Ur Squamous Epith Cells Moderate Urine Bacteria 2+ H Urine Casts 0-2 POC Urine HCG, Qual Negative Quality VTE Prophylaxis VTE prophylaxis: pharmacologic ordered
--- NOTE | 2024-10-02 08:44 | P.CDI_ITS ---
CDI Query Clarification Request Patient with a BMI of 45.7 please provide a diagnosis to accompany this finding: * Overweight * Obesity * Morbid Obesity * Other/Unknown <Leni Mcguire RN - Last Filed: 10/02/24 08:45> Patient with a BMI of 45.7 please provide a diagnosis to accompany this finding: * Morbid Obesity <Deonna Nguyễn APRN - Last Filed: 10/02/24 16:50>
--- NOTE | 2024-10-02 08:44 | WPDCDIQUERY2 ---
CDI Query Clarification Request Patient with a BMI of 45.7 please provide a diagnosis to accompany this finding: Overweight Obesity Morbid Obesity Other/Unknown <Leni Mcguire RN - Last Filed: 10/02/24 08:45> Patient with a BMI of 45.7 please provide a diagnosis to accompany this finding: Morbid Obesity <Deonna Nguyễn APRN - Last Filed: 10/02/24 16:50>
[2024-10-02 08:51] LABS: Free T4 Free Thyroxine Reflex 1.19 ng/dL (0.78-2.19)
[2024-10-02] MEDS: FLUTICASONE/SALMETEROL 115-21 MCG INHALER 1 PUFF 2 PUFF INHALATION ×2 (08:51→21:50)
[2024-10-02] MEDS: PARoxetine 10 MG TABLET 30 MG PO (09:11)
[2024-10-02 09:12] LABS: Platelet Estimate Slightly Increased (Adequate); Schistocytes Rare
[2024-10-02] MEDS: MECLIZINE HCL 12.5 MG TABLET PO (09:12)
[2024-10-02] MEDS: ENOXAPARIN 40 MG/0.4 ML SYRINGE SUB-Q (09:12)
[2024-10-02] MEDS: amLODIPine BESYLATE 10 MG TABLET PO (09:12)
[2024-10-02 09:16] LABS: Anisocytosis 1+
[2024-10-02 11:47] LABS: Total Triiodothyronine (T3) 1.35 NG/ML (0.97-1.69)
--- NOTE | 2024-10-02 12:02 | WPDNEURCNPN ---
Assessment and Plan Assessment and plan (1) Aneurysm, cerebral: Code(s): I67.1 - Cerebral aneurysm, nonruptured Status: Acute (2) Dizziness: Code(s): R42 - Dizziness and giddiness Status: Acute Plan 1. dizziness 2 incidental finding of 3mm left anterior cerebral artery aneurysm which not at the level of surgical intervention but she definitely need to be seen by the neurosurgical service for the ongoing follow-up if our neurosurgical service do not deal with the aneurysm she can be referred to the neurosurgical service as an outpatient. As per the radiologist recommendations MRA a MRV can be carried out for the further delineation. 2. 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 Thyroid nodule for which she will require the follow-u.p Consult date: 10/02/24 HPI: Catrachita Choi is a 49 year old female Admitted to the hospital through the emergency with the complaints of dizziness of few days duration, described as spinning of the room with the impending sensation of passing out ,symptomatology specifically getting worsened when going from sitting to standing position, she had been seen by the family physician in the office ,as the symptomatology persisted she came to the emergency room , she gave no history of any other associated symptomatology, she has been taking amlodipine 10mg daily clonazepam 0.5mg p.o. daily p.r.n., meloxicam 7.5mg daily paroxetine 30mg daily, and she is documented to be allergic to tramadol. On initial exam in the emergency room she was found to have no focal neurological deficit ,her vital signs were with blood pressure 161/94 otherwise normal, CBC was normal though her hemoglobin was 10.7 BMP was normal and so as the master scan. UA was normal, CTA of the head and neck revealed 3mm left anterior cerebral artery aneurysm at the level of the anterior communicating artery, 4mm hyperdensity associated with the anterior inferior sagittal sinus raising the possibility of small venous confluence AVM and 2.2cm left thyroid nodule. Chest CT scan has documented thyroid goiter and 6mm pulmonary nodule, Review of Systems Review of Systems: All systems reviewed & are unremarkable except as noted in HPI and below PMFSH Family History Family History Other Unknown family medical history Social History Social History Smoking packs per day: 0.25 Smoking cigarettes per day: 5.0 Years smoked: 14 Smoking pack-years: 3.50 Smoking status: Former smoker Tobacco type: cigarettes Alcohol intake: never Substance use type: other Other substance usage details: edibles Last use: 09/27/24 Do You Feel Safe in your Home?: Yes Lack of Transportation: No Lack of Food: Never True Current Housing: I Have Housing Concerned About Future Housing: No Difficulty Paying Gas/Electric Bills: No Difficulty Paying for Meds: No Currently Unemployed: No Education: Associate Degree Difficulty w/ Childcare or Family Care: No Spiritual care concerns: No Meds Home Medications and Allergies Home Medications ?Medication ?Instructions ?Recorded ?Confirmed ?Type amlodipine 10 mg tablet 10 mg PO DAILY 05/24/22 10/02/24 History albuterol sulfate 90 mcg/actuation 2 puff inhalation Q4-6H PRN 10/02/24 10/02/24 History aerosol inhaler shortness of breath or wheezing clonazepam 0.5 mg tablet 0.5 mg PO DAILY PRN anxiety 10/02/24 10/02/24 History cyclobenzaprine 5 mg tablet 10 mg PO Q8H PRN muscle spasm 10/02/24 10/02/24 History fluticasone 250 mcg-salmeterol 50 1 inh inhalation Q12H 10/02/24 10/02/24 History mcg/dose blistr powdr for inhalation ([facility] Inhub) meclizine 12.5 mg tablet 12.5 mg PO DAILY 10/02/24 10/02/24 History meloxicam 7.5 mg tablet 7.5 mg PO DAILY 10/02/24 10/02/24 History paroxetine HCl 30 mg tablet 30 mg PO DAILY 10/02/24 10/02/24 History Allergies Allergy/AdvReac Type Severity Reaction Status Date / Time tramadol AdvReac Nausea and Verified 10/01/24 17:16 Vomiting Vital Signs Vital Signs - 24 hr 10/01/24 17:13 10/01/24 19:01 10/01/24 19:02 Temperature 36.8 C Pulse Rate 75 73 75 Respiratory Rate 18 21 H 22 H Blood Pressure 161/94 H 150/92 H Pulse Oximetry 100 100 100 Oxygen Delivery Room Air 10/01/24 19:15 10/01/24 19:16 10/01/24 19:26 Temperature Pulse Rate 72 86 87 Respiratory Rate 18 13 16 Blood Pressure 141/100 H 141/100 H Pulse Oximetry 100 98 100 Oxygen Delivery 10/01/24 19:28 10/01/24 19:30 10/01/24 19:31 Temperature Pulse Rate 76 64 Respiratory Rate 18 13 Blood Pressure 159/105 H Pulse Oximetry 100 100 Oxygen Delivery Room Air 10/01/24 19:45 10/01/24 19:46 10/01/24 19:53 Temperature Pulse Rate 69 73 69 Respiratory Rate 16 18 17 Blood Pressure 147/94 H Pulse Oximetry Oxygen Delivery 10/01/24 20:00 10/01/24 20:01 10/01/24 20:15 Temperature Pulse Rate 67 70 75 Respiratory Rate 17 15 19 Blood Pressure 158/87 H 140/95 H Pulse Oximetry 100 100 100 Oxygen Delivery 10/01/24 20:31 10/01/24 20:46 10/01/24 20:58 Temperature Pulse Rate 91 100 70 Respiratory Rate 22 H 22 H 18 Blood Pressure 139/76 140/87 Pulse Oximetry 100 100 Oxygen Delivery 10/01/24 21:31 10/01/24 21:46 10/01/24 23:10 Temperature Pulse Rate 100 108 H 94 Respiratory Rate 25 H 19 21 H Blood Pressure 136/80 141/89 H 136/90 Pulse Oximetry 100 100 99 Oxygen Delivery 10/01/24 23:16 10/02/24 02:09 10/02/24 02:22 Temperature 36.6 C Pulse Rate 97 90 Respiratory Rate 15 20 Blood Pressure 153/94 H 145/84 H Pulse Oximetry 99 98 Oxygen Delivery Room Air 10/02/24 02:46 10/02/24 04:00 10/02/24 05:05 Temperature 36.4 C Pulse Rate 88 76 88 Respiratory Rate 24 H Blood Pressure 145/86 H Pulse Oximetry 95 Oxygen Delivery 10/02/24 09:15 Temperature Pulse Rate Respiratory Rate Blood Pressure Pulse Oximetry Oxygen Delivery Room Air Exam Narrative: revealed her to be awake alert cooperative in no obvious acute distress, head normocephalic with no bruit, ear nose throat examination normal, neck supple with no bruit, no lymphadenopathy, heart regular with no murmur, lungs clear to auscultation no rhonchi or crepitation, abdomen is soft nontender, neurologically she is awake alert oriented x3 his speech not dysphasic not dysarthric not dysphonic pupils round regular feels the vision full extraocular movements full face symmetrical tongue midline motor examination revealed her to have normal strength and tone reflexes symmetrical plantars are downgoing there is no evidence of gross sensory or cerebellar deficit. Results Labs 10/02/24 06:36 10/02/24 06:36 Labs: Short CBC 10/01/24 10/02/24 Range/Units 18:50 06:36 WBC 8.3 6.5 (4.5-10.0) K/mm3 Hgb 10.7 L 11.2 L (12.0-15.0) g/dL Hct 34.3 L 35.9 L (37.0-47.0) % Plt Count 371 403 H (150-375) k/mm3 BMP 10/01/24 10/02/24 18:50 06:36 Sodium 139 139 Potassium 3.7 4.5 Chloride 108 H 109 H Carbon Dioxide 26 21 L BUN 16 12 Creatinine 0.93 0.77 Glucose 114 H 148 H Calcium 8.9 9.3 Cardiac Enzymes 10/01/24 Range/Units 18:50 Troponin I < 0.012 (0.000-0.034) ng/mL Liver Function 10/01/24 10/02/24 Range/Units 18:50 06:36 Total Bilirubin 0.3 0.3 (0.2-1.3) mg/dL AST 23 34 (14-36) U/L ALT 15 19 (6-35) U/L Alkaline Phosphatase 79 95 (38-126) U/L Albumin 4.1 4.4 (3.5-5.1) g/dL Urine 10/01/24 Range/Units 18:55 Urine Color Yellow (Yellow) Urine Appearance Clear (Clear) Urine pH 5.5 (5.0-9.0) Ur Specific [place] 1.028 (1.001-1.035) Urine Protein Trace (Negative) mg/dL Urine Glucose (UA) Negative (Negative) mg/dL
[2024-10-02] MEDS: LORazepam INJ (*CRX) 2 MG/ML VIAL 0.5 MG IM (13:00)
[2024-10-03] VITALS (12 sets, daily range): BP systolic 126–160; BP diastolic 76–100; PULSE 61–96; RESP 16–20; TEMP 36.3–36.8; O2SAT 96–100
[2024-10-03 05:05] LABS: Cholesterol 183 mg/dL (0-200); HDL Direct 48 mg/dL; Triglycerides 70 mg/dL (<150)
[2024-10-03 05:16] LABS: LDL Cholesterol Direct 86 mg/dL
[2024-10-03] MEDS: MECLIZINE HCL 12.5 MG TABLET PO (07:43)
[2024-10-03] MEDS: amLODIPine BESYLATE 10 MG TABLET PO (07:43)
[2024-10-03] MEDS: PARoxetine 10 MG TABLET 30 MG PO (07:43)
[2024-10-03] MEDS: ENOXAPARIN 40 MG/0.4 ML SYRINGE SUB-Q (07:50)
[2024-10-03] MEDS: LORazepam INJ (*CRX) 2 MG/ML VIAL 0.5 MG IV PUSH (07:51)
--- NOTE | 2024-10-03 07:59 | P.PNIM_ITS ---
Progress Note: A&P Assessment and Plan (1) Abnormal computed tomography angiography (CTA): Code(s): R93.89 - Abnormal findings on diagnostic imaging of other specified body structures Status: Acute (2) Aneurysm, cerebral: Code(s): I67.1 - Cerebral aneurysm, nonruptured Status: Acute (3) Dizziness: Code(s): R42 - Dizziness and giddiness Status: Acute (4) Morbid obesity: Code(s): E66.01 - Morbid (severe) obesity due to excess calories Status: Acute Plan CVA/TIA CTA neck: No acute intracranial process. Mucoperiosteal sinus disease, with possible acute sinusitis involving the left maxillary and ethmoid sinuses. No large vessel intracranial occlusion or high-grade intracranial stenosis. 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 4 mm hyperdensity associated with the anterior inferior sagittal sinus, possibly representing a small venous confluence. DVA, AVM, fenestration, or aneurysm not excluded. Consider nonemergent but timely MRI of the brain without and with contrast, with MRA/MRV. No carotid or vertebral artery occlusion, dissection, or significant stenosis. 2.2 cm left thyroid nodule, recommend outpatient thyroid ultrasound for further characterization. Strict BP control SBP <140/90 - amlodipine 10mg daily Freq neuro check and NIHSS NIHSS 0 MRI Brain: WDL brain, per pt anxious/claustrophobic = Ativan 0.5mg IV ordered -Recs from neuro for an MRA/MRV for further delineation, ordered on 10/02 MRA brain: IMPRESSION: 1. Redemonstration of a 3 mm saccular aneurysm arising at the junction of the anterior cerebral and anterior communicating arteries. Otherwise unremarkable brain MR angiogram. -Per radiologist, MRV not needed due to CT and MRA being obtained. Echo: Summary 1. Agitated saline study did not reveal any [id number] shunt. 2. There is normal biventricular size and systolic function. 3. There are no significant valvular abnormalities in this study. The left ventricular ejection fraction is visually estimated to be 60-65%. Bedside swallow to r/o aspiration: WDL aspirin and statin -->LDL goal less than 70 - lipid panel 10/03 yielding LDL of 86, will start on mod statin and ASA 81mg at D/C Patient needs to follow up with vascular surgeon in the long run preventing the major stroke. -->NSURG consulted here and recommended vascular w/u outpt due to them not doing any vascular Dr. Ignacio [phone] -Pending neuro consultation on 10/04 for recs for TIA since still symptomatic with dizziness -Hopeful for D/C tomorrow with PT for vertigo therapy Neurology consulted, recs from 10/02: 1. dizziness 2 incidental finding of 3mm left anterior cerebral artery aneurysm which not at the level of surgical intervention but she definitely need to be seen by the neurosurgical service for the ongoing follow-up if our neurosurgical service do not deal with the aneurysm she can be referred to the neurosurgical service as an outpatient. As per the radiologist recommendations MRA a MRV can be carried out for the further delineation. 2. 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 Thyroid Nodule US Thyroid order - per rads, recs for outpt - re-entered this order due to pt pr eference to get it performed inpatient TSH - 0.23, T4 & T3 WDL US thyroid yielded 1. Complex 2.9 cm left thyroid mass, TR 4. Ultrasound-guided fine-needle aspiration biopsy recommended. -Ordered FNA inpatient, but radiology states that this is an outpatient procedure, will include on D/C Pulmonary Nodule Repeat in 1 year - LDCT via PCP DVT Prophylaxis: Lovenox 40mg SubQ Subjective Date/time seen: 10/03/24 1010 Interval history: Patient is a 49-year-old female with a past medical history of asthma, HTN, and anemia (transfusion and iron infusion dependent in the past - most recently, iron infusions in Mar and Apr). patient reports to the emergency department with symptoms of dizziness, she visited her primary care provider who diagnosed her with vertigo and recommended meclizine as well as performed the Ilcha maneuver without success in office. Upon examination today patient reports that meclizine was started here in the emergency department and since she has been taking it, reports mild relief. She describes her symptoms as spinning or lightheadedness. Patient denies nausea vomiting. Patient admitted for TIA workup vs vertigo. Pending echocardiogram with bubble study, bedside swallow, MRV of brain (Ativan for counterphobia, MRI & MRA performed already). Pt reports that she has had x3 family members with a hx of brain aneurysm, x3 ruptured, x2 survived (Aunt x2, distant cousin). Thyroid US yielded 2.9cm mass, recs for outpt FNA, pt made aware of this. Patient still reports vertigo type symptoms when she stands and walks. While I was at the bedside, neurology came and and we de briefed. Decision was made to order MRV, see below. Review of Systems Review of Systems: All systems reviewed & are unremarkable except as noted in HPI and below Constitutional: Comments: dizziness with movement Exam Const: General: comfortable and no acute distress Other: Obese. HENMT: Ears: TM's normal bilaterally Face/Nose/Sinus: Normal nares present Mouth: Yes moist mucous membranes Eyes: General: appearance normal, both eyes and all related structures Sclera: sclerae normal Neck: Neck: supple and no JVD Thyroid: thyroid normal Carotids: bruit Resp: Effort & Inspection: normal respiratory effort Auscultation: clear to auscultation bilaterally Cardio: Rate: regular rate Rhythm: regular rhythm GI: Inspection: non-distended Auscultation: normal bowel sounds Skin: General skin exam: normal color and no rashes or lesions noted Wou nds: no wounds Neuro: Speech: normal speech Motor exam (neuro): 5/5 motor strength present throughout and Normal motor muscle tone present throughout Sensory Exam: normal sensation Extrem: General: normal to inspection Psych: Mental Status: mental status grossly normal Affect: normal affect Objective Data Vital Signs Vital Signs: Vital Signs - 24 hr 10/02/24 08:00 10/02/24 09:15 10/02/24 12:00 Temperature Pulse Rate 85 100 Respiratory Rate Blood Pressure Pulse Oximetry Oxygen Delivery Room Air 10/02/24 14:00 10/02/24 16:00 10/02/24 19:37 Temperature 98.6 F 98.2 F Pulse Rate 89 82 77 Respiratory Rate 19 17 Blood Pressure 148/72 H 147/87 H Pulse Oximetry 100 100 Oxygen Delivery 10/02/24 20:00 10/02/24 20:00 10/02/24 22:04 Temperature Pulse Rate 77 78 87 Respiratory Rate 17 16 Blood Pressure Pulse Oximetry 100 Oxygen Delivery Room Air 10/03/24 00:00 10/03/24 04:00 10/03/24 04:10 Temperature 98.3 F Pulse Rate 83 71 68 Respiratory Rate 17 Blood Pressure 126/76 Pulse Oximetry 96 Oxygen Delivery Intake/Output Intake/Output: Intake & Output 09/30/24 10/01/24 10/02/24 10/03/24 23:59 23:59 23:59 23:59 Intake Total 2049 125 200 Balance 2049 1253 200 Meds/Results Medications: Active Medications Generic Name Dose Route Start Last Admin Trade Name Freq PRN Reason Stop Dose Admin Acetaminophen 650 mg 10/02/24 12:38 10/02/24 18:12 Acetaminophen 325 Mg Tablet PO 650 mg Q4H PRN Administration Headache Albuterol 2 puff 10/02/24 05:25 Albuterol Sulfate (*Sp) Aerosol 1 Puff INHALATION Q4-6H PRN shortness of breath or wheezing Amlodipine Besylate 10 mg 10/02/24 09:00 10/03/24 07:43 Amlodipine Besylate 10 Mg Tablet PO 10 mg DAILY TYRESE Administration Clonazepam 0.5 mg 10/02/24 05:25 Clonazepam (*Crx) 0.5 Mg Tablet PO DAILY PRN anxiety Cyclobenzaprine HCl 10 mg 10/02/24 05:25 Cyclobenzaprine Hcl 10 Mg Tablet PO Q8H PRN muscle spasm Enoxaparin Sodium 40 mg 10/02/24 09:00 10/03/24 07:50 Enoxaparin 40 Mg/0.4 Ml Syringe SUB-Q 40 mg DAILY TYRESE Administration Meclizine HCl 12.5 mg 10/02/24 09:00 10/03/24 07:43 Meclizine Hcl 12.5 Mg Tablet PO 12.5 mg DAILY TYRESE Administration Paroxetine HCl 30 mg 10/02/24 09:00 10/03/24 07:43 Paroxetine 10 Mg Tablet PO 30 mg DAILY TYRESE Administration Perflutren Lipid Microsphere 0 ml 10/02/24 05:32 Perflutren Lipid Microspheres 1.5 Ml Vial Diluted To 10 Ml Total Volume IV PUSH 10/05/24 05:32 ONCE PRN adequate visualization Protocol Fluticasone/Salmeterol 2 puff 10/02/24 08:00 10/02/24 21:50 Fluticasone/Salmeterol 115-21 Mcg Inhaler 1 Puff INHALATION 2 puff Q12HRT TYRESE Administration Radiology Results: ITS Impressions Chest X-Ray 10/01/24 19:19 IMPRESSION: No acute cardiopulmonary pathology Chest CT 10/01/24 23:16 IMPRESSION: Thyroid goiter. Scattered sub-6 mm pulmonary nodules, which require no additional evaluation unless the patient is at high risk, in which case consider low-dose noncontrast CT of the chest in one year. Dilated central pulmonary arteries as can be seen with pulmonary arterial hypertension. Head/Neck CTA 10/01/24 23:32 IMPRESSION: No acute intracranial process. Mucoperiosteal sinus disease, with possible acute sinusitis involving the left maxillary and ethmoid sinuses. No large vessel intracranial occlusion or high-grade intracranial stenosis. 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 4 mm hyperdensity associated with the anterior inferior sagittal sinus, possibly representing a small venous confluence. DVA, AVM, fenestration, or aneurysm not excluded. Consider nonemergent but timely MRI of the brain without and with contrast, with MRA/MRV. No carotid or vertebral artery occlusion, dissection, or significant stenosis. 2.2 cm left thyroid nodule, recommend outpatient thyroid ultrasound for further characterization. Brain MRI 10/02/24 14:09 IMPRESSION: 1. Normal brain. 2. Sinus disease. Labs Labs: Laboratory Results - last 24 hr 10/02/24 10/03/24 06:36 04:43 WBC 6.5 RBC 3.71 L Hgb 11.2 L Hct 35.9 L MCV 96.8 MCH 30.2 MCHC 31.2 L RDW 14.7 H Plt Count 403 H MPV 10.5 H Immature Gran % (Auto) 1.9 H Neut % (Auto) 88.1 H Lymph % (Auto) 8.1 L [place] % (Auto) 1.7 L Eos % (Auto) 0.0 Baso % (Auto) 0.2 Lymph # (Auto) 0.52 L [place] # (Auto) 0.1 Eos # (Auto) 0.0 Baso # (Auto) 0.0 Abs Immat Gran (auto) 0.12 H Absolute Neuts (auto) 5.7 Absolute Nucleated RBC 0.000 Band Neutrophils % Not Reportable Nucleated RBC % 0.0 Platelet Estimate Slightly increased Anisocytosis 1+ Schistocytes Rare Sodium 139 Potassium 4.5 Chloride 109 H Carbon Dioxide 21 L Anion Gap 9 BUN 12 Creatinine 0.77 Estim Creat Clear Calc 108 Estimated GFR > 60 Glucose 148 H Calcium 9.3 Total Bilirubin 0.3 AST 34 ALT 19 Alkaline Phosphatase 95 Total Protein 8.0 Albumin 4.4 Triglycerides 70 Cholesterol 183 LDL Cholesterol Direct 86 HDL Direct 48 Free T4 1.19 Total T3 1.35 Quality VTE Prophylaxis VTE prophylaxis: pharmacologic ordered
[2024-10-03] MEDS: FLUTICASONE/SALMETEROL 115-21 MCG INHALER 1 PUFF 2 PUFF INHALATION ×2 (09:06→20:55)
--- NOTE | 2024-10-03 13:47 | PCSTNOTE ---
Please refer to the Bedside Swallow Evaluation in the EMR. Please note, silent aspiration cannot be ruled out at bedside.
[2024-10-03] MEDS: ACETAMINOPHEN 325 MG TABLET 650 MG PO (13:48)
[2024-10-03] MEDS: clonazePAM (*CRX) 0.5 MG TABLET PO (20:34)
--- NOTE | 2024-10-03 22:03 | PC.NURSE ---
NOTIFIED GREGG HANKINS NP OF BP, ORDERS RECEIVED
[2024-10-03] MEDS: hydrALAZINE HCL 20 MG/ML VIAL 5 MG IV PUSH (23:28)
[2024-10-04] VITALS (9 sets, daily range): BP systolic 131–150; BP diastolic 91–92; PULSE 72–89; RESP 18–20; TEMP 36.9; O2SAT 98–100
[2024-10-04] MEDS: ACETAMINOPHEN 325 MG TABLET 650 MG PO (02:20)
--- NOTE | 2024-10-04 04:36 | PC.NURSE ---
TYLENOL GIVEN DURING COMPUTER DOWN TIME
[2024-10-04 05:27] LABS: Basophils Percent Auto 0.4 % (0.2-1.2); Eosinophils Absolute Auto 0.1 K/mm3 (0-0.3); Eosinophils Percent Auto 1.7 % (0-4.4); Hematocrit 34.9 % (37.0-47.0); Hemoglobin 11.3 g/dL (12.0-15.0); Immature Granulocyte Absolute 0.03 K/mm3 (0.00-0.031); Immature Granulocyte Percent A 0.4 % (0-0.5); Lymphocytes Absolute Auto 1.59 K/mm3 (0.9-3.2); Lymphocytes Percent Auto 22.3 % (18.3-44.2); Mean Corpuscular HGB Conc 32.4 g/dl (32-36); Mean Corpuscular Hemoglobin 30.4 pg (26-34); Mean Corpuscular Volume 93.8 fl (80-100); Mean Platelet Volume 9.8 fl (7.4-10.4); Monocytes Absolute Auto 0.6 K/mm3 (0.1-0.6); Monocytes Percent Auto 8.4 % (2.6-8.5); Neutrophils Absolute Auto 4.8 K/mm3 (1.3-6.7); Neutrophils Percent Auto 66.8 % (45.5-73.1); Platelet Count Result 376 k/mm3 (150-375); Red Blood Count 3.72 M/mm3 (4.2-5.4); Red Cell Distribution Width 14.8 % (11.5-14.5); White Blood Count 7.1 K/mm3 (4.5-10.0)
[2024-10-04 05:42] LABS: Alanine Aminotransferase 15 U/L (6-35); Alkaline Phosphatase 83 U/L (38-126); Anion Gap 7 mmol/L (4-12); Aspartate Amino Transferase 19 U/L (14-36); Bilirubin,Total 0.3 mg/dL (0.2-1.3); Blood Urea Nitrogen 17 mg/dL (7-17); Calcium 8.8 mg/dL (8.4-10.2); Carbon Dioxide 25 mmol/L (22-30); Chloride 107 mmol/L (98-107); Estimated CRCL calculation 98 ml/min; Estimated Glomerular Filt Rate > 60; Glucose 102 mg/dL (65-110); Potassium 3.6 mmol/L (3.4-5.0); Sodium 139 mmol/L (137-145)
[2024-10-04] MEDS: FLUTICASONE/SALMETEROL 115-21 MCG INHALER 1 PUFF 2 PUFF INHALATION (07:07)
[2024-10-04] MEDS: PARoxetine 10 MG TABLET 30 MG PO (09:02)
[2024-10-04] MEDS: amLODIPine BESYLATE 10 MG TABLET PO (09:02)
[2024-10-04] MEDS: MECLIZINE HCL 12.5 MG TABLET PO (09:02)
--- NOTE | 2024-10-04 09:07 | PM.DS ---
DS: Admitting Diagnosis Discharge Date 10/04/2024 Admitting Diagnosis Dizziness, cerebral artery aneurysm, goiter, lung nodules DS: Discharge Diagnosis Discharge Diagnosis (1) Abnormal computed tomography angiography (CTA): Code(s): R93.89 - Abnormal findings on diagnostic imaging of other specified body structures Status: Acute (2) Aneurysm, cerebral: Code(s): I67.1 - Cerebral aneurysm, nonruptured Status: Acute (3) Dizziness: Code(s): R42 - Dizziness and giddiness Status: Acute (4) Morbid obesity: Code(s): E66.01 - Morbid (severe) obesity due to excess calories Status: Acute Plan CVA/TIA/dizziness Pt reporting feeling much better today in terms of dizziness. She still plans to get a ride home just in case. CTA neck: No acute intracranial process. Mucoperiosteal sinus disease, with possible acute sinusitis involving the left maxillary and ethmoid sinuses. No large vessel intracranial occlusion or high-grade intracranial stenosis. 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 4 mm hyperdensity associated with the anterior inferior sagittal sinus, possibly representing a small venous confluence. DVA, AVM, fenestration, or aneurysm not excluded. Consider nonemergent but timely MRI of the brain without and with contrast, with MRA/MRV. No carotid or vertebral artery occlusion, dissection, or significant stenosis. 2.2 cm left thyroid nodule, recommend outpatient thyroid ultrasound for further characterization. Strict BP control SBP <140/90 - amlodipine 10mg daily Freq neuro check and NIHSS NIHSS 0 MRI Brain: WDL brain, per pt anxious/claustrophobic = Ativan 0.5mg IV ordered -Recs from neuro for an MRA/MRV for further delineation, ordered on 10/02 MRA brain: IMPRESSION: 1. Redemonstration of a 3 mm saccular aneurysm arising at the junction of the anterior cerebral and anterior communicating arteries. Otherwise unremarkable brain MR angiogram. -Per radiologist, MRV not needed due to CT and MRA being obtained. Echo: Summary 1. Agitated saline study did not reveal any [id number] shunt. 2. There is normal biventricular size and systolic function. 3. There are no significant valvular abnormalities in this study. The left ventricular ejection fraction is visually estimated to be 60-65%. Bedside swallow to r/o aspiration: WDL aspirin and statin -->LDL goal less than 70 - lipid panel 10/03 yielding LDL of 86, will start on mod statin and ASA 81mg at D/C, pt agreeable. Follow-up with PCP. Patient needs to follow up with vascular surgeon in the long run preventing the major stroke. -->NSURG consulted here and recommended vascular w/u outpt due to them not doing any vascular Dr. Ignacio [phone] -Spoke with Dr. Mcbride (neuro) today and he is agreeable for discharge with recs for close f/u with NEUROSURGERY. Pt to receive referral from PCP, will give pt contact info for [facility] and [facility] neurosurgical services to make an appointment with preferred facility. Neurology consulted, recs from 10/02: 1. dizziness 2 incidental finding of 3mm left anterior cerebral artery aneurysm which not at the level of surgical intervention but she definitely need to be seen by the neurosurgical service for the ongoing follow-up if our neurosurgical service do not deal with the aneurysm she can be referred to the neurosurgical service as an outpatient. As per the radiologist recommendations MRA a MRV can be carried out for the further delineation. 2. 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 Complex 2.9 cm left thyroid mass, TR 4. Ultrasound-guided fine-needle aspiration biopsy recommended. -Ordered FNA inpatient, but radiology states that this is an outpatient procedure, will include on D/C, f/u with PCP for this outpt order. Pulmonary Nodule Repeat in 1 year or sooner - LDCT via PCP DVT Prophylaxis: Lovenox 40mg SubQ while inpt DS: Summary Hospital Course Reason for hospitalization: Dizziness, cerebral artery aneurysm, goiter, lung nodules Hospital Course: Patient is a 49-year-old female with a past medical history of asthma, HTN, and anemia (transfusion and iron infusion dependent in the past - most recently, iron infusions in Mar and Apr). Patient reports to the emergency department with symptoms of dizziness, she visited her primary care provider who diagnosed her with vertigo and recommended meclizine as well as performed the Licha maneuver without success in office. Pt does however report mild relief with meclizine. She describes her symptoms as spinning or lightheadedness but reports today that her sx are much better. Patient denies nausea vomiting. While in the emergency department patient was diagnosed with thyroid goiter, lung nodules, and a new cerebral artery aneurysm measuring 3 mm. Patient admitted for TIA workup vs vertigo as well as further investigation into the thyroid. Echocardiogram with bubble study, bedside swallow WDL. Pt reports that she has had x3 family members with a hx of brain aneurysm, x3 ruptured, x2 survived (Aunt x2, distant cousin). Thyroid US yielded 2.9cm mass, recs for outpt FNA, pt made aware of this. While inpatient, patient underwent brain MRI which was normal as well as brain MRI a which yielded the same results as the head/neck CT. Recommendations per Neurology include close follow-up with Neurosurgery either at [facility] or [facility]. appropriate contact information was given to the patient. Patient to follow up closely also with her PCP for neurosurgery early referral, thyroid fine needle aspiration, and LDCT follow-up. Patient also to be started on ASA 81 mg and pravastatin 20 mg and to keep her high blood pressure under control also for the sake of her new aneurysm. Patient was given very thorough discharge instructions and was stressed the importance of following up with her primary care provider [facility]. Status at Discharge Functional status at discharge: independent ambulation Overall status at discharge: patient is progressing back to baseline Time Spent with Patient Time attestation: Total time spent providing and/or coordinating discharge services: Time spent: Greater than 30 minutes Exam Const: General: comfortable and no acute distress Other: Obese. HENMT: Ears: TM's normal bilaterally Face/Nose/Sinus: Normal nares present Mouth: Yes moist mucous membranes Eyes: General: appearance normal, both eyes and all related structures Sclera: sclerae normal Neck: Neck: supple and no JVD Thyroid: thyroid normal Carotids: bruit Resp: Effort & Inspection: normal respiratory effort Auscultation: clear to auscultation bilaterally Cardio: Rate: regular rate Rhythm: regular rhythm GI: Inspection: non-distended Auscultation: normal bowel sounds Skin: General skin exam: normal color and no rashes or lesions noted Wounds: no wounds Neuro: Speech: normal speech Motor exam (neuro): 5/5 motor strength present throughout and Normal motor muscle tone present throughout Sensory Exam: normal sensation Extrem: General: normal to inspection Psych: Mental Status: mental status grossly normal Affect: normal affect DS: Data Data Completed and Pending Labs on day of discharge: Labs from last 24 hours 10/04/24 10/04/24 05:00 04:59 WBC 7.1 RBC 3.72 L Hgb 11.3 L Hct 34.9 L MCV 93.8 MCH 30.4 MCHC 32.4 RDW 14.8 H Plt Count 376 H MPV 9.8 Immature Gran % (Auto) 0.4 Neut % (Auto) 66.8 Lymph % (Auto) 22.3 [place] % (Auto) 8.4 Eos % (Auto) 1.7 Baso % (Auto) 0.4 Lymph # (Auto) 1.59 [place] # (Auto) 0.6 Eos # (Auto) 0.1 Baso # (Auto) 0.0 Abs Immat Gran (auto) 0.03 Absolute Neuts (auto) 4.8 Absolute Nucleated RBC 0.000 Nucleated RBC % 0.0 Sodium 139 Potassium 3.6 Chloride 107 Carbon Dioxide 25 Anion Gap 7 BUN 17 Creatinine 0.85 Estim Creat Clear Calc 98 Estimated GFR > 60 Glucose 102 Calcium 8.8 Total Bilirubin 0.3 AST 19 ALT 15 Alkaline Phosphatase 83 Total Protein 7.0 Albumin 4.0 Discharge Plan Discharge Attending physician on discharge: Deonna Nguyễn Consulting providers: Tamir Mcbride Discharging Clinician: Deonna Nguyễn Anticipated Discharge Date/Time: 10/04/24 12:00 Patient Disposition: Home Activity: may shower and as tolerated Diet: heart healthy Discharge Instructions: 1. Establish with the new primary care provider (preferably your current to expedite these referrals, etc) to have these repeat/outpatient orders fulfilled: -Thyroid biopsy -->As discussed, you will need a referral from your primary care provider for a fine needle aspiration biopsy/patient services manager referral -Low density CT scan of your chest in one year (or depending on their recommendations) -Neurosurgery referral for the 3 mm left anterior cerebral artery aneurysm -->As discussed, you will need a referral from your primary care provider for a Neurosurgeon/cerebrovascular specialist to make an appt. Once this referral is sent, see below on the numbers to call to schedule said appt: -->[facility] ([facility]) [phone] option #2 -->[facility] ([facility]) [phone] (I was given the name of Dr. Barton as the aneurysm specialist) their Fax number is [phone] if your primary care provider asks Also, your primary care will want to be updated on this admission, etc. It is very important to follow-up with primary care as they will manage your future care with these above issues as well as your ongoing medical issues (high blood pressure, anemia, etc). 2. Until you meet with your primary care provider and/or the neurosurgeon, we are going to start you on a baby aspirin (81mg) daily (you can get this one over the counter if your insurance does not cover it) as well as a cholesterol medication (Pravastatin 20mg daily). Take the Pravastatin in the evening. 3. I am sending you home with a physical therapy referral today for vertigo (dizziness) therapy, continue to take your Meclizine as needed. -I faxed this order to physical therapy, once they get the order, they will call you to schedule this. If you do not hear from them in a few days, you can reach out to them at [phone] 4. You are going home today with all of your imaging on a disc so each specialty can reference those. Patient Instructions: Antibiotic Form, Lipid Profile (GEN), Thyroid Nodules (GEN), Pulmonary Nodules (GEN), Nonruptured Cerebral Aneurysm (GEN), Thyroid Fine-Needle Aspiration Biopsy (GEN) Patient Language: Bengali Stand Alone Forms: General Discharge Information Follow-up/Referrals: Thi,Divina Mendez MD [Primary Care Provider] - 1 Week (Outpatient referrals / current medical status post admission) Discharge Medications: New aspirin 81 mg tablet 81 mg PO DAILY Qty: 60 1RF pravastatin 20 mg tablet 20 mg PO DAILY Qty: 60 1RF Continued amlodipine 10 mg tablet 10 mg PO DAILY clonazepam 0.5 mg tablet 0.5 mg PO DAILY PRN (Reason: anxiety) meclizine 12.5 mg tablet 12.5 mg PO DAILY meloxicam 7.5 mg tablet 7.5 mg PO DAILY paroxetine HCl 30 mg tablet 30 mg PO DAILY albuterol sulfate 90 mcg/actuation HFA aerosol inhaler 2 puff INHALATION Q4-6H PRN (Reason: shortness of breath or wheezing) fluticasone propion-salmeterol [Wixela Inhub] 250-50 mcg/dose blister with device 1 inh INHALATION Q12H cyclobenzaprine 5 mg tablet 10 mg PO Q8H PRN (Reason: muscle spasm) Date of admission: 10/02/24 00:36 Primary Care Provider: ThiDivina Admitting Provider: Aashish Tan Attending physician on admission: Aashish Tan Condition: Stable Quality VTE Prophylaxis VTE prophylaxis: pharmacologic ordered Hospitalist MIPS Heart Failure (Exclusion) Patient has history of Heart Transplant or Left Ventricular Assistive Device?: No IF YES, STOP HERE Heart Failure (Qualifier) Patient has current or prior documentation of LVEF less than or equal to 40%, or mod/servere depressed LVSF?: No IF NO, STOP HERE
== END 2024-10-04 13:10 | disposition home or self-care (01) | DRG 69 ==
LOC: ANHED 10-02 00:35 → ANH2MED 10-02 08:48 → ANH3MEDSUR 10-07 14:50
PROVIDERS: Physician Assistant; Admitting Provider General Practice; Emergency Provider Emergency Medicine; PCP Student in an Organized Health Care Education/Training Program
DX: G45.9 Transient cerebral ischemic attack, unspecified (principal); Z68.42 Body mass index [BMI] 45.0-49.9, adult; I67.1 Cerebral aneurysm, nonruptured; E04.1 Nontoxic single thyroid nodule; I10 Essential (primary) hypertension; D64.9 Anemia, unspecified; R91.8 Other nonspecific abnormal finding of lung field; F41.9 Anxiety disorder, unspecified; J45.909 Unspecified asthma, uncomplicated; E66.01 Morbid (severe) obesity due to excess calories
CPT/HCPCS: 36415; 70496; 70498; 70544; 70551; 71045; 71250; 76536; 80053; 80061; 81001; 81025; 83735; 84439; 84443; 84480; 84484; 85025; 92610; 93005; 93306; 94640; 96361; 96365; 96375; 99285; A9270; J0360; J1100; J1650; J2060; J3360; J3475; J7030; Q9967